=== PATIENT | male | born 1950 | race African-American/Black ===

== ENCOUNTER 2017-01-23 11:42 | Inpatient (IN) ==
[2017-01-23] MEDS: SODIUM CHLORIDE 0.9% 1,000 ML IV SCH ×2 (11:43→20:38)
[2017-01-23] MEDS ORDERED: MIDAZOLAM 2 MG/2 ML VIAL IV ONE (11:44)
[2017-01-23] MEDS ORDERED: fentaNYL 100 MCG/2 ML VIAL IV ONE (11:44)
[2017-01-23] MEDS ORDERED: METOPROLOL TARTRATE 5 MG/5 ML VIAL IV ONE ×2 (11:47→11:57)
[2017-01-23] MEDS ORDERED: ENOXAPARIN 60 MG/0.6 ML SYRINGE IV ONE (12:01)
[2017-01-23] MEDS ORDERED: TIROFIBAN 5,000 MCG/100 ML PREMIX IV ONE (12:04)
[2017-01-23] MEDS ORDERED: TIROFIBAN 5,000 MCG/100 ML PREMIX IV SCH (12:11)
[2017-01-23] MEDS ORDERED: LIDOCAINE 1% 20 ML VIAL INFILTRAT ONE (13:12)
[2017-01-23] MEDS ORDERED: TICAGRELOR 90 MG TABLET PO ONE (13:12)
[2017-01-23] MEDS ORDERED: ZALEPLON 5 MG CAPSULE PO PRN (13:15)
[2017-01-23] MEDS ORDERED: ACETAMINOPHEN 325 MG TABLET PO PRN (13:15)
[2017-01-23] MEDS ORDERED: ALUMINUM/MAGNES/SIMETH MAX STR 30 ML UDCUP PO PRN (13:15)
[2017-01-23] MEDS ORDERED: HYDROmorphone 2 MG/1 ML VIAL IV PRN (13:15)
[2017-01-23] MEDS ORDERED: AMIODARONE INJ 150 MG in DEXTROSE 5% 100 ML IV ONE (13:15)
[2017-01-23] MEDS ORDERED: ONDANSETRON 4 MG/2 ML VIAL IV PRN (13:15)
--- NOTE | 2017-01-23 13:15 | Operative Note ---
Date of procedure: 01/23/17 Procedure Preformed: Left heart catheterization with selective right coronary angiograms with stenting of the PDA. Surgeon / Physician: Francisco Oconnor Infrastructure Manager: Hardeep Pagan Post-op diagnosis: other Findings: The patient admitted with chest pain tachycardia severely elevated/accelerated hypertension. Patient declared a STEMI as an outpatient. Patient had distal circumflex artery stenosis and PDA stenosis and was significant with appear to be chronic. Successful stent placement the PDA. See the full report. Specimens: none sent Estimated blood loss: minimal Condition: stable Anesthesia: local, conscious sedation Disposition: floor
[2017-01-23] MEDS ORDERED: AMIODARONE INJ 450 MG in DEXTROSE 5% 241 ML IV SCH ×2 (14:30→20:30)
--- NOTE | 2017-01-23 14:55 | Cardiology History & Physical ---
Assessment and Plan (1) Abnormal ECG Status: Acute Assessment and plan: ECG is abnormal. Certainly it may be ischemic. He is tachycardic. Current Visit: Yes (2) Coronary artery disease Status: Acute Assessment and plan: Patient was sent found to have PDA disease as well as distal circumflex artery stenosis. This disease may be the cause of chest pain with his tachycardia. Successful intervention of the PDA. Current Visit: Yes (3) Accelerated hypertension Status: Acute Assessment and plan: Patient may have a least one of his medications and I think atenolol. The patient now blood pressure severely elevated upon admission as was his heart rates. Current Visit: Yes (4) Diabetes mellitus Status: Acute Current Visit: Yes Qualifiers: Diabetes mellitus type: type 1 Diabetes mellitus complication status: with circulatory complication Diabetes mellitus complication detail: with other circulatory complications Qualified Code(s): E10.59 - Type 1 diabetes mellitus with other circulatory complications (5) Dyslipidemia Status: Chronic Assessment and plan: Will check on his lipids. Current Visit: Yes (6) Obesity Status: Acute Assessment and plan: Needs weight loss. I do not have the exact weight on him at this time. Current Visit: Yes History of Present Illness Chief complaint: Chest pain History of present illness: Mr. Jimmy Salter is a 66 year old male who is brought in via ambulance with a STEMI alert given. Patient brought directly to the catheterization laboratory because of the chest pain abnormal ECG. 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 The patient approximately 0930 began having chest pain. He may feel little short of breath. The pain was moderate in degree. Nonradiating. He has not had this previously. History significant for diabetes, hypertension, dyslipidemia for which he states he takes medications. He recently ran out of at least one of his blood pressure medications he thinks is atenolol. He did not get refill. He denies any significant edema or PND orthopnea. Said no syncope near syncope. Said no prior cardiac diagnoses or therapy or testing. ECG revealed what appeared to be a regular tachycardia possibly sinus but cannot rule out atrial flutter. The patient in the catheterization laboratory heart rate did slow him was in atrial fibrillation. He was given metoprolol IV in the catheterization laboratory. Home Medications Medication Instructions Recorded Confirmed Type Ascorbic Acid Tab [Vitamin C Tab] 500 mg PO DAILY 02/22/15 02/22/15 History Aspirin [Ecotrin] 81 mg PO DAILY 02/22/15 02/22/15 History Atenolol [Tenormin] 25 mg PO DAILY 02/22/15 02/22/15 History Captopril [Capoten] 50 mg PO TID 02/22/15 02/22/15 History Indapamide [Lozol] 1.25 mg PO DAILY 02/22/15 02/22/15 History Insulin NPH Hum/Reg Insulin Hm 14 unit SUBCUT AC SUPPER 02/22/15 02/22/15 History [NovoLIN 70/30] Insulin NPH Hum/Reg Insulin Hm 30 unit SUBCUT AC BREAKFAST 02/22/15 02/22/15 History [NovoLIN 70/30] Loratadine [Claritin] 10 mg PO DAILY 02/22/15 02/22/15 History NIFEdipine XL TAB [Procardia Xl] 60 mg PO DAILY 02/22/15 02/22/15 History Pantoprazole Tab [Protonix Tab] 40 mg PO DAILY 02/22/15 02/22/15 History Saxagliptin [Onglyza] 2.5 mg PO DAILY 02/22/15 02/22/15 History Simvastatin [Zocor] 80 mg PO DAILY 02/22/15 02/22/15 History Spironolactone [Aldactone] 25 mg PO DAILY 02/22/15 02/22/15 History Allergies Allergy/AdvReac Type Severity Reaction Status Date / Time No Known Allergies Allergy Verified 02/22/15 07:53 Review of systems: Constitutional: Denies anorexia, chills, fatigue, fever, frequent falls, night sweats, weight gain, weight loss Eyes: Denies visual changes or loss of vision Ears: Denies decreased hearing, vertigo Nose, mouth and throat: Denies dysphagia, epistaxis, headaches, neck pain, tongue swelling, Neck: Denies thyromegaly or masses. No stiffness. Cardiovascular: as per HPI Respiratory: Denies cough, dyspnea, hemoptysis, dyspnea on exertion, wheezing, snoring Gastrointestinal: Denies abdominal pain, constipation, dyspepsia, dysphagia, hematemesis, hematochezia, melena, nausea, vomiting Genitourinary: Denies dysuria, hematuria, nocturia Musculoskeletal: Denies arthralgias, joint swelling, muscle weakness, myalgias Neurological: denies abnormal gait, abnormal speech, confusion, convulsions, frequent falls, headaches, memory loss, syncope Psychiatric: Denies anxiety, confusion, depression Endocrine: Denies cold intolerance, fatigue, heat intolerance Hematologic/Lymphatic: Denies easy bleeding, easy bruising Dermatologic: Denies Rash, itching, shingles Medical,Surgical,& Family Hx - Medical History Cardio: History of: Hypertension, Cardiovascular Problems (heart murur) Neurology: No history of: Seizures Endocrine: History of: Diabetes Mellitus (IDDM) Rheumatology: History of;: Rheumatoid Arthritis Respiratory: History of: Pneumonia Renal: History of: Renal Failure (kidneys fuctioning 50%) Genitourinary: History of: Prostate Problems (prostate cancer) Gastrointestinal: History of: GERD, Gastrointestinal Bleed, Hemorrhoids Other: History of: Cancer (prostate cancer) - Surgical History HEENT Surgeries: Surgical HX of: Tonsilectomy & Adenoidectomy Abdominal Surgeries: Surgical HX of: Colonoscopy Reproductive Surgeries: Surgical HX of;: Prostate Surgery - Family History Family History: Reports;: Family Diabetes - Social History Smoking Status: Never smoker Cardiology Physical Exam - Constitutional Vitals: Intake and Output 01/22/17 01/23/17 01/23/17 23:59 07:59 15:59 Other: Weight 108.862 kg Patient Weight 01/23/17 23:59 Weight 108.862 kg Exam: General appearance: Obese, no acute distress Head exam: normal inspection, atraumatic Eye exam: Pupils are equal and reactive. EOMI. There is no trauma. Ear exam: Anatomically normal. Normal auditory acuity to conversation. Oral exam: No significant oral lesions. Neck exam: normal inspection no JVD. No carotid bruit. Trachea is in midline. Respiratory exam: clear to auscultation bilaterally anteriorly with good air movement. No rales, rhonchi or wheezes. Cardiovascular exam: regular rate and rhythm, no murmur or gallop or rub. No precordial lift. No bruits over the major arteries. Chest wall/torso: Anatomically normal. No tenderness, deformity Peripheral Pulses: 2+ throughout. GI/Abdominal exam: normal bowel sounds, soft and nontender, no abdominal bruits or pulsatile masses. Musculoskeletal/Extremities exam: normal inspection without edema or cyanosis. No deformities or trauma. Neurological exam: alert, oriented X3. There is no gross neurologic deficits. Psychiatric exam: normal affect, normal mood. Cognitive function is grossly intact. Skin exam: normal color, warm. No rashes or other skin lesions. Result/EKG - Impressions Impressions: ECG with tachycardia and diffuse lateral EKG abnormalities in 1 and aVF with probably normal J point upsloping STs. V1 is suspicious of J-point elevation and ST segment elevation. Certain this may be indicative ischemia. Quality Measures - VTE Contraindication to Pharmacological VTE Prophylaxis: High Risk of Bleeding
[2017-01-23 15:06] LABS: Basophils % 0.8 % (0.0-0.8); Eosinophils # 0.1 10*3/uL (0.0-0.87); Eosinophils % 3.7 % (0.00-10.9); Hematocrit 35.9 VOL% (42.0-52.0); Hemoglobin 11.9 GM/DL (14.0-18.0); Immature Granulocytes % 0.3 %; Immature Granulocytes Absolute 0.01 #; Lymphocytes # 0.7 10*3/uL (1.4-4.0); Lymphocytes % 19.4 % (21.2-54.2); Mean Corpuscular HGB Conc 33.1 GM/DL (32-36); Mean Corpuscular Hemoglobin 27 PG (27-34); Mean Corpuscular Volume 80.7 FL (87-102); Mean Platelet Volume 11.3 FL (9.6-12.0); Monocytes # 0.3 10*3/uL (0.11-0.8); Monocytes % 8.2 % (1.7-12.7); Neutrophils # 2.4 10*3/uL (1.4-7.4); Neutrophils % 67.6 % (38.7-73.9); Platelet Count 241 T/CUMM (130-400); Red Blood Count 4.45 MC/CUMM (3.8-5.5); Red Cell Distribution Width 15.2 % (9.3-17.3); White Blood Count 3.6 T/CUMM (4-12)
[2017-01-23 15:08] LABS: Apearance,Urine CLEAR (Clear); Bilirubin,Urine Negative (Negative); Blood, Urine Negative (Negative); Glucose,Urine (UA) >=500 mg/dL (Negative); Ketones,Urine Negative (Negative); Nitrite,Urine Negative (Negative); Protein,Urine 30 MG/DL; RBC,Urine 1 /HPF (0-4); Urine Color Straw (Yellow); Urine Specific Gravity 1.027 (1.001-1.035); Urine Urobilinogen < 2.0 EU/DL (0.2-1.0); WBC,Urine 1 /HPF (0-6)
[2017-01-23] MEDS: METOPROLOL TARTRATE 50 MG TABLET PO SCH ×2 (15:08→20:39)
[2017-01-23] MEDS: ASPIRIN EC 81 MG TABLET PO SCH (15:08)
--- NOTE | 2017-01-23 15:21 | EKG Report ---
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
--- NOTE | 2017-01-23 15:23 | Event Note ---
Patient doing well post catheterization. He is back in normal sinus rhythm. He is little bradycardic at this time and we will thus decrease his medications. Will go ahead and hold his amiodarone and diltiazem. He is having no chest pains and he is eating johnathan crackers.
[2017-01-23 15:48] LABS: Alanine Aminotransferase 16 U/L (16-61); Alkaline Phosphatase 80 U/L (45-117); Aspartate Amino Transferase 13 U/L (0-37); Bilirubin,Total < 0.39 MG/DL (0.2-1.0); Calcium 8.9 MG/DL (8.5-10.1)
[2017-01-23 15:49] LABS: Blood Urea Nitrogen 24 MG/DL (7-18); Glucose 221 MG/DL (74-106); Magnesium 2.2 MG/DL (1.8-2.4); Osmolality,Calculated 280.1 MOS/KG (273-304); Sodium 135 MMOL/L (136-145); Troponin I Only 0.302 NG/ML (0.00-0.045)
[2017-01-23] MEDS ORDERED: DILTIAZEM 60 MG TABLET PO SCH (17:00)
--- NOTE | 2017-01-23 18:13 | XRay Report ---
XR chest 1V portable Indication: Chest pain. Tachycardia. Comparison: None. Technique: Portable AP chest was performed. Findings: Underpenetrated study with Limited inspiration demonstrates prominent central vasculature as well as increased linear reticular interstitial markings in the lung bases with additional scattered airspace opacities in the lung bases. Mild cardiomegaly is present. Bones and soft tissues demonstrate no significant abnormalities. Impression: 1. The appearance of the chest is likely influenced by technique, however pulmonary venous hypertensive changes and/or minimal edema within the lung bases could additionally be considered. 01/23/2017 6:10 PM PROCEDURE INTERPRETED AT [facility] DEPARTMENT OF RADIOLOGY Final Report Signed by: Dr. Rich Pathak
--- NOTE | 2017-01-23 19:58 | Cardiac Catheterization ---
Date of Procedure:: 01/23/17 Pre-op Diagnosis: ST segment elevation myocardial infarction, tachycardia severely elevated blood pressure. Post-op diagnosis: other Procedure: LEFT HEART CATHERIZATION History: 66-year-old man had chest pain earlier today. He was thought to have an ST elevation microinfarction ECG by EMS. Patient brought catheterization auditory with diagnosis of STEMI. Patient was severely tachycardic at a heart rate greater than 100 2230. He was also noted that he was severely hypertensive with blood pressure of 210+ systolic and diastolic pressure of 110+ . Pre-Op diagnosis: Chest pain abnormal ECG and diagnosis of STEMI. ECG was certainly abnormal. He was tachycardic and severely hypertensive. Postoperative diagnosis: Coronary disease noted but appear to be more small vessel chronic. Successful intervention of the PDA. Heart rates management was noted to be in atrial fibrillation and to slow his heart rates down. Procedures: 1. Left heart catheterization. 2. Left ventricular angiogram. 3. Selective left and right coronary angiograms. 4. Percutaneous coronary intervention with stent in right PDA 5. Right common femoral artery angiogram with Angio-Seal hemostasis. Equipment: 6 [place]ander arterial sheath, 6 [place]ander diagnostic pigtail catheter, JL4 and JR4 diagnostic catheters. A 6 [place] Angio-Seal hemostatic device. For percutaneous coronary intervention of right PDA: Initially a JR4 guide was attempted but did not give adequate guide support and we exchanged for a hays [employer] guide. We had difficulty with this and used a [employer] support guide catheter inside this guide. Pro-water flex guidewire was the one that worked even though we try some others. We used a 2.0 x 15 mm Rx balloon for predilation with a total of 4 inflations ranged from 8-12 hiro in 11-25 seconds duration. We exchanged for a 2.25 x 60 mm Synergy ANGELA was deployed at 12 hiro for 20 seconds. Medications: Preoperative Benadryl and Valium given by mouth. Lidocaine 1% local anesthesia 10 mls administered by myself. Intraprocedure patient received Versed 2 milligrams IVP, fentanyl 100 micrograms IVP, Lopressor total of 10 milligrams IVP. For PCI: Lovenox 33 mgms; Aggrastat bolus 54.5 mls; Integrilin infusion 19.6 ml/hr, Brilinta 180 mgms. Complications: None immediate. Contrast: Omnipaque 390 milliliters. Description of procedure: Patient is brought emergent to the catheterization laboratory where their right groin was prepped and draped in usual fashion. IV sedation was then obtained after which local anesthesia was administered at the right groin over the right common femoral artery. Using modified Seldinger technique the right common femoral artery was cannulated with 6 [place] Ze[place]ander arterial sheath placed. The JL4 diagnostic coronary catheter was then advanced through the sheath in a retrograde approach and used to cannulate the left coronary artery of which angiograms were obtained in multiple projections. This catheter was then removed. The JR 4 diagnostic coronary catheter was then advanced retrograde through the aorta and used to cannulate the right coronary artery of which angiograms were obtained in multiple projections. Angiograms were then reviewed. Right coronary catheter was then removed. We proceeded with intervention of the PDA. Initially the JR4 guide catheters used but did not give us adequate support. We has changed for the hays crook guide catheter was gave us better support but still inadequate to cannulate the PDA in advance of balloon. A Guidezilla II catheter was used inside the PTCA guide through which we were able to advance the guidewire and balloon. Inflations were carried out as described above. It should be noted early we were able to get a balloon across early which is a 2.0 x 15 mm apex balloon with an 8 hiro inflation for 12 seconds. This is before we had exchanged for guide catheter in better support. After we had the better support 3 inflations were carried out as noted above at 12 hiro ranging from 11- 25 seconds. Once the predilation be carried out we exchanged for a 2.25 x 60 minutes Synergy ANGELA and this was deployed at 12 hiro for 20 seconds. We had excellent results without any additional acute complications. This time interventional equipment was removed. The guide cath was pulled into the sheath and right comfort angiogram was obtained noting that the sheath was inserted in the common femoral artery. This time the guide was completely removed. The pigtail catheter was then advanced through the sheath in a retrograde approach through the aorta to the aortic valve. The catheter was advanced through the aortic valve where left ventricular pressures were measured. The catheter was then pulled back into the aortic root and pressures measured. The catheter was then advanced across the aortic valve into the left ventricle where left ventricular angiogram was obtained in the right anterior oblique view. This catheter was then removed. Right cuff artery was then closed and hemostasis obtained using the Angio- Seal device. Hemodynamic data: LV 152/11, EDP 11; AO root 164/86, mean 115. Left ventricular angiogram: Left ventricle is normal size and overall probably normal systolic function at least ejection fraction of 55% and what appears to probably be left ventricular hypertrophy. There was no significant mitral valve regurgitation. The aortic valve appeared to be a tricuspid structure. Left main coronary artery angiogram: Left main coronary is large and long bifurcating LAD and circumflex arteries. It is without stenosis. Left anterior descending artery angiogram: The LAD proximally is a medium large size vessel. The first diagonal branch is small medium caliber but long vessel. Other diagonals are small-caliber. The LAD has probably some calcification luminal irregularities but less than 20% stenosis. MAURISIO-3 flow was present. LAD does extend to the posterior apical region. Circumflex artery angiogram: Circumflex artery and its very proximal portion at the takeoff from the left main is medium to large in size. The first obtuse marginal branch has a very proximal takeoff is a medium large size vessel, large area of anterior lateral myocardium. Beyond this the circumflex continues giving rise to some small obtuse marginal branches and very distally very small posterior ventricular branches. The very distal portion of the circumflex artery that is small has maybe 70-80% stenosis. This is a very tortuous area and vessels are small. Flow though appears to be at least MAURISIO II or MAURISIO-3. Right coronary artery angiogram: The RCA is a medium caliber vessel. It is dominant. PDA is somewhat of a small caliber vessel with proximal stenosis of 90% with MAURISIO II flow. There is diffuse luminal irregularities throughout the RCA proper with some calcification. The posterior lateral branches are small medium caliber vessels with a small AV node artery distally. PCI of right PDA: This was carried out as described above with the 90+% stenosis with MAURISIO-3 flow dilated 0% residual stenosis and MAURISIO-3 flow. Right common femoral artery angiogram: Right comfort is widely patent successfully initial hemostasis. Impression: 1. Left ventricle is normal size and systolic function ejection fraction probably at least 55% without segmental wall motion abnormalities. 2. LVEDP is normal at 11 mmHg. 3. There is no significant gradient across the aortic valve. 4. No significant mitral valve regurgitation is demonstrated 5. RCA with diffuse luminal irregularities and dominant. PDA had 90+% stenosis with MAURISIO II flow. 6. Successful stent placement to the PDA dilated from 90-0% residual stenosis and from MAURISIO II to MAURISIO III flow. 7. Left main coronary is widely patent without stenosis or disease. 8. Circumflex artery is nondominant luminal irregularities with a 78% distal stenosis and a very small vessel that is tortuous. 9. LAD widely patent luminal irregularities and some calcification. 10. Successful Angio-Seal of the right common femoral artery. Discussion: This patient's presenting ECG certainly appears to be potentially ischemic but only if he lays may be indicate ST segment elevation infarction. Much of his symptomatology and EKG findings I think is secondary to his tachycardia and severe hypertensive episode. We will follow the patient up post intervention catheterization. He should be aggressively treated for his medical issues. Certainly the fact that he ran out of his his antihypertensive medications is probably contributed to this event. Implants: See above Anesthesia: local, moderate conscious sedation Surgeon / Physician: Francisco Oconnor Network Systems Consultant: other (See immediate procedure note) Estimated blood loss: minimal Specimens: none sent Condition: stable Disposition: ICU/CCU - Medications / Follow-up
[2017-01-23] MEDS: TICAGRELOR 90 MG TABLET PO SCH (20:38)
[2017-01-23] MEDS: LOSARTAN 50 MG TABLET PO SCH (20:39)
[2017-01-23] MEDS ORDERED: ATORVASTATIN 40 MG TABLET PO SCH (21:00)
[2017-01-23 22:12] LABS: CKMB % 6.2 %
[2017-01-23 22:16] LABS: Troponin I Only 1.7 NG/ML (0.00-0.045)
[2017-01-23] MEDS: METOPROLOL TARTRATE 5 MG/5 ML VIAL IV PRN (23:24)
[2017-01-24] MEDS: hydrALAZINE 20 MG/1 ML VIAL IV PRN ×3 (01:44→16:57)
[2017-01-24] MEDS: NITROGLYCERIN SL 0.4 MG TABLET SL PRN ×3 (02:01→02:26)
[2017-01-24] MEDS ORDERED: MORPHINE 2 MG/1 ML SYRINGE IV PRN (02:16)
[2017-01-24] MEDS: SODIUM CHLORIDE 0.9% 1,000 ML IV SCH ×3 (04:41→20:12)
[2017-01-24] MEDS: cloNIDine 0.1 MG TABLET PO PRN (04:42)
[2017-01-24 05:33] LABS: Basophils % 0.5 % (0.0-0.8); Eosinophils # 0.2 10*3/uL (0.0-0.87); Eosinophils % 2.6 % (0.00-10.9); Hematocrit 36.2 VOL% (42.0-52.0); Hemoglobin 12.2 GM/DL (14.0-18.0); Immature Granulocytes % 0.3 %; Immature Granulocytes Absolute 0.02 #; Lymphocytes # 0.6 10*3/uL (1.4-4.0); Lymphocytes % 9.2 % (21.2-54.2); Mean Corpuscular HGB Conc 33.7 GM/DL (32-36); Mean Corpuscular Hemoglobin 27 PG (27-34); Mean Corpuscular Volume 79.2 FL (87-102); Mean Platelet Volume 11.4 FL (9.6-12.0); Monocytes # 0.5 10*3/uL (0.11-0.8); Monocytes % 8.1 % (1.7-12.7); Neutrophils # 4.9 10*3/uL (1.4-7.4); Neutrophils % 79.3 % (38.7-73.9); Platelet Count 234 T/CUMM (130-400); Red Blood Count 4.57 MC/CUMM (3.8-5.5); Red Cell Distribution Width 15.2 % (9.3-17.3); White Blood Count 6.2 T/CUMM (4-12)
[2017-01-24 06:08] LABS: Calcium 9.6 MG/DL (8.5-10.1); Osmolality,Calculated 284.7 MOS/KG (273-304); Potassium 3.9 MMOL/L (3.5-5.1)
[2017-01-24 06:09] LABS: Risk Ratio 4.21; VLDL CHOLESTEROL 24.2 MG/DL
[2017-01-24 06:27] LABS: CKMB % 4.6 %
[2017-01-24 06:28] LABS: Troponin I Only 1.3 NG/ML (0.00-0.045)
--- NOTE | 2017-01-24 07:46 | EKG Report ---
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
--- NOTE | 2017-01-24 08:47 | Cardiology Progress Note ---
<Ritu Botello E - Last Filed: 01/24/17 09:42> Assessment and Plan - Time spent with patient Time spent with patient: Less than 30 minutes (1) Abnormal ECG Status: Acute Assessment and plan: See plan of care listed below. Current Visit: Yes (2) Coronary artery disease Status: Acute Assessment and plan: See plan of care listed below. Current Visit: Yes (3) Accelerated hypertension Status: Acute Assessment and plan: See plan of care listed below. Current Visit: Yes (4) Diabetes mellitus Status: Chronic Assessment and plan: See plan of care listed below. Current Visit: Yes Qualifiers: Diabetes mellitus type: type 1 Diabetes mellitus complication status: with circulatory complication Diabetes mellitus complication detail: with other circulatory complications Qualified Code(s): E10.59 - Type 1 diabetes mellitus with other circulatory complications (5) Dyslipidemia Status: Chronic Assessment and plan: See plan of care listed below. Current Visit: Yes (6) Obesity Status: Chronic Assessment and plan: See plan of care listed below. Current Visit: Yes Qualifiers: Body mass index: BMI 33.0-33.9 Cardiology - PN: Subj Interval history: Tax Attorney: Dr. Ospina SUMMARY: Mr. Marquez is a 66 year old male who is brought to the hospital via ambulance with a STEMI alert. He was brought directly to the catheterization lab because of chest pain and abnormal EKG. He has a history of diabetes, hypertension, dyslipidemia. He had recently ran out of 1 of his blood pressure medications and did not get this refilled. His blood pressure was extremely elevated upon admission. EKG revealed what appeared to be regular tachycardia possibly sinus, but cannot rule out atrial flutter. 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 JANUARY 24, 2017 UPDATE: Mr. Marquez has been observed overnight in the CCU. He remains slightly hypertensive. We are continuing to adjust his medications. Right groin is open to air, no bleeding, hematoma, or bruit at site. Femoral pulse 3+. Distal pulses present and palpable bilaterally. His home medications were confirmed yesterday evening after we had already started him on appropriate medical therapy. We will change his calcium channel cesar back to Procardia this evening and see how he tolerates. Creatinine is 1.8 today. He is on Cozaar 50mg po BID. Will continue to monitor BMP. We'll transfer him to the floor today and continue to monitor. ASSESSMENT/PLAN: 1. ABNORMAL EKG - ECG abnormal on admission. Certainly it may be ischemic. Will further discuss with Dr. Oconnor and await additional recommendations. 2. 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 This disease may be the cause of chest pain with his tachycardia. Successful intervention of the PDA. 3. ACCELERATED HYPERTENSION - Remains slightly elevated. Will continue to monitor and adjust medications accordingly. 4. DIABETES MELLITUS - Continue accuchecks ACHS and sliding scale insulin. 5. DYSLIPIDEMIA - Continue lipid lowering agent. Lipid panel revealed triglycerides 121, cholesterol 164, LDL 107, HDL 39. 6. OBESITY - Chronic. Encouraged lifestyle modifications with diet and exercise. Cardiac rehab has been consulted. Exam (Progress Note) - Constitutional Vitals: Period Temp Pulse Resp BP Sys/Faulkner Pulse Ox Last 24 Hr 97.9 F-98.7 F 53-74 16-27 128-184/66-102 94-100 Exam: General: Present: Appears Well, No Apparent Distress. Pleasant and cooperative. HEENT: Present: PERRL, Normocephaly, atraumatic. Mucus Membranes Moist. No jaundice noted. Conjunctiva moist and clear. Neck: Present: Supple Neck, Midline Trachea, No Masses, No Bruit, No tenderness Cardiac: Present: Regular Rate and Rhythm, No Murmur Lungs: Present: clear to auscultation bilaterally, no wheezes, rhonchi, rales. Neuro: Present: Awake, alert, and oriented x3. Moves all extremities well without hemiparesis or paralysis. Grossly Intact. Absent: Resting Tremor, Essential Tremor Abdomen: Present: Soft, Active Bowel Sounds, No Masses, Non-Tender, nondistended. No abdominal bruit or thrill noted. Skin: Present: Clear. Absent: Rash, No skin breakdown. Back: Normal inspection, no vertebral tenderness. Musculoskeletal: Present: No Fluid Collection, No Pain, Normal Range of Motion Extremities: Present: Normal Gait, No Clubbing, No Cyanosis, Upper Extr. Pulses 2+, Lower Extr. Pulses 2+, No edema. Capillary refill less than 3 seconds. Right groin: No bleeding, hematoma, or bruit at site. Femoral pulse 3+. Distal pulses 2+ bilaterally. Result/EKG - Labs CBC & BMP: 01/24/17 04:45 01/24/17 04:45 Lab Results: I have reviewed the past 24 hour labs Labs: Laboratory Results - last 24 hr 01/23/17 01/23/17 01/23/17 14:00 14:47 14:47 WBC 3.6 L RBC 4.45 Hgb 11.9 L Hct 35.9 L MCV 80.7 L MCH 27 MCHC 33.1 RDW 15.2 Plt Count 241 MPV 11.3 Neut % (Auto) 67.6 Lymph % (Auto) 19.4 L Cache % (Auto) 8.2 Eos % (Auto) 3.7 Baso % (Auto) 0.8 Neut # (Auto) 2.4 Lymph # (Auto) 0.7 L Cache # (Auto) 0.3 Eos # (Auto) 0.1 Baso # (Auto) 0.0 Immature Gran % 0.3 Nucleated RBC % 0.0 Immature Gran # 0.01 Nucleated RBCs # 0.00 Immature Plt Fraction 0.0 Sodium 135 L Potassium 4.0 Chloride 102 Carbon Dioxide 28 Anion Gap 9.0 BUN 24 H Creatinine 1.60 H GFR Calculation 68 BUN/Creatinine Ratio 15.00 Glucose 221 H POC Glucose Calculated Osmolality 280.1 Calcium 8.9 Magnesium 2.2 Total Bilirubin < 0.39 AST 13 ALT 16 Alkaline Phosphatase 80 Total Creatine Kinase CK-MB (CK-2) CK and CKMB Interp Troponin I Total Protein 6.0 L Albumin 3.0 L Globulin 3.0 Albumin/Globulin Ratio 1.0 L Triglycerides Cholesterol LDL Cholesterol VLDL Cholesterol HDL Cholesterol Heart Disease Risk Ratio Urine Color Straw Urine Appearance Clear Urine pH 5.0 Ur Specific Leroy 1.027 Urine Protein 30 Urine Glucose (UA) >=500 Urine Ketones Negative Urine Blood Negative Urine Nitrate Negative Urine Bilirubin Negative Urine Urobilinogen < 2.0 H Urine Leukocytes Negative Urine RBC 1 Urine WBC 1 Ur Culture Indicated? Not indicated 01/23/17 01/23/17 01/23/17 14:47 15:13 20:45 WBC RBC Hgb Hct MCV MCH MCHC RDW Plt Count MPV Neut % (Auto) Lymph % (Auto) Cache % (Auto) Eos % (Auto) Baso % (Auto) Neut # (Auto) Lymph # (Auto) Cache # (Auto) Eos # (Auto) Baso # (Auto) Immature Gran % Nucleated RBC % Immature Gran # Nucleated RBCs # Immature Plt Fraction Sodium Potassium Chloride Carbon Dioxide Anion Gap BUN Creatinine GFR Calculation BUN/Creatinine Ratio Glucose POC Glucose 244 H 201 H Calculated Osmolality Calcium Magnesium Total Bilirubin AST ALT Alkaline Phosphatase Total Creatine Kinase 119 CK-MB (CK-2) 4.9 H CK and CKMB Interp Troponin I 0.302 H Total Protein Albumin Globulin Albumin/Globulin Ratio Triglycerides Cholesterol LDL Cholesterol VLDL Cholesterol HDL Cholesterol Heart Disease Risk Ratio Urine Color Urine Appearance Urine pH Ur Specific Leroy Urine Protein Urine Glucose (UA) Urine Ketones Urine Blood Urine Nitrate Urine Bilirubin Urine Urobilinogen Urine Leukocytes Urine RBC Urine WBC Ur Culture Indicated? 01/23/17 01/24/17 01/24/17 21:30 04:45 04:45 WBC 6.2 D RBC 4.57 Hgb 12.2 L Hct 36.2 L MCV 79.2 L MCH 27 MCHC 33.7 RDW 15.2 Plt Count 234 MPV 11.4 Neut % (Auto) 79.3 H Lymph % (Auto) 9.2 L Cache % (Auto) 8.1 Eos % (Auto) 2.6 Baso % (Auto) 0.5 Neut # (Auto) 4.9 Lymph # (Auto) 0.6 L Cache # (Auto) 0.5 Eos # (Auto) 0.2 Baso # (Auto) 0.0 Immature Gran % 0.3 Nucleated RBC % 0.0 Immature Gran # 0.02 Nucleated RBCs # 0.00 Immature Plt Fraction 0.0 Sodium 138 Potassium 3.9 Chloride 105 Carbon Dioxide 25 Anion Gap 11.9 BUN 25 H Creatinine 1.70 H GFR Calculation 63 BUN/Creatinine Ratio 14.00 Glucose 199 H POC Glucose Calculated Osmolality 284.7 Calcium 9.6 Magnesium Total Bilirubin AST ALT Alkaline Phosphatase Total Creatine Kinase 134 CK-MB (CK-2) 8.3 H CK and CKMB Interp 6.2 Troponin I 1.700 H D Total Protein Albumin Globulin Albumin/Globulin Ratio Triglycerides 121 Cholesterol 164 LDL Cholesterol 107.0 VLDL Cholesterol 24.2 HDL Cholesterol 39 L Heart Disease Risk Ratio 4.21 Urine Color Urine Appearance Urine pH Ur Specific Leroy Urine Protein Urine Glucose (UA) Urine Ketones Urine Blood Urine Nitrate Urine Bilirubin Urine Urobilinogen Urine Leukocytes Urine RBC Urine WBC Ur Culture Indicated? 01/24/17 01/24/17 04:45 07:47 WBC RBC Hgb Hct MCV MCH MCHC RDW Plt Count MPV Neut % (Auto) Lymph % (Auto) Cache % (Auto) Eos % (Auto) Baso % (Auto) Neut # (Auto) Lymph # (Auto) Cache # (Auto) Eos # (Auto) Baso # (Auto) Immature Gran % Nucleated RBC % Immature Gran # Nucleated RBCs # Immature Plt Fraction Sodium Potassium Chloride Carbon Dioxide Anion Gap BUN Creatinine GFR Calculation BUN/Creatinine Ratio Glucose POC Glucose 202 H Calculated Osmolality Calcium Magnesium Total Bilirubin AST ALT Alkaline Phosphatase Total Creatine Kinase 147 CK-MB (CK-2) 6.7 H CK and CKMB Interp 4.6 Troponin I 1.300 H D Total Protein Albumin Globulin Albumin/Globulin Ratio Triglycerides Cholesterol LDL Cholesterol VLDL Cholesterol HDL Cholesterol Heart Disease Risk Ratio Urine Color Urine Appearance Urine pH Ur Specific Leroy Urine Protein Urine Glucose (UA) Urine Ketones Urine Blood Urine Nitrate Urine Bilirubin Urine Urobilinogen Urine Leukocytes Urine RBC Urine WBC Ur Culture Indicated? - EKG EKG results: interpreted by me, sinus rhythm Quality Measures - VTE Contraindication to Pharmacological VTE Prophylaxis: High Risk of Bleeding Specialty Discharge - Follow Up or Referrals Follow up with: Dwayne Ospina MD [Physician] - 2 Weeks (Follow up with Dr. Ospina in 2 weeks for groin check with BMP and EKG. ) <Francisco Oconnor - Last Filed: 01/24/17 16:13> Assessment and Plan (1) Abnormal ECG Status: Acute Current Visit: Yes (2) Coronary artery disease Status: Acute Current Visit: Yes (3) Accelerated hypertension Status: Acute Current Visit: Yes (4) Diabetes mellitus Status: Chronic Current Visit: Yes Qualifiers: Diabetes mellitus type: type 1 Diabetes mellitus complication status: with circulatory complication Diabetes mellitus complication detail: with other circulatory complications Qualified Code(s): E10.59 - Type 1 diabetes mellitus with other circulatory complications (5) Dyslipidemia Status: Chronic Current Visit: Yes (6) Obesity Status: Chronic Current Visit: Yes Qualifiers: Body mass index: BMI 33.0-33.9 Cardiology - PN: Subj Interval history: Patient personally reviewed and examined and chart reviewed. Discussed his case with Ritu Botello NP. Patient had no further chest pain since admission. Had no shortness of breath. His blood pressures have still been higher than we would like. He is not sure what his baseline control was as an outpatient. His peak troponin was 1.7 with normal CPKs. His lipids are not at goal. We switched him from simvastatin to atorvastatin yesterday. Generally the patient is doing well though. He is not having any complaints. Agree with transferring to the floor monitoring. His blood pressures are stable tomorrow he could be discharged. I believe his primary care physician is Dr. Yen Au she can follow with his blood pressure but we can assist with this. Exam (Progress Note) - Constitutional Vitals: Period Temp Pulse Resp BP Sys/Faulkner Pulse Ox Last 24 Hr 98 F-98.7 F 56-81 12-27 151-185/66-97 94-100 Result/EKG - Labs CBC & BMP: 01/24/17 04:45 01/24/17 04:45 Labs: Laboratory Results - last 24 hr 01/23/17 01/23/17 01/24/17 20:45 21:30 04:45 WBC 6.2 D RBC 4.57 Hgb 12.2 L Hct 36.2 L MCV 79.2 L MCH 27 MCHC 33.7 RDW 15.2 Plt Count 234 MPV 11.4 Neut % (Auto) 79.3 H Lymph % (Auto) 9.2 L Cache % (Auto) 8.1 Eos % (Auto) 2.6 Baso % (Auto) 0.5 Neut # (Auto) 4.9 Lymph # (Auto) 0.6 L Cache # (Auto) 0.5 Eos # (Auto) 0.2 Baso # (Auto) 0.0 Immature Gran % 0.3 Nucleated RBC % 0.0 Immature Gran # 0.02 Nucleated RBCs # 0.00 Immature Plt Fraction 0.0 Sodium Potassium Chloride Carbon Dioxide Anion Gap BUN Creatinine GFR Calculation BUN/Creatinine Ratio Glucose POC Glucose 201 H Calculated Osmolality Calcium Total Creatine Kinase 134 CK-MB (CK-2) 8.3 H CK and CKMB Interp 6.2 Troponin I 1.700 H D Triglycerides Cholesterol LDL Cholesterol VLDL Cholesterol HDL Cholesterol Heart Disease Risk Ratio 01/24/17 01/24/17 01/24/17 04:45 04:45 07:47 WBC RBC Hgb Hct MCV MCH MCHC RDW Plt Count MPV Neut % (Auto) Lymph % (Auto) Cache % (Auto) Eos % (Auto) Baso % (Auto) Neut # (Auto) Lymph # (Auto) Cache # (Auto) Eos # (Auto) Baso # (Auto) Immature Gran % Nucleated RBC % Immature Gran # Nucleated RBCs # Immature Plt Fraction Sodium 138 Potassium 3.9 Chloride 105 Carbon Dioxide 25 Anion Gap 11.9 BUN 25 H Creatinine 1.70 H GFR Calculation 63 BUN/Creatinine Ratio 14.00 Glucose 199 H POC Glucose 202 H Calculated Osmolality 284.7 Calcium 9.6 Total Creatine Kinase 147 CK-MB (CK-2) 6.7 H CK and CKMB Interp 4.6 Troponin I 1.300 H D Triglycerides 121 Cholesterol 164 LDL Cholesterol 107.0 VLDL Cholesterol 24.2 HDL Cholesterol 39 L Heart Disease Risk Ratio 4.21 01/24/17 11:18 WBC RBC Hgb Hct MCV MCH MCHC RDW Plt Count MPV Neut % (Auto) Lymph % (Auto) Cache % (Auto) Eos % (Auto) Baso % (Auto) Neut # (Auto) Lymph # (Auto) Cache # (Auto) Eos # (Auto) Baso # (Auto) Immature Gran % Nucleated RBC % Immature Gran # Nucleated RBCs # Immature Plt Fraction Sodium Potassium Chloride Carbon Dioxide Anion Gap BUN Creatinine GFR Calculation BUN/Creatinine Ratio Glucose POC Glucose 254 H Calculated Osmolality Calcium Total Creatine Kinase CK-MB (CK-2) CK and CKMB Interp Troponin I Triglycerides Cholesterol LDL Cholesterol VLDL Cholesterol HDL Cholesterol Heart Disease Risk Ratio
[2017-01-24] MEDS ORDERED: PANTOPRAZOLE 40 MG TABLET PO SCH (09:00)
[2017-01-24] MEDS ORDERED: amLODIPine 5 MG TABLET PO SCH (09:00)
[2017-01-24] MEDS ORDERED: PANTOPRAZOLE 40 MG TABLET PO ONE (09:46)
[2017-01-24] MEDS: METOPROLOL TARTRATE 50 MG TABLET PO SCH ×2 (09:49→20:10)
[2017-01-24] MEDS: LOSARTAN 50 MG TABLET PO SCH ×2 (09:49→20:10)
[2017-01-24] MEDS: ASPIRIN EC 81 MG TABLET PO SCH (09:50)
[2017-01-24] MEDS: TICAGRELOR 90 MG TABLET PO SCH ×2 (09:50→20:10)
[2017-01-24] MEDS: FAMOTIDINE 20 MG TABLET PO SCH (09:54)
[2017-01-24] MEDS: DOCUSATE SODIUM 100 MG CAPSULE PO SCH ×2 (09:54→20:10)
[2017-01-24] MEDS: METOPROLOL TARTRATE 5 MG/5 ML VIAL IV PRN (18:31)
[2017-01-24] MEDS ORDERED: GLUCAGON 1 MG VIAL IM PRN (19:01)
[2017-01-24] MEDS ORDERED: DEXTROSE 50% 25 GM/50 ML SYRINGE IV PRN (19:01)
[2017-01-24] MEDS: INSULIN LISPRO 100 UNIT/ML SUBCUT SCH ×2 (19:55→20:11)
[2017-01-24] MEDS: ASCORBIC ACID 500 MG TABLET PO SCH (20:10)
[2017-01-24] MEDS: LORATADINE 10 MG TABLET PO SCH (20:10)
--- NOTE | 2017-01-24 20:18 | ECHO Report ---
Jimmy Bala Exam Date: 01/24/2017 07:48 Referring Physician: Technologist: Clarissa Agrawal RDCS Age: 66 Ht (in): 71 Wt (lb): 240 Gender: M Exam Location: [facility] Echo Indications: ST elevation (STEMI) myocardial infarction of unspecified site, Chest pain, unspecified, Essential (primary) hypertension, Tachycardia, unspecified, s/p CATH with stent BP: 173 / 87 HR: 70 Rhythm: Sinus Technical Quality: IMPRESSIONS 1. Left ventricle is normal size systolic function with moderate concentric left ventricular hypertrophy. Ejection fraction 60%. 2. Mildly dilated left atrium. 3. Right ventricle is probably normal size with free wall hypertrophy and normal systolic function. 4. Mitral valve slightly thickened and mild regurgitation. 5. Sclerotic aortic valve but functionally normal. 6. Trace to mild tricuspid regurgitation. 7. Mild pulmonic valve regurgitation. 8. Moderate to severely elevated right-sided pressures. MEASUREMENTS (Male / Female) Normal Values 2D ECHO LV Diastolic Diameter PLAX 4.8 cm 4.2 - 5.9 / 3.9 - 5.3 cm LV Systolic Diameter PLAX 3.0 cm LV Fractional Shortening PLAX 36.2 % IVS Diastolic Thickness 1.7 cm 0.6 - 1.0 / 0.6 - 0.9 cm LVPW Diastolic Thickness 1.7 cm 0.6 - 1.0 / 0.6 - 0.9 cm RV Internal Dim ED PLAX 3.9 cm Aortic Root Diameter 3.9 cm LA Systolic Diameter LX 4.7 cm 3.0 - 4.0 / 2.7 - 3.8 cm DOPPLER TR Peak Velocity 362.0 cm/s TR Peak Gradient 52.4 mmHg FINDINGS Left Ventricle Normal left ventricular cavity size. Moderate left ventricular hypertrophy. Left ventricular ejection fraction is estimated at 60 %. Right Ventricle Right ventricle grossly normal size and systolic function. Free wall hypertrophy. Right Atrium Right atrium is probably upper limits of normal size. Left Atrium Mildly increased left atrial size. Mitral Valve Mildly thickened mitral valve. Mild mitral valve regurgitation. Aortic Valve Aortic valve sclerosis without stenosis. Trace aortic valve regurgitation. Tricuspid Valve Morphologically normal tricuspid valve. Trace to mild tricuspid valve regurgitation. Tricuspid regurgitation velocities suggest a PAP of 62 mmHg. Pulmonic Valve Morphologically normal pulmonic valve. Mild pulmonary valve regurgitation. Pericardium No effusion noted. Aorta Aortic root is normal diameter. Francisco Oconnor MD (Electronically Signed) Final Date: 24 January 2017 20:17
[2017-01-25] MEDS: SODIUM CHLORIDE 0.9% 1,000 ML IV SCH ×2 (00:38→04:19)
[2017-01-25] MEDS: hydrALAZINE 20 MG/1 ML VIAL IV PRN (00:39)
[2017-01-25] MEDS: METOPROLOL TARTRATE 5 MG/5 ML VIAL IV PRN (04:19)
--- NOTE | 2017-01-25 07:17 | Event Note ---
Patient denies any chest pain shortness of breath. This morning his heart rate and blood pressure still higher especially his blood pressures and we will. I would increase some of his medication make some changes for this. His exam is really unremarkable. Will follow up with full note later.
[2017-01-25] MEDS: INSULIN LISPRO 100 UNIT/ML SUBCUT SCH ×4 (07:27→21:40)
--- NOTE | 2017-01-25 08:02 | Cardiology Progress Note ---
<Ritu Botello E - Last Filed: 01/25/17 07:56> Assessment and Plan - Time spent with patient Time spent with patient: Less than 30 minutes (1) NSTEMI (non-ST elevated myocardial infarction) Status: Acute Assessment and plan: See plan of care listed below. Current Visit: Yes (2) Coronary artery disease Status: Acute Assessment and plan: See plan of care listed below. Current Visit: Yes (3) Accelerated hypertension Status: Acute Assessment and plan: See plan of care listed below. Current Visit: Yes (4) Diabetes mellitus Status: Chronic Assessment and plan: See plan of care listed below. Current Visit: Yes Qualifiers: Diabetes mellitus type: type 1 Diabetes mellitus complication status: with circulatory complication Diabetes mellitus complication detail: with other circulatory complications Qualified Code(s): E10.59 - Type 1 diabetes mellitus with other circulatory complications (5) Dyslipidemia Status: Chronic Assessment and plan: See plan of care listed below. Current Visit: Yes (6) Obesity Status: Chronic Assessment and plan: See plan of care listed below. Current Visit: Yes Qualifiers: Body mass index: BMI 33.0-33.9 Cardiology - PN: Subj Interval history: Recovery Room Rn: Dr. Ospina SUMMARY: Mr. Marquez is a 66 year old male who is brought to the hospital via ambulance with a STEMI alert. He was brought directly to the catheterization lab because of chest pain and abnormal EKG. He has a history of diabetes, hypertension, dyslipidemia. He had recently ran out of 1 of his blood pressure medications and did not get this refilled. His blood pressure was extremely elevated upon admission. EKG revealed what appeared to be regular tachycardia possibly sinus, but cannot rule out atrial flutter. 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 JANUARY 25, 2017 UPDATE: Mr. Marquez remains slightly hypertensive. We are continuing to adjust his medications. Right groin is open to air, no bleeding, hematoma, or bruit at site. Femoral pulse 3+. Distal pulses present and palpable bilaterally. BMP is pending. He is on Cozaar 50mg po BID. Will continue to monitor BMP, if creatinine is stable, we may be able . We were going to transfer him to the floor yesterday but there were no beds available. If his blood pressure remains stable today, may be able to discharge home later this evening. Will further discuss with Dr. Oconnor and await additional recommendations. ASSESSMENT/PLAN: 1. NSTEMI- EKG was abnormal on admission. 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 He will be continued on DAPT, beta cesar, statin, and ARB. Will continue to monitor renal function. e 2. 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 This disease may be the cause of chest pain with his tachycardia. Successful intervention of the PDA. 3. ACCELERATED HYPERTENSION - Remains slightly elevated. Will continue to monitor and adjust medications accordingly. 4. DIABETES MELLITUS - Continue accuchecks ACHS and sliding scale insulin. 5. DYSLIPIDEMIA - Continue lipid lowering agent. Lipid panel revealed triglycerides 121, cholesterol 164, LDL 107, HDL 39. 6. OBESITY - Chronic. Encouraged lifestyle modifications with diet and exercise. Cardiac rehab has been consulted. Exam (Progress Note) - Constitutional Vitals: Period Temp Pulse Resp BP Sys/Faulkner Pulse Ox Last 24 Hr 97.8 F-98.3 F 65-81 13-24 164-193/71-107 95-100 Exam: General: Present: Appears Well, No Apparent Distress. Pleasant and cooperative. HEENT: Present: PERRL, Normocephaly, atraumatic. Mucus Membranes Moist. No jaundice noted. Conjunctiva moist and clear. Neck: Present: Supple Neck, Midline Trachea, No Masses, No Bruit, No tenderness Cardiac: Present: Regular Rate and Rhythm, No Murmur Lungs: Present: clear to auscultation bilaterally, no wheezes, rhonchi, rales. Neuro: Present: Awake, alert, and oriented x3. Moves all extremities well without hemiparesis or paralysis. Grossly Intact. Absent: Resting Tremor, Essential Tremor Abdomen: Present: Soft, Active Bowel Sounds, No Masses, Non-Tender, nondistended. No abdominal bruit or thrill noted. Skin: Present: Clear. Absent: Rash, No skin breakdown. Back: Normal inspection, no vertebral tenderness. Musculoskeletal: Present: No Fluid Collection, No Pain, Normal Range of Motion Extremities: Present: Normal Gait, No Clubbing, No Cyanosis, Upper Extr. Pulses 2+, Lower Extr. Pulses 2+, No edema. Capillary refill less than 3 seconds. Right groin: No bleeding, hematoma, or bruit at site. Femoral pulse 3+. Distal pulses 2+ bilaterally. Result/EKG - Labs CBC & BMP: 01/24/17 04:45 01/24/17 04:45 Lab Results: I have reviewed the past 24 hour labs Labs: Laboratory Results - last 24 hr 01/24/17 01/24/17 01/24/17 11:18 17:07 19:52 POC Glucose 254 H 203 H 240 H 01/25/17 07:10 POC Glucose 225 H - EKG EKG results: interpreted by me, sinus rhythm Quality Measures - VTE Contraindication to Pharmacological VTE Prophylaxis: High Risk of Bleeding Specialty Discharge - Follow Up or Referrals Follow up with: Dwayne Ospina MD [Physician] - 2 Weeks (Follow up with Dr. Ospina in 2 weeks for groin check with BMP and EKG. ) <ElvinFrancisco East - Last Filed: 01/25/17 12:55> Assessment and Plan (1) Abnormal ECG Status: Acute Current Visit: Yes (2) Coronary artery disease Status: Acute Current Visit: Yes (3) Accelerated hypertension Status: Acute Current Visit: Yes (4) Diabetes mellitus Status: Chronic Current Visit: Yes Qualifiers: Diabetes mellitus type: type 1 Diabetes mellitus complication status: with circulatory complication Diabetes mellitus complication detail: with other circulatory complications Qualified Code(s): E10.59 - Type 1 diabetes mellitus with other circulatory complications (5) Dyslipidemia Status: Chronic Current Visit: Yes (6) Obesity Status: Chronic Current Visit: Yes Qualifiers: Body mass index: BMI 33.0-33.9 Cardiology - PN: Subj Interval history: Patient personally interviewed and examined this morning chart reviewed. I discussed this case with Ritu Botello NP and agree with assessment and note. The patient's blood pressure is still elevated more than we want. Heart rate is fairly stable. He has had no further chest pain other symptomatology. Will make some adjustments in his medications and try to improve his blood pressure control. Have discussed this with the patient he voices understanding. Hopefully will be to discharge the patient soon but his blood pressures need to be better. Exam (Progress Note) - Constitutional Vitals: Period Temp Pulse Resp BP Sys/Faulkner Pulse Ox Last 24 Hr 97.4 F-99.6 F 65-84 12-28 144-193/71-107 95-100 Result/EKG - Labs CBC & BMP: 01/24/17 04:45 01/24/17 04:45 Labs: Laboratory Results - last 24 hr 01/24/17 01/24/17 01/25/17 17:07 19:52 07:10 POC Glucose 203 H 240 H 225 H 01/25/17 11:06 POC Glucose 221 H
[2017-01-25] MEDS: LOSARTAN 50 MG TABLET PO SCH ×2 (08:53→21:39)
[2017-01-25] MEDS: ASPIRIN EC 81 MG TABLET PO SCH (08:53)
[2017-01-25] MEDS: DOCUSATE SODIUM 100 MG CAPSULE PO SCH ×2 (08:53→21:40)
[2017-01-25] MEDS: TICAGRELOR 90 MG TABLET PO SCH ×2 (08:53→21:40)
[2017-01-25] MEDS: METOPROLOL TARTRATE 100 MG TABLET PO SCH ×2 (08:53→21:40)
[2017-01-25] MEDS: ASCORBIC ACID 500 MG TABLET PO SCH (08:53)
[2017-01-25] MEDS: LORATADINE 10 MG TABLET PO SCH (08:54)
[2017-01-25] MEDS: FAMOTIDINE 20 MG TABLET PO SCH (08:54)
[2017-01-25] MEDS ORDERED: amLODIPine 10 MG TABLET PO SCH (09:00)
[2017-01-25] MEDS: cloNIDine 0.1 MG TABLET PO PRN ×3 (21:39→21:59)
[2017-01-26 06:29] LABS: Calcium 8.8 MG/DL (8.5-10.1); Osmolality,Calculated 286.7 MOS/KG (273-304); Potassium 3.7 MMOL/L (3.5-5.1)
[2017-01-26] MEDS: FAMOTIDINE 20 MG TABLET PO SCH (09:37)
[2017-01-26] MEDS: ASCORBIC ACID 500 MG TABLET PO SCH (09:37)
[2017-01-26] MEDS: ASPIRIN EC 81 MG TABLET PO SCH (09:37)
[2017-01-26] MEDS: DOCUSATE SODIUM 100 MG CAPSULE PO SCH ×2 (09:37→21:09)
[2017-01-26] MEDS: LOSARTAN 50 MG TABLET PO SCH ×2 (09:38→21:09)
[2017-01-26] MEDS: LORATADINE 10 MG TABLET PO SCH (09:38)
[2017-01-26] MEDS: TICAGRELOR 90 MG TABLET PO SCH ×2 (09:39→21:09)
[2017-01-26] MEDS: METOPROLOL TARTRATE 100 MG TABLET PO SCH ×2 (09:39→21:09)
[2017-01-26] MEDS: INSULIN LISPRO 100 UNIT/ML SUBCUT SCH ×4 (09:40→21:09)
--- NOTE | 2017-01-26 10:55 | Cardiology Progress Note ---
Assessment and Plan (1) Abnormal ECG Status: Acute Assessment and plan: ECG is abnormal. Certainly it may be ischemic versus issue with hypertension probably LVH. Current Visit: Yes (2) Coronary artery disease Status: Acute Assessment and plan: Patient was sent found to have PDA disease as well as distal circumflex artery stenosis. This disease may be the cause of chest pain with his tachycardia. Successful intervention of the PDA. Is clinically stable. Current Visit: Yes (3) Accelerated hypertension Status: Acute Assessment and plan: His heart rates are better but his blood pressures remain elevated. He states that clonidine has affected his heart rates previously. We will have to monitor this. We will need to adjust his medications though for his poor blood pressure and hopefully not exacerbate his renal dysfunction. Current Visit: Yes (4) Diabetes mellitus Status: Chronic Assessment and plan: Continue him on sliding scale insulin while in the hospital. Current Visit: Yes Qualifiers: Diabetes mellitus type: type 1 Diabetes mellitus complication status: with circulatory complication Diabetes mellitus complication detail: with other circulatory complications Qualified Code(s): E10.59 - Type 1 diabetes mellitus with other circulatory complications (5) Dyslipidemia Status: Chronic Assessment and plan: Lipids are elevated and we have switched him from simvastatin to rosuvastatin. Current Visit: Yes (6) Obesity Status: Chronic Assessment and plan: Needs weight loss. This would benefit him from his multiple medical issues. Are noted he is not motivated though. Current Visit: Yes Qualifiers: Body mass index: BMI 33.0-33.9 Cardiology - PN: Subj Interval history: Patient clinically is doing well without chest pain shortness of breath or other symptomatology. He is up and about the room without limitations or complaints. He has had normal sinus rhythm without dysrhythmias. Some issues is that his creatinine is now 1.9, his blood pressures are not still adequately managed. We will need to adjust his medications for his renal function is well as his hypertension. We may require getting nephrology involved. Exam (Progress Note) - Constitutional Vitals: Period Temp Pulse Resp BP Sys/Faulkner Pulse Ox Last 24 Hr 97 F-101.6 F 62-88 18-28 143-190/74-91 91-97 Exam: General appearance: Obese, no acute distress HEENT exam: normal inspection, atraumatic, Dawna, EOM intact Neck exam: normal inspection no JVD. No carotid bruit. Trachea is in midline Respiratory/lungs exam: clear to auscultation bilaterally good air movement. Cardiovascular exam: regular rate and rhythm, no murmur or gallop or rub. No precordial lift. Chest wall exam: nontender GI/Abdominal exam: normal bowel sounds, soft, nontender, no abdominal bruits or pulsatile masses. Extremeties/musculoskeletal: normal inspection without edema or cyanosis. Neurological exam: alert, oriented X3, no focal deficits Psychiatric exam: normal affect, normal mood. Cognitive function is grossly normal. Skin exam: normal color, warm Result/EKG - Labs CBC & BMP: 01/24/17 04:45 01/26/17 05:30 Lab Results: I have reviewed the past 24 hour labs (Creatinine is more elevated today as is his BUN.) Labs: Laboratory Results - last 24 hr 01/25/17 01/25/17 01/25/17 11:06 15:24 21:32 Sodium Potassium Chloride Carbon Dioxide Anion Gap BUN Creatinine GFR Calculation BUN/Creatinine Ratio Glucose POC Glucose 221 H 274 H 275 H Calculated Osmolality Calcium 01/26/17 01/26/17 05:30 07:50 Sodium 138 Potassium 3.7 Chloride 108 H Carbon Dioxide 22 Anion Gap 11.7 BUN 26 H Creatinine 1.90 H GFR Calculation 55 BUN/Creatinine Ratio 13.00 Glucose 222 H POC Glucose 233 H Calculated Osmolality 286.7 Calcium 8.8 - Impressions Impressions: Telemetry with normal sinus rhythm Quality Measures - VTE Contraindication to Pharmacological VTE Prophylaxis: High Risk of Bleeding Specialty Discharge - Follow Up or Referrals Follow up with: Dwayne Ospina MD [Physician] - 2 Weeks (Follow up with Dr. Ospina in 2 weeks for groin check with BMP and EKG. )
[2017-01-26] MEDS: ROSUVASTATIN 20 MG TABLET PO SCH (12:19)
[2017-01-27 05:49] LABS: Osmolality,Calculated 287.8 MOS/KG (273-304); Potassium 3.9 MMOL/L (3.5-5.1)
[2017-01-27] MEDS: cloNIDine 0.1 MG TABLET PO PRN ×2 (06:22→06:29)
[2017-01-27] MEDS: SODIUM CHLORIDE 0.9% 1,000 ML IV SCH ×2 (08:07→18:23)
[2017-01-27] MEDS: ROSUVASTATIN 20 MG TABLET PO SCH (09:35)
[2017-01-27] MEDS: ASCORBIC ACID 500 MG TABLET PO SCH (09:36)
[2017-01-27] MEDS: METOPROLOL TARTRATE 100 MG TABLET PO SCH ×2 (09:36→21:30)
[2017-01-27] MEDS: TICAGRELOR 90 MG TABLET PO SCH ×2 (09:36→21:30)
[2017-01-27] MEDS: DOCUSATE SODIUM 100 MG CAPSULE PO SCH ×2 (09:36→21:30)
[2017-01-27] MEDS: LORATADINE 10 MG TABLET PO SCH (09:37)
[2017-01-27] MEDS: FAMOTIDINE 20 MG TABLET PO SCH (09:37)
[2017-01-27] MEDS: ASPIRIN EC 81 MG TABLET PO SCH (09:37)
[2017-01-27] MEDS: INSULIN LISPRO 100 UNIT/ML SUBCUT SCH ×4 (09:38→21:30)
--- NOTE | 2017-01-27 10:27 | Cardiology Progress Note ---
Assessment and Plan (1) Abnormal ECG Status: Chronic Assessment and plan: ECG is abnormal. Certainly it may be ischemic versus issue with hypertension probably LVH. Current Visit: Yes (2) Coronary artery disease Status: Acute Assessment and plan: Patient was sent found to have PDA disease as well as distal circumflex artery stenosis. This disease may be the cause of chest pain with his tachycardia. Successful intervention of the PDA. Is clinically stable. Continue to monitor this at this time. Current Visit: Yes (3) Accelerated hypertension Status: Acute Assessment and plan: His blood pressure is better but not where we would like to see them. With his renal dysfunction we have to be careful about dropping his blood pressure too quickly. I suspect this been high at home for quite some time. He has a history of what sounds to be noncompliance. Current Visit: Yes (4) Diabetes mellitus Status: Chronic Assessment and plan: Continue him on sliding scale insulin while in the hospital. Current Visit: Yes Qualifiers: Diabetes mellitus type: type 1 Diabetes mellitus complication status: with circulatory complication Diabetes mellitus complication detail: with other circulatory complications Qualified Code(s): E10.59 - Type 1 diabetes mellitus with other circulatory complications (5) Dyslipidemia Status: Chronic Assessment and plan: Lipids are elevated and we have switched him from simvastatin to rosuvastatin. We will monitor this as an outpatient. Current Visit: Yes (6) Obesity Status: Chronic Assessment and plan: Needs weight loss. This would benefit him from his multiple medical issues. Are noted he is not motivated though. Dietary is discussed this with him. Current Visit: Yes Qualifiers: Body mass index: BMI 33.0-33.9 (7) Acute on chronic renal insufficiency Status: Acute Assessment and plan: He had an element of renal sufficiency on admission that was found after his catheterization. His creatinine unfortunately continues to increase. We will continue hydration ask nephrology to see the patient. Current Visit: Yes (8) NSTEMI (non-ST elevated myocardial infarction) Status: Acute Assessment and plan: This was his presenting issue this is probably exacerbated by his severe accelerated hypertension and tachycardia. This is stable. Current Visit: Yes Cardiology - PN: Subj Interval history: Patient doing well from cardiac standpoint without chest pain shortness of breath. He said no dysrhythmias. States he has a good appetite slept well. His biggest issue is that of continued increased creatinine which may be multifactorial including medications, hypertensive episode, as well as contrast. Because it continues to elevate and his blood pressures are elevated him have to stop some his medication that may be adversely affecting his kidneys. We are going to continue his IV fluid and asked nephrology to see the patient. Exam (Progress Note) - Constitutional Vitals: Period Temp Pulse Resp BP Sys/Faulkner Pulse Ox Last 24 Hr 97.3 F-98.7 F 57-89 18-20 137-190/69-89 90-97 Exam: General appearance: Obese, no acute distress HEENT exam: normal inspection, atraumatic, Dawna, EOM intact Neck exam: normal inspection no JVD. No carotid bruit. Trachea is in midline Respiratory/lungs exam: clear to auscultation bilaterally good air movement. Cardiovascular exam: regular rate and rhythm, no murmur or gallop or rub. No precordial lift. Chest wall exam: nontender GI/Abdominal exam: normal bowel sounds, soft, nontender, no abdominal bruits or pulsatile masses. Extremeties/musculoskeletal: normal inspection without edema or cyanosis. Neurological exam: alert, oriented X3, no focal deficits Psychiatric exam: normal affect, normal mood. Cognitive function is grossly normal. Skin exam: normal color, warm Result/EKG - Labs CBC & BMP: 01/24/17 04:45 01/27/17 04:40 Labs: Laboratory Results - last 24 hr 01/26/17 01/26/17 01/26/17 10:55 15:22 19:58 Sodium Potassium Chloride Carbon Dioxide Anion Gap BUN Creatinine GFR Calculation BUN/Creatinine Ratio Glucose POC Glucose 301 H 313 H 283 H Calculated Osmolality Calcium 01/27/17 01/27/17 04:40 07:24 Sodium 137 Potassium 3.9 Chloride 107 Carbon Dioxide 22 Anion Gap 11.9 BUN 34 H Creatinine 2.10 H GFR Calculation 49 BUN/Creatinine Ratio 16.00 Glucose 231 H POC Glucose 253 H Calculated Osmolality 287.8 Calcium 9.0 - Impressions Impressions: Telemetry with normal sinus rhythm. Quality Measures - VTE Contraindication to Pharmacological VTE Prophylaxis: High Risk of Bleeding Specialty Discharge - Follow Up or Referrals Follow up with: Dwayne Ospina MD [Physician] - 2 Weeks (Follow up with Dr. Ospina in 2 weeks for groin check with BMP and EKG. )
--- NOTE | 2017-01-27 15:49 | Nephrology Consult Note ---
History of Present Illness Chief complaint: Elevated serum creatinine History of present illness: Mr. Jimmy Salter is a 66 year old male with history of hypertension, diabetes and chronic kidney disease followed by Dr. Corona twice a year was admitted for chest pain. He found to have evidence of ST elevated IN. He is status now post stent placement in his PDA. Patient serum creatinine has been trending up to 2.1. Nephrology is been consulted for renal issues. According to the patient, he sees Dr. bustillos twice yearly and his creatinine usually runs about 2. There is no history of tobacco use. There is no history of NSAID use. Of note , patient did receive contrast with his recent cardiac cath. No fevers or chills. No shortness of breath. Home Medications Medication Instructions Recorded Confirmed Type Ascorbic Acid Tab [Vitamin C Tab] 500 mg PO DAILY 02/22/15 01/23/17 History Aspirin [Ecotrin] 81 mg PO DAILY 02/22/15 01/23/17 History Atenolol [Tenormin] 25 mg PO DAILY 02/22/15 01/23/17 History Captopril [Capoten] 50 mg PO TID 02/22/15 01/23/17 History Indapamide [Lozol] 1.25 mg PO DAILY 02/22/15 01/23/17 History Insulin NPH Hum/Reg Insulin Hm 17 unit SUBCUT AC SUPPER 02/22/15 01/23/17 History [NovoLIN 70/30] Insulin NPH Hum/Reg Insulin Hm 50 unit SUBCUT AC BREAKFAST 02/22/15 01/23/17 History [NovoLIN 70/30] Loratadine [Claritin] 10 mg PO DAILY 02/22/15 01/23/17 History NIFEdipine XL TAB [Procardia Xl] 60 mg PO DAILY 02/22/15 01/23/17 History Pantoprazole Tab [Protonix Tab] 40 mg PO DAILY 02/22/15 01/23/17 History Simvastatin [Zocor] 80 mg PO DAILY 02/22/15 01/23/17 History Spironolactone [Aldactone] 25 mg PO DAILY 02/22/15 01/23/17 History Allergies Allergy/AdvReac Type Severity Reaction Status Date / Time No Known Allergies Allergy Verified 02/22/15 07:53 Medical,Surgical,& Family Hx - Medical History Cardio: History of: Hypertension, Cardiovascular Problems (heart murur) Neurology: No history of: Seizures Endocrine: History of: Diabetes Mellitus (IDDM) Rheumatology: History of;: Rheumatoid Arthritis Respiratory: History of: Pneumonia Renal: History of: Renal Failure Genitourinary: History of: Prostate Problems (prostate cancer) Gastrointestinal: History of: GERD, Gastrointestinal Bleed, Hemorrhoids Other: History of: Cancer (prostate cancer) - Surgical History HEENT Surgeries: Surgical HX of: Tonsilectomy & Adenoidectomy Abdominal Surgeries: Surgical HX of: Colonoscopy Reproductive Surgeries: Surgical HX of;: Prostate Surgery - Family History Family History: Reports;: Family Diabetes - Social History Smoking Status: Never smoker Review of Systems Constitutional: no anorexia, no chills Nose, mouth and throat: no hoarseness Cardiovascular: no diaphoresis, no dyspnea, no dyspnea on exertion Exam - Vital Signs Vital signs: Period Temp Pulse Resp BP Sys/Faulkner Pulse Ox Last 24 Hr 97.3 F-98.8 F 57-89 18-20 137-190/69-89 90-97 - General Appearance General appearance: well-developed, well-nourished EENT: ATNC Neck: supple Respiratory: clear Cardiology: regular rate, regular rhythm Gastrointestinal: normoactive bowel sounds, no tenderness Integumentary: no rash, warm and dry Neurologic: alert and oriented x3, CN 3-12 intact Musculoskeletal: no clubbing Psychiatric: mood/affect appropriate, cooperative Results - Labs CBC & BMP: 01/24/17 04:45 01/27/17 04:40 Assessment and Plan (1) Accelerated hypertension Status: Acute Current Visit: Yes (2) Diabetes mellitus Status: Chronic Current Visit: Yes Qualifiers: Diabetes mellitus type: type 1 Diabetes mellitus complication status: with circulatory complication Diabetes mellitus complication detail: with other circulatory complications Qualified Code(s): E10.59 - Type 1 diabetes mellitus with other circulatory complications (3) Obesity Status: Chronic Current Visit: Yes Qualifiers: Body mass index: BMI 33.0-33.9 (4) NSTEMI (non-ST elevated myocardial infarction) Status: Acute Current Visit: Yes (5) Acute on chronic renal insufficiency Status: Chronic Assessment and plan: Appears to be chronic kidney disease. Will repeat BMP in a.m. Renal ultrasound in a.m. Notify Dr. Corona of his patient in a.m. Current Visit: Yes Specialty Discharge - Follow Up or Referrals Follow up with: Dwayne Ospina MD [Physician] - 2 Weeks (Follow up with Dr. Ospina in 2 weeks for groin check with BMP and EKG. )
[2017-01-27] MEDS ORDERED: INSULIN NPH/REGULAR 70/30 100 UNIT/ML SUBCUT ONE (17:19)
[2017-01-27] MEDS: INSULIN NPH/REGULAR 70/30 100 UNIT/ML SUBCUT SCH (17:45)
[2017-01-27] MEDS: MAGNESIUM HYDROXIDE SUSP 30 ML UDCUP PO PRN (17:51)
[2017-01-28] MEDS: SODIUM CHLORIDE 0.9% 1,000 ML IV SCH ×2 (04:19→04:20)
[2017-01-28 05:20] LABS: Calcium 8.9 MG/DL (8.5-10.1); Osmolality,Calculated 283.7 MOS/KG (273-304); Potassium 3.9 MMOL/L (3.5-5.1)
[2017-01-28] MEDS: FAMOTIDINE 20 MG TABLET PO SCH (09:07)
[2017-01-28] MEDS: METOPROLOL TARTRATE 100 MG TABLET PO SCH ×2 (09:09→21:42)
[2017-01-28] MEDS: ASCORBIC ACID 500 MG TABLET PO SCH (09:09)
[2017-01-28] MEDS: ROSUVASTATIN 20 MG TABLET PO SCH (09:10)
[2017-01-28] MEDS: ASPIRIN EC 81 MG TABLET PO SCH (09:10)
[2017-01-28] MEDS: TICAGRELOR 90 MG TABLET PO SCH ×2 (09:11→21:41)
[2017-01-28] MEDS: LORATADINE 10 MG TABLET PO SCH (09:11)
[2017-01-28] MEDS: DOCUSATE SODIUM 100 MG CAPSULE PO SCH ×2 (09:11→21:41)
[2017-01-28] MEDS: INSULIN NPH/REGULAR 70/30 100 UNIT/ML SUBCUT SCH ×2 (09:12→18:17)
--- NOTE | 2017-01-28 09:23 | Ultrasound Report ---
US renal Bilateral Indication: Elevated creatinine. Comparison: 01/08/2011. RENAL ULTRASOUND: Grayscale and color Doppler imaging the kidneys performed. Right kidney measures 129 x 54 x 57 mm. Left kidney measures 120 x 72 x 58 mm. No hydronephrosis, mass, cyst or calcification identified on either side. Color Doppler flow at both renal pérez documented. Impression: Negative ultrasound the kidneys. PROCEDURE INTERPRETED AT [facility] DEPARTMENT OF RADIOLOGY Final Report Signed by: Francisco Grimm M.D.
[2017-01-28] MEDS ORDERED: ALBUTEROL/IPRATROPIUM 3 ML NEB RESP TX PRN (09:31)
[2017-01-28] MEDS ORDERED: FUROSEMIDE 40 MG/4 ML VIAL IV ONE (09:31)
--- NOTE | 2017-01-28 09:32 | Cardiology Progress Note ---
Assessment and Plan - Time spent with patient Time spent with patient: Less than 30 minutes (1) NSTEMI (non-ST elevated myocardial infarction) Status: Acute Assessment and plan: See plan of care listed below. Current Visit: Yes (2) Coronary artery disease Status: Acute Assessment and plan: See plan of care listed below. Current Visit: Yes (3) Accelerated hypertension Status: Acute Assessment and plan: See plan of care listed below. Current Visit: Yes (4) Diabetes mellitus Status: Chronic Assessment and plan: See plan of care listed below. Current Visit: Yes Qualifiers: Diabetes mellitus type: type 1 Diabetes mellitus complication status: with circulatory complication Diabetes mellitus complication detail: with other circulatory complications Qualified Code(s): E10.59 - Type 1 diabetes mellitus with other circulatory complications (5) Dyslipidemia Status: Chronic Assessment and plan: See plan of care listed below. Current Visit: Yes (6) Obesity Status: Chronic Assessment and plan: See plan of care listed below. Current Visit: Yes Qualifiers: Body mass index: BMI 33.0-33.9 (7) Acute on chronic renal insufficiency Status: Chronic Assessment and plan: See plan of care listed below. Current Visit: Yes (8) Dyspnea Status: Acute Assessment and plan: See plan of care listed below. Current Visit: Yes Qualifiers: Dyspnea type: shortness of breath Qualified Code(s): R06.02 - Shortness of breath; R06.00 - Dyspnea, unspecified; R06.01 - Orthopnea Cardiology - PN: Subj Interval history: Bid Manager: Dr. Ospina SUMMARY: Mr. Marquez is a 66 year old male who is brought to the hospital via ambulance with a STEMI alert. He was brought directly to the catheterization lab because of chest pain and abnormal EKG. He has a history of diabetes, hypertension, dyslipidemia. He had recently ran out of 1 of his blood pressure medications and did not get this refilled. His blood pressure was extremely elevated upon admission. EKG revealed what appeared to be regular tachycardia possibly sinus, but cannot rule out atrial flutter. 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 JANUARY 28, 2017 UPDATE: This morning, Mr. Marquez has been noticeably dyspneic. He is on 3 L O2 via NBP. Chest x-ray revealed bilateral pleural effusions most likely related to CHF. There is also noted to be interval progression of bilateral infiltrates, possibly pneumonia. BNP is pending. Although he has been receiving IV fluids to help flush his kidneys, we stopped these and will give him a one-time dose of IV Lasix. He does have some mild pitting edema in his bilateral lower extremities and his abdomen is very tight and distended. He does have some audible wheezing posteriorly upon exam. His artery been given his morning dose of Brilinta but in case a component of his shortness of breath is a side effect of this medicine. Will allow him to receive this evening's dose of Brilinta and change him to Plavix starting tomorrow with a loading dose in the morning. ASSESSMENT/PLAN: 1. NSTEMI- This was his presenting issue, probably exacerbated by his severe accelerated hypertension and tachycardia. Currently stable. EKG was abnormal on admission. 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 He will be continued on DAPT, beta cesar, statin, and ARB. Will continue to monitor renal function. 2. 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 This disease may be the cause of chest pain with his tachycardia. Successful intervention of the PDA. 3. ACCELERATED HYPERTENSION - Blood pressures remain elevated. With his renal dysfunction we have to be careful about dropping his blood pressure too quickly. Suspect this been high at home for quite some time. He has a history of what sounds to be noncompliance. Will continue to monitor and adjust medications accordingly. 4. DIABETES MELLITUS - Continue accuchecks ACHS and sliding scale insulin. 5. DYSLIPIDEMIA - Continue lipid lowering agent. Lipid panel revealed triglycerides 121, cholesterol 164, LDL 107, HDL 39. He was switched from Simvastatin to Rosuvastatin. 6. OBESITY - Chronic. Encouraged lifestyle modifications with diet and exercise. Cardiac rehab has been consulted. Needs weight loss. This would benefit him from his multiple medical issues. Are noted he is not motivated though. Dietary is discussed this with him. 7. ACUTE ON CHRONIC RENAL INSUFFICIENCY - He had an element of renal sufficiency on admission that was found after his catheterization. His creatinine unfortunately continues to increase. Nephrology was consulted and it seems his baseline creatinine is around 2. He is seen by Dr. Corona twice yearly for monitoring. He has been on IV fluids to help flush dye from his kidneys. 8. DYSPNEA - This morning, I was called to see Mr. Marquez as he had been dyspneic this AM. We obtained a stat chest x-ray, stopped his IV fluids, started. Breathing treatments, and give him a one-time dose of IV Lasix. Also obtain a BNP. Will further discuss with Dr. Ospina and await additional recommendations. Exam (Progress Note) - Constitutional Vitals: Period Temp Pulse Resp BP Sys/Faulkner Pulse Ox Last 24 Hr 96.4 F-98.8 F 57-91 16-20 144-186/55-94 91-97 Exam: General: Present: Appears Well, No Apparent Distress. Pleasant and cooperative. Mild tachypnea. HEENT: Present: PERRL, Normocephaly, atraumatic. Mucus Membranes Moist. No jaundice noted. Conjunctiva moist and clear. Neck: Present: Supple Neck, Midline Trachea, No Masses, No Bruit, No tenderness Cardiac: Present: Regular Rate and Rhythm, No Murmur Lungs: Present: Scattered wheezes posteriorly, no rhonchi, mildly tachypneic. Neuro: Present: Awake, alert, and oriented x3. Moves all extremities well without hemiparesis or paralysis. Grossly Intact. Absent: Resting Tremor, Essential Tremor Abdomen: Present: Firm, Active Bowel Sounds, No Masses, Non-Tender, distended. No abdominal bruit or thrill noted. Skin: Present: Clear. Absent: Rash, No skin breakdown. Back: Normal inspection, no vertebral tenderness. Musculoskeletal: Present: No Fluid Collection, No Pain, Normal Range of Motion Extremities: Present: Normal Gait, No Clubbing, No Cyanosis, Upper Extr. Pulses 2+, Lower Extr. Pulses 2+, 1+ pitting edema to BLE. Capillary refill less than 3 seconds. Right groin: No bleeding, hematoma, or bruit at site. Femoral pulse 3+. Distal pulses 2+ bilaterally. Result/EKG - Labs CBC & BMP: 01/24/17 04:45 01/28/17 03:33 Lab Results: I have reviewed the past 24 hour labs Labs: Laboratory Results - last 24 hr 01/27/17 01/27/17 01/27/17 11:30 15:57 20:58 Sodium Potassium Chloride Carbon Dioxide Anion Gap BUN Creatinine GFR Calculation BUN/Creatinine Ratio Glucose POC Glucose 334 H 324 H 294 H Calculated Osmolality Calcium 01/28/17 01/28/17 03:33 07:29 Sodium 138 Potassium 3.9 Chloride 107 Carbon Dioxide 23 Anion Gap 11.9 BUN 35 H Creatinine 2.00 H GFR Calculation 52 BUN/Creatinine Ratio 17.00 Glucose 108 H POC Glucose 176 H Calculated Osmolality 283.7 Calcium 8.9 - EKG EKG results: interpreted by me, sinus rhythm Quality Measures - VTE Contraindication to Pharmacological VTE Prophylaxis: High Risk of Bleeding Specialty Discharge - Follow Up or Referrals Follow up with: Dwayne Ospina MD [Physician] - 02/15/17 9:30 am (Follow up with Dr. Ospina in 2 weeks for groin check with BMP and EKG. )
--- NOTE | 2017-01-28 09:54 | XRay Report ---
Portable chest. Indication: Shortness of breath. Comparison: January 23, 2017. The heart is enlarged. There is calcific plaque present within the aortic knob. There is interval progression of bilateral infiltrates, which are predominantly alveolar. Bilateral pleural effusions are present. Impression: Significant interval worsening. The findings are most likely related to congestive heart failure, however pneumonia could also be present. PROCEDURE INTERPRETED AT [facility] DEPARTMENT OF RADIOLOGY Final Report Signed by: Dr. Yelitza Lobato
[2017-01-28] MEDS: INSULIN LISPRO 100 UNIT/ML SUBCUT SCH ×4 (10:05→21:41)
[2017-01-28 11:37] LABS: Basophils % 0.5 % (0.0-0.8); Eosinophils # 0.1 10*3/uL (0.0-0.87); Eosinophils % 0.9 % (0.00-10.9); Hematocrit 30.5 VOL% (42.0-52.0); Hemoglobin 10.4 GM/DL (14.0-18.0); Immature Granulocytes % 0.5 %; Immature Granulocytes Absolute 0.03 #; Lymphocytes # 0.2 10*3/uL (1.4-4.0); Lymphocytes % 3.3 % (21.2-54.2); Mean Corpuscular HGB Conc 34.1 GM/DL (32-36); Mean Corpuscular Hemoglobin 27 PG (27-34); Mean Corpuscular Volume 80.3 FL (87-102); Monocytes # 0.3 10*3/uL (0.11-0.8); Neutrophils # 5.9 10*3/uL (1.4-7.4); Neutrophils % 89.8 % (38.7-73.9); Platelet Count 228 T/CUMM (130-400); Red Cell Distribution Width 15.7 % (9.3-17.3); White Blood Count 6.6 T/CUMM (4-12)
--- NOTE | 2017-01-28 12:39 | Nephrology Progress Note ---
Nephrology - PN: Subj Interval history: Mr. Marquez is known to me. I have followed him for chronic renal failure. Baseline creatinine was 1.7 in October 2016. His creatinine zack after cardiac cath and stent placement. He denies chest pain today. He had some shortness of breath earlier this morning. He states it has improved Exam (PN)-Nephrology - Vital Signs Vital signs: Period Temp Pulse Resp BP Sys/Faulkner Pulse Ox Last 24 Hr 96.4 F-98.8 F 66-107 16-24 144-186/55-94 90-97 Exam: ENT: Normal Cardiovascular: Regular rate and rhythm. No murmur rub or gallop Lungs: Clear Extremities: 1+ edema - Lab 01/28/17 11:29 01/28/17 03:33 Most recent lab results Calcium 8.9 MG/DL (8.5-10.1) 01/28/17 03:33 Magnesium 2.2 MG/DL (1.8-2.4) 01/23/17 14:47 Assessment and Plan (1) Acute on chronic renal insufficiency Status: Chronic Assessment and plan: 66-year-old man with: * Acute SD. Status post cardiac cath and stent placement * CRF 3. Baseline creatinine 1.7. Creatinine zack to 2.1 yesterday. Improved to 2.0 today * CHF, mild. He received 40 mg Lasix this morning. Symptoms have improved * Pulmonary fibrosis. He has chronic WHITAKER * Diabetes mellitus * Hypertension Current Visit: Yes (2) Pulmonary fibrosis Status: Acute Current Visit: Yes (3) Coronary artery disease Status: Acute Current Visit: Yes (4) NSTEMI (non-ST elevated myocardial infarction) Status: Acute Current Visit: Yes (5) Diabetes mellitus Status: Chronic Current Visit: Yes Qualifiers: Diabetes mellitus type: type 1 Diabetes mellitus complication status: with circulatory complication Diabetes mellitus complication detail: with other circulatory complications Qualified Code(s): E10.59 - Type 1 diabetes mellitus with other circulatory complications Specialty Discharge - Follow Up or Referrals Follow up with: Dwayne Ospina MD [Physician] - 02/15/17 9:30 am (Follow up with Dr. Ospina in 2 weeks for groin check with BMP and EKG. )
[2017-01-28 12:51] LABS: Microcytosis Slight
--- NOTE | 2017-01-28 16:20 | Physician Query Form ---
CLICK EDIT DOCUMENT TO SELECT QUERY ANSWER --> OK --> SIGN Glenna Fierro RN Clinical Enterprise Resource Planning Consultant W) [phone] (f) [phone] [email or web address]: Make your selection(s) from the choices in EACH section by typing an "x" and enter comments in the comment section. Please use your independent medical judgment in providing your response. This request does not imply that any particular answer is desired or expected. CLINICAL INDICATORS: (Providers should not edit this section) Based on documentation of "CHF" "The patient has developed heart failure. Presumably it is from hydration post contrast." BNP of 628. "Will start furosemide 40 mg IV twice daily." Please provide further specificity regarding CHF. ACUITY: ( x) Acute ( ) Chronic ( ) Acute on Chronic ( ) Clinically unable to determine TYPE: ( ) Systolic (HFrEF - heart failure with reduced systolic function/EF) ( x) Diastolic (HFpEF - heart failure with preserved systolic function/EF) ( ) Combined Systolic/Diastolic ( ) Other, please specify: ( x) Clinically unable to determine --also some renal failure ( ) Past Medical History of Systolic CHF ( ) Past Medical History of Diastolic CHF ( x) Clinically unable to determine COMMENTS: PLEASE ALSO DOCUMENT RESPONSE IN PROGRESS NOTES AND/OR DISCHARGE SUMMARY Use of terms such as suspected, likely, or probable (associated with a specific diagnosis that is being evaluated, monitored, or treated as if it exists) are acceptable and can be restated in the discharge summary if not ruled out. MTDD
[2017-01-28] MEDS: FUROSEMIDE 40 MG/4 ML VIAL IV SCH (16:33)
[2017-01-29 05:58] LABS: Basophils % 0.5 % (0.0-0.8); Eosinophils # 0.3 10*3/uL (0.0-0.87); Eosinophils % 6.8 % (0.00-10.9); Hematocrit 29.8 VOL% (42.0-52.0); Hemoglobin 10.1 GM/DL (14.0-18.0); Immature Granulocytes % 0.2 %; Immature Granulocytes Absolute 0.01 #; Lymphocytes # 0.5 10*3/uL (1.4-4.0); Lymphocytes % 11.2 % (21.2-54.2); Mean Corpuscular HGB Conc 33.9 GM/DL (32-36); Mean Corpuscular Hemoglobin 27 PG (27-34); Mean Corpuscular Volume 78.8 FL (87-102); Mean Platelet Volume 11.1 FL (9.6-12.0); Monocytes # 0.4 10*3/uL (0.11-0.8); Neutrophils % 72.3 % (38.7-73.9); Platelet Count 261 T/CUMM (130-400); Red Blood Count 3.78 MC/CUMM (3.8-5.5); Red Cell Distribution Width 15.5 % (9.3-17.3); White Blood Count 4.1 T/CUMM (4-12)
[2017-01-29 06:31] LABS: Calcium 9.3 MG/DL (8.5-10.1); Magnesium 2.3 MG/DL (1.8-2.4); Osmolality,Calculated 294.4 MOS/KG (273-304); Potassium 3.4 MMOL/L (3.5-5.1)
[2017-01-29] MEDS ORDERED: CLOPIDOGREL 300 MG TABLET PO ONE (09:00)
[2017-01-29] MEDS: INSULIN LISPRO 100 UNIT/ML SUBCUT SCH ×4 (09:16→21:04)
[2017-01-29] MEDS: ASPIRIN EC 81 MG TABLET PO SCH (09:24)
[2017-01-29] MEDS: FAMOTIDINE 20 MG TABLET PO SCH (09:24)
[2017-01-29] MEDS: ROSUVASTATIN 20 MG TABLET PO SCH (09:24)
[2017-01-29] MEDS: ASCORBIC ACID 500 MG TABLET PO SCH (09:24)
[2017-01-29] MEDS: DOCUSATE SODIUM 100 MG CAPSULE PO SCH ×2 (09:24→21:04)
[2017-01-29] MEDS: INSULIN NPH/REGULAR 70/30 100 UNIT/ML SUBCUT SCH ×2 (09:25→17:33)
[2017-01-29] MEDS: LORATADINE 10 MG TABLET PO SCH (09:25)
[2017-01-29] MEDS: METOPROLOL TARTRATE 100 MG TABLET PO SCH ×2 (09:25→21:05)
[2017-01-29] MEDS: FUROSEMIDE 40 MG/4 ML VIAL IV SCH (09:26)
--- NOTE | 2017-01-29 10:45 | Cardiology Progress Note ---
Assessment and Plan - Time spent with patient Time spent with patient: Less than 30 minutes (1) NSTEMI (non-ST elevated myocardial infarction) Status: Acute Assessment and plan: See plan of care listed below. Current Visit: Yes (2) Coronary artery disease Status: Acute Assessment and plan: See plan of care listed below. Current Visit: Yes (3) Accelerated hypertension Status: Acute Assessment and plan: See plan of care listed below. Current Visit: Yes (4) Diabetes mellitus Status: Chronic Assessment and plan: See plan of care listed below. Current Visit: Yes Qualifiers: Diabetes mellitus type: type 1 Diabetes mellitus complication status: with circulatory complication Diabetes mellitus complication detail: with other circulatory complications Qualified Code(s): E10.59 - Type 1 diabetes mellitus with other circulatory complications (5) Dyslipidemia Status: Chronic Assessment and plan: See plan of care listed below. Current Visit: Yes (6) Obesity Status: Chronic Assessment and plan: See plan of care listed below. Current Visit: Yes Qualifiers: Body mass index: BMI 33.0-33.9 (7) Acute on chronic renal insufficiency Status: Chronic Assessment and plan: See plan of care listed below. Current Visit: Yes (8) Dyspnea Status: Acute Assessment and plan: See plan of care listed below. Current Visit: Yes Qualifiers: Dyspnea type: shortness of breath Qualified Code(s): R06.02 - Shortness of breath; R06.00 - Dyspnea, unspecified; R06.01 - Orthopnea Cardiology - PN: Subj Interval history: Live Source Operator: Dr. Ospina SUMMARY: Mr. Marquez is a 66 year old male who is brought to the hospital via ambulance with a STEMI alert. He was brought directly to the catheterization lab because of chest pain and abnormal EKG. He has a history of diabetes, hypertension, dyslipidemia. He had recently ran out of 1 of his blood pressure medications and did not get this refilled. His blood pressure was extremely elevated upon admission. EKG revealed what appeared to be regular tachycardia possibly sinus, but cannot rule out atrial flutter. 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 JANUARY 29, 2017 UPDATE: Mr. Marquez is feeling much better today. He was started on diuresis yesterday as well as breathing treatments PRN. He is not requiring any O2 this morning. Lungs sound considerably better, he continues to have some mild BLE edema. He was also changed from Brilinta to Plavix in case a component of his dyspnea was related to a side effect of Brilinta. Will transition IV lasix to PO and continue to monitor. Creatinine up to 2.3 today. Nephrology is following. We appreciate their assistance. ASSESSMENT/PLAN: 1. NSTEMI- This was his presenting issue, probably exacerbated by his severe accelerated hypertension and tachycardia. Currently stable. EKG was abnormal on admission. 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 He will be continued on DAPT, beta cesar, statin, and ARB. Will continue to monitor renal function. 2. 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 This disease may be the cause of chest pain with his tachycardia. Successful intervention of the PDA. 3. ACCELERATED HYPERTENSION - Blood pressures remain elevated. With his renal dysfunction we have to be careful about dropping his blood pressure too quickly. Suspect this been high at home for quite some time. He has a history of what sounds to be noncompliance. Will continue to monitor and adjust medications accordingly. 4. DIABETES MELLITUS - Continue accuchecks ACHS and sliding scale insulin. 5. DYSLIPIDEMIA - Continue lipid lowering agent. Lipid panel revealed triglycerides 121, cholesterol 164, LDL 107, HDL 39. He was switched from Simvastatin to Rosuvastatin. 6. OBESITY - Chronic. Encouraged lifestyle modifications with diet and exercise. Cardiac rehab has been consulted. Needs weight loss. This would benefit him from his multiple medical issues. Are noted he is not motivated though. Dietary is discussed this with him. 7. ACUTE ON CHRONIC RENAL INSUFFICIENCY - He had an element of renal sufficiency on admission that was found after his catheterization. His creatinine unfortunately continues to increase. Nephrology was consulted and it seems his baseline creatinine is around 2. He is seen by Dr. Corona twice yearly for monitoring. 8. DYSPNEA - BNP 628 yesterday, down to 444 today. CXR yesterday suggested a component of CHF. He has preserved EF. He is much improved today. We will continue offloading with diuretics and continue to monitor. Will repeat chest xray in AM. Will further discuss with Dr. Ospina and await additional recommendations. Exam (Progress Note) - Constitutional Vitals: Period Temp Pulse Resp BP Sys/Faulkner Pulse Ox Last 24 Hr 97.6 F-98.9 F 59-82 18-20 135-181/76-84 90-96 Exam: General: Present: Appears Well, No Apparent Distress. Pleasant and cooperative. Mild tachypnea. HEENT: Present: PERRL, Normocephaly, atraumatic. Mucus Membranes Moist. No jaundice noted. Conjunctiva moist and clear. Neck: Present: Supple Neck, Midline Trachea, No Masses, No Bruit, No tenderness Cardiac: Present: Regular Rate and Rhythm, No Murmur Lungs: Present: Diminished in bilateral bases posteriorly, otherwise clear to auscultation, no rhonchi, wheezes. Neuro: Present: Awake, alert, and oriented x3. Moves all extremities well without hemiparesis or paralysis. Grossly Intact. Absent: Resting Tremor, Essential Tremor Abdomen: Present: Firm, Active Bowel Sounds, No Masses, Non-Tender, distended. No abdominal bruit or thrill noted. Skin: Present: Clear. Absent: Rash, No skin breakdown. Back: Normal inspection, no vertebral tenderness. Musculoskeletal: Present: No Fluid Collection, No Pain, Normal Range of Motion Extremities: Present: Normal Gait, No Clubbing, No Cyanosis, Upper Extr. Pulses 2+, Lower Extr. Pulses 2+, 1+ pitting edema to BLE. Capillary refill less than 3 seconds. Right groin: No bleeding, hematoma, or bruit at site. Femoral pulse 3+. Distal pulses 2+ bilaterally. Result/EKG - Labs CBC & BMP: 01/29/17 05:27 01/29/17 05:27 Lab Results: I have reviewed the past 24 hour labs Labs: Laboratory Results - last 24 hr 01/28/17 01/28/17 01/28/17 10:40 11:29 11:39 WBC 6.6 RBC 3.80 Hgb 10.4 L Hct 30.5 L MCV 80.3 L MCH 27 MCHC 34.1 RDW 15.7 Plt Count 228 MPV 11.0 Neut % (Auto) 89.8 H Lymph % (Auto) 3.3 L Stevens % (Auto) 5.0 Eos % (Auto) 0.9 Baso % (Auto) 0.5 Neut # (Auto) 5.9 Lymph # (Auto) 0.2 L Stevens # (Auto) 0.3 Eos # (Auto) 0.1 Baso # (Auto) 0.0 Immature Gran % 0.5 Nucleated RBC % 0.0 Immature Gran # 0.03 Nucleated RBCs # 0.00 Immature Plt Fraction 0.0 Microcytosis Slight Sodium Potassium Chloride Carbon Dioxide Anion Gap BUN Creatinine GFR Calculation BUN/Creatinine Ratio Glucose POC Glucose 251 H Calculated Osmolality Calcium Magnesium B-Natriuretic Peptide 628 H 01/28/17 01/28/17 01/29/17 17:35 19:38 05:27 WBC 4.1 D RBC 3.78 L Hgb 10.1 L Hct 29.8 L MCV 78.8 L MCH 27 MCHC 33.9 RDW 15.5 Plt Count 261 MPV 11.1 Neut % (Auto) 72.3 Lymph % (Auto) 11.2 L Stevens % (Auto) 9.0 Eos % (Auto) 6.8 Baso % (Auto) 0.5 Neut # (Auto) 3.0 Lymph # (Auto) 0.5 L Stevens # (Auto) 0.4 Eos # (Auto) 0.3 Baso # (Auto) 0.0 Immature Gran % 0.2 Nucleated RBC % 0.0 Immature Gran # 0.01 Nucleated RBCs # 0.00 Immature Plt Fraction 0.0 Microcytosis Sodium Potassium Chloride Carbon Dioxide Anion Gap BUN Creatinine GFR Calculation BUN/Creatinine Ratio Glucose POC Glucose 336 H 299 H Calculated Osmolality Calcium Magnesium B-Natriuretic Peptide 01/29/17 01/29/17 01/29/17 05:27 05:27 07:50 WBC RBC Hgb Hct MCV MCH MCHC RDW Plt Count MPV Neut % (Auto) Lymph % (Auto) Stevens % (Auto) Eos % (Auto) Baso % (Auto) Neut # (Auto) Lymph # (Auto) Stevens # (Auto) Eos # (Auto) Baso # (Auto) Immature Gran % Nucleated RBC % Immature Gran # Nucleated RBCs # Immature Plt Fraction Microcytosis Sodium 140 Potassium 3.4 L Chloride 107 Carbon Dioxide 25 Anion Gap 11.4 BUN 39 H Creatinine 2.30 H GFR Calculation 44 BUN/Creatinine Ratio 16.00 Glucose 216 H POC Glucose 207 H Calculated Osmolality 294.4 Calcium 9.3 Magnesium 2.3 B-Natriuretic Peptide 444 H - EKG EKG results: interpreted by me, sinus rhythm Quality Measures - VTE Contraindication to Pharmacological VTE Prophylaxis: High Risk of Bleeding Specialty Discharge - Follow Up or Referrals Follow up with: Dwayne Ospina MD [Physician] - 02/15/17 9:30 am (Follow up with Dr. Ospina in 2 weeks for groin check with BMP and EKG. )
[2017-01-29] MEDS: MINOXIDIL 2.5 MG TABLET PO SCH ×2 (13:09→21:04)
[2017-01-29] MEDS ORDERED: POTASSIUM CHLORIDE 20 MEQ PACK PO ONE (14:26)
[2017-01-29] MEDS: FUROSEMIDE 40 MG TABLET PO SCH (17:32)
--- NOTE | 2017-01-29 18:18 | Nephrology Progress Note ---
Nephrology - PN: Subj Interval history: He denies shortness of breath or chest pain. Exam (PN)-Nephrology - Vital Signs Vital signs: Period Temp Pulse Resp BP Sys/Faulkner Pulse Ox Last 24 Hr 97 F-98.9 F 54-82 18-20 126-181/63-84 94-96 Exam: ENT: Normal Cardiovascular: Regular rate and rhythm. No murmur rub or gallop Lungs: Clear Extremities: 1+ edema - Lab 01/29/17 05:27 01/29/17 05:27 Most recent lab results Calcium 9.3 MG/DL (8.5-10.1) 01/29/17 05:27 Magnesium 2.3 MG/DL (1.8-2.4) 01/29/17 05:27 Assessment and Plan (1) Acute on chronic renal insufficiency Status: Chronic Assessment and plan: 66-year-old man with: * Acute LA. Status post cardiac cath and stent placement * CRF 3. Baseline creatinine 1.7. Creatinine higher today. * CHF, mild. Improved with diuresis. Lasix has been changed to p.o. * Pulmonary fibrosis. He has chronic WHITAKER * Diabetes mellitus * Hypertension Current Visit: Yes (2) Pulmonary fibrosis Status: Acute Current Visit: Yes (3) Coronary artery disease Status: Acute Current Visit: Yes (4) NSTEMI (non-ST elevated myocardial infarction) Status: Acute Current Visit: Yes (5) Diabetes mellitus Status: Chronic Current Visit: Yes Qualifiers: Diabetes mellitus type: type 1 Diabetes mellitus complication status: with circulatory complication Diabetes mellitus complication detail: with other circulatory complications Qualified Code(s): E10.59 - Type 1 diabetes mellitus with other circulatory complications Specialty Discharge - Follow Up or Referrals Follow up with: Dwayne Ospina MD [Physician] - 02/15/17 9:30 am (Follow up with Dr. Ospina in 2 weeks for groin check with BMP and EKG. )
[2017-01-30 05:28] LABS: Basophils % 0.9 % (0.0-0.8); Eosinophils # 0.3 10*3/uL (0.0-0.87); Eosinophils % 9.2 % (0.00-10.9); Hemoglobin 9.8 GM/DL (14.0-18.0); Immature Granulocytes % 1.2 %; Immature Granulocytes Absolute 0.04 #; Lymphocytes # 0.5 10*3/uL (1.4-4.0); Lymphocytes % 15.7 % (21.2-54.2); Mean Corpuscular HGB Conc 33.8 GM/DL (32-36); Mean Corpuscular Hemoglobin 27 PG (27-34); Mean Corpuscular Volume 79.5 FL (87-102); Mean Platelet Volume 10.9 FL (9.6-12.0); Monocytes # 0.3 10*3/uL (0.11-0.8); Monocytes % 10.1 % (1.7-12.7); Neutrophils # 2.1 10*3/uL (1.4-7.4); Neutrophils % 62.9 % (38.7-73.9); Platelet Count 268 T/CUMM (130-400); Red Blood Count 3.65 MC/CUMM (3.8-5.5); Red Cell Distribution Width 15.3 % (9.3-17.3); White Blood Count 3.4 T/CUMM (4-12)
[2017-01-30 06:07] LABS: Calcium 9.4 MG/DL (8.5-10.1); Magnesium 2.2 MG/DL (1.8-2.4); Osmolality,Calculated 289.3 MOS/KG (273-304); Potassium 3.5 MMOL/L (3.5-5.1)
--- NOTE | 2017-01-30 08:43 | XRay Report ---
XR chest 2V Indication: SOB Comparison: Chest x-ray dated January 28, 2017 Technique: Frontal and lateral views of the chest. Findings: Continued mild cardiomegaly. Mildly improved bilateral mid and lower lung consolidation with some residual remaining. Small bilateral pleural fluid. Visualized osseous and surrounding soft tissue structures appear grossly unchanged. IMPRESSION: As above. PROCEDURE INTERPRETED AT [facility] DEPARTMENT OF RADIOLOGY Final Report Signed by: Dr Yonatan Rodriguez
[2017-01-30] MEDS ORDERED: CLOPIDOGREL 75 MG TABLET PO SCH (09:00)
[2017-01-30] MEDS: FUROSEMIDE 40 MG TABLET PO SCH (09:09)
[2017-01-30] MEDS: ROSUVASTATIN 20 MG TABLET PO SCH (09:10)
[2017-01-30] MEDS: FAMOTIDINE 20 MG TABLET PO SCH (09:12)
[2017-01-30] MEDS: MINOXIDIL 2.5 MG TABLET PO SCH (09:12)
[2017-01-30] MEDS: ASCORBIC ACID 500 MG TABLET PO SCH (09:13)
[2017-01-30] MEDS: LORATADINE 10 MG TABLET PO SCH (09:14)
[2017-01-30] MEDS: METOPROLOL TARTRATE 100 MG TABLET PO SCH (09:14)
[2017-01-30] MEDS: DOCUSATE SODIUM 100 MG CAPSULE PO SCH (09:15)
[2017-01-30] MEDS: MAGNESIUM HYDROXIDE SUSP 30 ML UDCUP PO PRN (09:16)
[2017-01-30] MEDS: INSULIN NPH/REGULAR 70/30 100 UNIT/ML SUBCUT SCH (09:16)
[2017-01-30] MEDS: INSULIN LISPRO 100 UNIT/ML SUBCUT SCH ×2 (09:18→12:34)
[2017-01-30] MEDS: ASPIRIN EC 81 MG TABLET PO SCH (09:38)
--- NOTE | 2017-01-30 11:52 | Discharge Summary ---
Hospital Course - Hospital Course Hospital Course: Mr. Marquez is a 66 year old male who is brought to the hospital via ambulance with a STEMI alert. He was brought directly to the catheterization lab because of chest pain and abnormal EKG. He has a history of diabetes, hypertension, dyslipidemia. He had recently ran out of 1 of his blood pressure medications and did not get this refilled. His blood pressure was extremely elevated upon admission. EKG revealed what appeared to be regular tachycardia possibly sinus, and was felt to have sustained an NSTEMI. Patient was found to have PDA disease as well as distal circumflex artery stenosis and received successful intervention of the PDA. He had recurring issues with accelerated hypertension and renal insufficiency and subsequently required longer hospitalization. Nephrology was consulted and it seems his baseline creatinine is around 2. We appreciate their assistance. He had some post-catheterization dyspnea and pulmonary edema, likely due to hydration. He was diuresed and has done well. He was also transitioned from Brilinta to Plavix as a precaution in case a component of his dyspnea was related to side effects of Brilinta. Echocardiogram revealed EF 60%, Mild MR, mild MA, moderate to severe pulmonary hypertension. ROBERT/ARB has been avoided due to chronic renal insufficiency. His right groin cath site looks good. It is without bleeding, hematoma, or bruit. Femoral pulse is 3+. Distal pulses are present and palpable bilaterally. At this time, he has met maximum benefit from hospitalization and will be discharged home in stable condition. He will follow up with Dr. Ospina in 2-3 weeks with CBC, CMP and follow up with Dr. Jacob Corona in 3- 4 weeks. - Time spent with patient Time with patient DS: Greater than 30 minutes Diagnosis - Discharge Diagnosis (1) NSTEMI (non-ST elevated myocardial infarction) Status: Resolved (2) Coronary artery disease Status: Chronic (3) Accelerated hypertension Status: Resolved (4) Diabetes mellitus Status: Chronic (5) Dyslipidemia Status: Chronic (6) Obesity Status: Chronic (7) Acute on chronic renal insufficiency Status: Chronic (8) Dyspnea Status: Resolved (9) Hypertension Status: Chronic Specialty Discharge - Follow Up or Referrals Follow up with: Dwayne Ospina MD [Physician] - 02/15/17 9:30 am (Follow up with Dr. Ospina in 2 weeks for groin check with CBC, CMP and EKG. ) Discharge Plan - Discharge Data Disposition: Disch To Home/Self Care Condition at Discharge: Stable Discharge Diet: diabetic diet, heart healthy Activity: resume usual activities as tolerated, no lifting (No heavy lifting for the next 2-3 days. ) Hygiene: no restrictions Weight Bearing at Discharge: full weight bearing Driving: no restrictions Contact your physician if you experience:: fever over 101, Difficulty voiding, Redness or swelling, Nausea/Vomiting, Shortness of breath, Bleeding, pain uncontrolled by pain medications - Discharge Medications New Furosemide Tab [Lasix Tab] 40 mg PO BID DIURETIC #60 tablet Metoprolol Tartrate Tab [Lopressor Tab] 100 mg PO BID #60 tablet Minoxidil [Loniten] 5 mg PO BID #60 tablet Nitroglycerin Sl Tab [Nitrostat] 0.4 mg SL Q5M PRN #1 bottle PRN Reason: Chest Pain Rosuvastatin [Crestor] 40 mg PO DAILY #30 tablet cloNIDine TAB [Catapres Tab] 0.2 mg PO TID #90 tablet hydrALAZINE TAB [Apresoline Tab] 100 mg PO TID #90 tablet Clopidogrel [Plavix] 75 mg PO DAILY #30 tablet NIFEdipine XL TAB [Procardia Xl] 90 mg PO DAILY #30 tablet Continue Insulin NPH Hum/Reg Insulin Hm [NovoLIN 70/30] 17 unit SUBCUT AC SUPPER Insulin NPH Hum/Reg Insulin Hm [NovoLIN 70/30] 50 unit SUBCUT AC BREAKFAST Aspirin [Ecotrin] 81 mg PO DAILY Ascorbic Acid Tab [Vitamin C Tab] 500 mg PO DAILY Pantoprazole Tab [Protonix Tab] 40 mg PO DAILY Insulin Degludec [Tresiba Flextouch U-200] 50 units SUBCUT ONCE Insulin Aspart [NovoLOG FlexPen] 15 unit SUBCUT Loratadine [Claritin] 10 mg PO DAILY #15 tablet Discontinued Simvastatin [Zocor] 80 mg PO DAILY Indapamide [Lozol] 1.25 mg PO DAILY Atenolol [Tenormin] 25 mg PO DAILY Spironolactone [Aldactone] 25 mg PO DAILY NIFEdipine XL TAB [Procardia Xl] 60 mg PO DAILY Captopril [Capoten] 50 mg PO TID No Action Insulin Degludec [Tresiba Flextouch U-200] 200 unit SQ - Follow Up or Referral Follow Up: Dwayne Ospina MD [Physician] - 02/15/17 9:30 am (Follow up with Dr. Ospina in 2 weeks for groin check with BMP and EKG. ) - Forms/Instructions Instructions: Myocardial Infarction (GEN), Coronary Artery Disease (GEN), Left Heart Catheterization (DC), Heart Healthy Diet (GEN) Exam - Constitutional Vitals: Period Temp Pulse Resp BP Sys/Faulkner Pulse Ox Last 24 Hr 97 F-98.9 F 54-88 18-20 117-152/63-73 92-97 Exam: General: Present: Appears Well, No Apparent Distress. Pleasant and cooperative. Mild tachypnea. HEENT: Present: PERRL, Normocephaly, atraumatic. Mucus Membranes Moist. No jaundice noted. Conjunctiva moist and clear. Neck: Present: Supple Neck, Midline Trachea, No Masses, No Bruit, No tenderness Cardiac: Present: Regular Rate and Rhythm, No Murmur Lungs: Present: Diminished in bilateral bases posteriorly, otherwise clear to auscultation, no rhonchi, wheezes. Neuro: Present: Awake, alert, and oriented x3. Moves all extremities well without hemiparesis or paralysis. Grossly Intact. Absent: Resting Tremor, Essential Tremor Abdomen: Present: Firm, Active Bowel Sounds, No Masses, Non-Tender, distended. No abdominal bruit or thrill noted. Skin: Present: Clear. Absent: Rash, No skin breakdown. Back: Normal inspection, no vertebral tenderness. Musculoskeletal: Present: No Fluid Collection, No Pain, Normal Range of Motion Extremities: Present: Normal Gait, No Clubbing, No Cyanosis, Upper Extr. Pulses 2+, Lower Extr. Pulses 2+, 1+ pitting edema to BLE. Capillary refill less than 3 seconds. Right groin: No bleeding, hematoma, or bruit at site. Femoral pulse 3+. Distal pulses 2+ bilaterally. Discharge Results Procedures and tests throughout hospitalization: Pending Orders 01/31/17 04:00 Basic Metabolic Panel w/Mg IN AM Comp Blood Count Auto Diff IN AM Left heart catheterization 01/23/17: Left ventricular angiogram: Left ventricle is normal size and overall probably normal systolic function at least ejection fraction of 55% and what appears to probably be left ventricular hypertrophy. There was no significant mitral valve regurgitation. The aortic valve appeared to be a tricuspid structure. Left main coronary artery angiogram: Left main coronary is large and long bifurcating LAD and circumflex arteries. It is without stenosis. Left anterior descending artery angiogram: The LAD proximally is a medium large size vessel. The first diagonal branch is small medium caliber but long vessel. Other diagonals are small-caliber. The LAD has probably some calcification luminal irregularities but less than 20% stenosis. MAURISIO-3 flow was present. LAD does extend to the posterior apical region. Circumflex artery angiogram: Circumflex artery and its very proximal portion at the takeoff from the left main is medium to large in size. The first obtuse marginal branch has a very proximal takeoff is a medium large size vessel, large area of anterior lateral myocardium. Beyond this the circumflex continues giving rise to some small obtuse marginal branches and very distally very small posterior ventricular branches. The very distal portion of the circumflex artery that is small has maybe 70-80% stenosis. This is a very tortuous area and vessels are small. Flow though appears to be at least MAURISIO II or MAURISIO-3. Right coronary artery angiogram: The RCA is a medium caliber vessel. It is dominant. PDA is somewhat of a small caliber vessel with proximal stenosis of 90% with MAURISIO II flow. There is diffuse luminal irregularities throughout the RCA proper with some calcification. The posterior lateral branches are small medium caliber vessels with a small AV node artery distally. PCI of right PDA: This was carried out as described above with the 90+% stenosis with MAURISIO-3 flow dilated 0% residual stenosis and MAURISIO-3 flow. Right common femoral artery angiogram: Right comfort is widely patent successfully initial hemostasis. Impression: 1. Left ventricle is normal size and systolic function ejection fraction probably at least 55% without segmental wall motion abnormalities. 2. LVEDP is normal at 11 mmHg. 3. There is no significant gradient across the aortic valve. 4. No significant mitral valve regurgitation is demonstrated 5. RCA with diffuse luminal irregularities and dominant. PDA had 90+% stenosis with MAURISIO II flow. 6. Successful stent placement to the PDA dilated from 90-0% residual stenosis and from MAURISIO II to MAURISIO III flow. 7. Left main coronary is widely patent without stenosis or disease. 8. Circumflex artery is nondominant luminal irregularities with a 78% distal stenosis and a very small vessel that is tortuous. 9. LAD widely patent luminal irregularities and some calcification. 10. Successful Angio-Seal of the right common femoral artery. Discussion: This patient's presenting ECG certainly appears to be potentially ischemic but only if he lays may be indicate ST segment elevation infarction. Much of his symptomatology and EKG findings I think is secondary to his tachycardia and severe hypertensive episode. We will follow the patient up post intervention catheterization. He should be aggressively treated for his medical issues. Certainly the fact that he ran out of his his antihypertensive medications is probably contributed to this event. Labs on day of discharge: Labs from last 24 hours 01/30/17 01/30/17 01/30/17 11:36 07:34 04:52 WBC RBC Hgb Hct MCV MCH MCHC RDW Plt Count MPV Neut % (Auto) Lymph % (Auto) Ada % (Auto) Eos % (Auto) Baso % (Auto) Neut # (Auto) Lymph # (Auto) Ada # (Auto) Eos # (Auto) Baso # (Auto) Immature Gran % Nucleated RBC % Immature Gran # Nucleated RBCs # Immature Plt Fraction Sodium 141 Potassium 3.5 Chloride 107 Carbon Dioxide 24 Anion Gap 13.5 BUN 39 H Creatinine 2.20 H GFR Calculation 46 BUN/Creatinine Ratio 17.00 Glucose 100 POC Glucose 221 H 121 H Calculated Osmolality 289.3 Calcium 9.4 Magnesium 2.2 B-Natriuretic Peptide 01/30/17 01/30/17 01/29/17 04:52 04:52 19:43 WBC 3.4 L RBC 3.65 L Hgb 9.8 L Hct 29.0 L MCV 79.5 L MCH 27 MCHC 33.8 RDW 15.3 Plt Count 268 MPV 10.9 Neut % (Auto) 62.9 Lymph % (Auto) 15.7 L Ada % (Auto) 10.1 Eos % (Auto) 9.2 Baso % (Auto) 0.9 H Neut # (Auto) 2.1 Lymph # (Auto) 0.5 L Ada # (Auto) 0.3 Eos # (Auto) 0.3 Baso # (Auto) 0.0 Immature Gran % 1.2 Nucleated RBC % 0.0 Immature Gran # 0.04 Nucleated RBCs # 0.00 Immature Plt Fraction 0.0 Sodium Potassium Chloride Carbon Dioxide Anion Gap BUN Creatinine GFR Calculation BUN/Creatinine Ratio Glucose POC Glucose 332 H Calculated Osmolality Calcium Magnesium B-Natriuretic Peptide 200 H 01/29/17 01/29/17 16:52 11:48 WBC RBC Hgb Hct MCV MCH MCHC RDW Plt Count MPV Neut % (Auto) Lymph % (Auto) Ada % (Auto) Eos % (Auto) Baso % (Auto) Neut # (Auto) Lymph # (Auto) Ada # (Auto) Eos # (Auto) Baso # (Auto) Immature Gran % Nucleated RBC % Immature Gran # Nucleated RBCs # Immature Plt Fraction Sodium Potassium Chloride Carbon Dioxide Anion Gap BUN Creatinine GFR Calculation BUN/Creatinine Ratio Glucose POC Glucose 289 H 303 H Calculated Osmolality Calcium Magnesium B-Natriuretic Peptide DS: Provider Date of admission: 01/23/17 13:15 Primary care physician: . No PCP Attending physician on admission: Violeta Martinez Consults: 01/23/17 13:15 Consult to Cardiac Rehabilitation [CONS] Routine Reason for Cardiac Rehabilitation: Risk Factor Modification 01/27/17 07:10 Consult to Physician [CONS] Routine Comment: Acute on chronic renal sufficiency Consulting Provider: Consult to Specialist Group: Nephrology When should Consulting Provider be notified: Now Person Notified: Dr. Mcclelland Date Notified: 01/27/17 Time Notified: 08:30 Consult Notification Comment: physician paged and notified Discharging clinician: CARON Smith Expected date of discharge: 01/30/17
[2017-01-30 11:55] VITALS: BP 131/63
--- NOTE | 2017-01-30 17:23 | Nephrology Progress Note ---
Nephrology - PN: Subj Interval history: He denies chest pain or shortness of breath. Exam (PN)-Nephrology - Vital Signs Vital signs: Period Temp Pulse Resp BP Sys/Faulkner Pulse Ox Last 24 Hr 97.2 F-98.9 F 61-88 18-20 117-152/63-73 92-98 Exam: ENT: Normal Cardiovascular: Regular rate and rhythm. No murmur rub or gallop Lungs: Clear Extremities: 1+ edema - Lab 01/30/17 04:52 01/30/17 04:52 Most recent lab results Calcium 9.4 MG/DL (8.5-10.1) 01/30/17 04:52 Magnesium 2.2 MG/DL (1.8-2.4) 01/30/17 04:52 Assessment and Plan (1) Acute on chronic renal insufficiency Status: Chronic Assessment and plan: 66-year-old man with: * Acute [facility]. Status post cardiac cath and stent placement * CRF 3. Baseline creatinine 1.7. Creatinine slightly better today. He was instructed to monitor his weight at home. Outpatient follow-up scheduled * CHF, mild. Improved with diuresis. Lasix has been changed to p.o. * Pulmonary fibrosis. He has chronic WHITAKER * Diabetes mellitus * Hypertension (2) Pulmonary fibrosis Status: Acute (3) Coronary artery disease Status: Chronic (4) NSTEMI (non-ST elevated myocardial infarction) Status: Resolved (5) Diabetes mellitus Status: Chronic Qualifiers: Diabetes mellitus type: type 1 Diabetes mellitus complication status: with circulatory complication Diabetes mellitus complication detail: with other circulatory complications Qualified Code(s): E10.59 - Type 1 diabetes mellitus with other circulatory complications Specialty Discharge - Follow Up or Referrals Follow up with: Dwayne Ospina MD [Physician] - 02/15/17 9:30 am (Follow up with Dr. Ospina in 2 weeks for groin check with CBC, CMP and EKG. )
== END 2017-01-30 15:08 | disposition home or self-care (01) | DRG 246 ==
LOC: N.CL 11:42 → N.CC 13:15 → N.TELEN 01-25 17:16
PROVIDERS: ADMIT Internal Medicine Cardiovascular Disease; ATTEND Internal Medicine Cardiovascular Disease
PROC: CLCCHCL (ICD-10-PCS; 2017-01-23 13:15)

== ENCOUNTER 2017-02-26 17:18 | Inpatient (IN) ==
[2017-02-26] MEDS ORDERED: ASPIRIN 325 MG TABLET PO STA (17:39)
[2017-02-26] MEDS ORDERED: ASPIRIN 325 MG TABLET ONE (17:42)
--- NOTE | 2017-02-26 17:43 | Emergency Department Note ---
Arrival - Arrival Chief Complaint: Chest Pain Stated Complaint: PRESSURE IN CHEST ED Nursing Triage Note: c/o pressure in chest onset this am. denies n/v/d. +sob Mode of Arrival: Wheelchair Limitations: No Limitations Source: Patient Time Seen by Provider: 02/26/17 17:39 - History of Present Illness HPI Narrative: This 66-year-old black male presents with several hours of central chest tightness not associated with shortness of breath, nausea, vomiting, or diarrhea. He does complain of abdominal distention and constipation. The patient does not have a significant history for coronary artery disease and does take an aspirin daily. Currently at rest in bed he appears anxious but in no acute medical distress. Onset (ago): hour(s) (Patient presents several hours post onset) Allergies/Adverse Reactions: Allergies Allergy/AdvReac Type Severity Reaction Status Date / Time No Known Allergies Allergy Verified 02/22/15 07:53 Home Medications: Home Medications Medication Instructions Recorded Confirmed Type Ascorbic Acid Tab [Vitamin C Tab] 500 mg PO DAILY 02/22/15 02/02/17 History Aspirin [Ecotrin] 81 mg PO DAILY 02/22/15 02/02/17 History Pantoprazole Tab [Protonix Tab] 40 mg PO DAILY 02/22/15 02/02/17 History Insulin Degludec [Tresiba 50 units SUBCUT QAM 01/27/17 02/02/17 History Flextouch U-200] Clopidogrel [Plavix] 75 mg PO DAILY #30 tablet 01/30/17 02/02/17 Rx Furosemide Tab [Lasix Tab] 40 mg PO BID DIURETIC #60 tablet 01/30/17 02/02/17 Rx Loratadine [Claritin] 10 mg PO DAILY #15 tablet 01/30/17 02/02/17 Rx Metoprolol Tartrate Tab [Lopressor 100 mg PO BID #60 tablet 01/30/17 02/02/17 Rx Tab] Minoxidil [Loniten] 5 mg PO BID #60 tablet 01/30/17 02/02/17 Rx NIFEdipine XL TAB [Procardia Xl] 90 mg PO DAILY #30 tablet 01/30/17 02/02/17 Rx Nitroglycerin Sl Tab [Nitrostat] 0.4 mg SL Q5M PRN #1 bottle 01/30/17 02/02/17 Rx Rosuvastatin [Crestor] 40 mg PO DAILY #30 tablet 01/30/17 02/02/17 Rx cloNIDine TAB [Catapres Tab] 0.2 mg PO TID #90 tablet 01/30/17 02/02/17 Rx hydrALAZINE TAB [Apresoline Tab] 100 mg PO TID #90 tablet 01/30/17 02/02/17 Rx Insulin Aspart [NovoLOG] 17 units SUBCUT TIDAC 02/03/17 02/03/17 History Apixaban [Eliquis] 2.5 mg PO BID #60 tablet 02/06/17 Rx Sotalol [Betapace] 40 mg PO BID #60 tablet 02/06/17 Rx Review of System - Review of System 12 point system: reviewed and no additional remarkable complaints except as stated - Review of System Respiratory: Present: as per HPI Cardiovascular: Present: as per HPI Gastrointestinal: Present: as per HPI Medical,Surgical,& Family Hx - Medical History Cardio: History of: Hypertension, Cardiovascular Problems (heart murur) Neurology: No history of: Seizures Endocrine: History of: Diabetes Mellitus (IDDM) Rheumatology: History of;: Rheumatoid Arthritis Respiratory: History of: Pneumonia Renal: History of: Renal Failure Genitourinary: History of: Prostate Problems (prostate cancer) Gastrointestinal: History of: GERD, Gastrointestinal Bleed, Hemorrhoids Other: History of: Cancer (prostate cancer) - Surgical History HEENT Surgeries: Surgical HX of: Tonsilectomy & Adenoidectomy Abdominal Surgeries: Surgical HX of: Colonoscopy Reproductive Surgeries: Surgical HX of;: Prostate Surgery - Family History Family History: Reports;: Family Diabetes - Social History Smoking Status: Never smoker Frequency of Alcohol Use: None Type of Drug Use: None Exam Physical Examination: GENERAL: Obese black male in no acute distress. HEENT: Normocephalic. No trauma. Moist mucous membranes. EOMI. PERRLA. ENT NML NECK: Supple. No adenopathy. CARDIAC: Regular. No murmurs. Heart rate 73 CHEST: Clear to auscultation. No respiratory distress. O2 sat 95%. Some costosternal junction pain to palpation. ABDOMEN: Firm with midepigastric tenderness and hypoactive bowel sounds. EXTREMITIES: No trauma. Normal ROM. No pedal edema. SKIN: No diaphoresis. No rash. NEURO: Alert. Neuro intact. No focal deficits. Vital Signs: Vital Signs Temperature 97.8 F 09/12/17 17:25 Pulse Rate 66 02/26/17 18:30 Respiratory Rate 18 02/26/17 18:30 Blood Pressure 138/67 02/26/17 18:30 O2 Sat by Pulse Oximetry 96 02/26/17 18:30 Course - Reevaluation(s) Reevaluation #1: Discussed with patient the need for hospitalization given his kidney function. - Consultations Consultation #1: Discussed with hospitalist service who will admit for further evaluation treatment peer Results - Labs CBC & BMP: 02/26/17 17:47 02/26/17 17:47 Labs: I have reviewed the laboratory noted the depressed hematocrit, renal failure numbers, elevated BMP, and elevated troponins. - Impressions EKG: Sinus rhythm at 70 with normal AR interval and nonspecific intraventricular conduction delay. Diffuse nonspecific ST changes with T-wave inversion in the lateral leads but no acute injury pattern noted. - Diagnostic Findings Procedure: Abdominal x-ray: image reviewed by me, report reviewed by me (Severe constipation), Chest x-ray: image reviewed by me, report reviewed by me (Mild cardiomegaly with borderline failure.) Disposition Clinical Impression: Renal failure, Congestive failure, Severe constipation, Prostate cancer Case discussed with: patient Disposition: Still a Patient Condition: Guarded Time of Disposition: 19:04
[2017-02-26 18:02] LABS: Basophils % 0.2 % (0.0-0.8); Eosinophils # 0.1 10*3/uL (0.0-0.87); Eosinophils % 2.2 % (0.00-10.9); Hematocrit 24.9 VOL% (42.0-52.0); Hemoglobin 8.3 GM/DL (14.0-18.0); Immature Granulocytes % 0.4 %; Immature Granulocytes Absolute 0.02 #; Lymphocytes # 0.4 10*3/uL (1.4-4.0); Lymphocytes % 7.3 % (21.2-54.2); Mean Corpuscular HGB Conc 33.3 GM/DL (32-36); Mean Corpuscular Hemoglobin 27 PG (27-34); Mean Corpuscular Volume 80.1 FL (87-102); Mean Platelet Volume 11.3 FL (9.6-12.0); Monocytes # 0.6 10*3/uL (0.11-0.8); Monocytes % 11.2 % (1.7-12.7); Neutrophils % 78.7 % (38.7-73.9); Platelet Count 177 T/CUMM (130-400); Red Blood Count 3.11 MC/CUMM (3.8-5.5); Red Cell Distribution Width 15.1 % (9.3-17.3); White Blood Count 5.1 T/CUMM (4-12)
[2017-02-26 18:07] LABS: Apearance,Urine Slightly Hazy (Clear); Bilirubin,Urine Negative (Negative); Blood, Urine Negative (Negative); Glucose,Urine (UA) Negative (Negative); Ketones,Urine Negative (Negative); Mucus,Urine Occasional /LPF (Occasional); Nitrite,Urine Negative (Negative); Protein,Urine 30 MG/DL; RBC,Urine <1 /HPF (0-4); Urine Color Yellow (Yellow); Urine Specific Gravity 1.012 (1.001-1.035); Urine Urobilinogen < 2.0 EU/DL (0.2-1.0); WBC,Urine 2 /HPF (0-6)
[2017-02-26 18:11] LABS: Barbiturates Screen,Urine Negative (Negative); Benzodiazepines Screen,Urine Negative (Negative); Cannabinoid Screen,Urine Negative (Negative); Opiate Screen,Urine Negative (Negative); Phencyclidine Screen,Urine Negative (Negative)
[2017-02-26 18:25] LABS: Alanine Aminotransferase 145 U/L (16-61); Albumin 3.6 G/DL (3.4-5.0); Alkaline Phosphatase 208 U/L (45-117); Aspartate Amino Transferase 48 U/L (0-37); Blood Urea Nitrogen 115 MG/DL (7-18); Calcium 8.4 MG/DL (8.5-10.1); Glucose 174 MG/DL (74-106); Osmolality,Calculated 313.8 MOS/KG (273-304); Potassium 3.7 MMOL/L (3.5-5.1); Sodium 137 MMOL/L (136-145)
[2017-02-26 18:27] LABS: Troponin I Only 0.113 NG/ML (0.00-0.045)
--- NOTE | 2017-02-26 18:30 | XRay Report ---
History: Pain Date: 02/26/2017 Study: Flat and erect abdomen Comparison exam: No previous similar There is no evidence of pneumoperitoneum. There is a moderate to large amount of stool in the distal colon and rectum. There is nonspecific fluid in the colon which could signify some underlying diarrhea. There is no definite radiopaque renal stone. Surgical clips overlie the pelvis bilaterally. There is no acute osseous abnormality. Impression: Moderate to large amount of stool in the distal colon and rectum which could signify constipation PROCEDURE INTERPRETED AT [facility] DEPARTMENT OF RADIOLOGY Final Report Signed by: Dr. Lolis Kennedy
--- NOTE | 2017-02-26 18:35 | XRay Report ---
History: Chest pain Date: 02/26/2017 Study: Chest x-ray PA and lateral Comparison exam: February 02, 2017 There is mild cardiomegaly. There is no mediastinal mass. There is moderate aortic arch calcification. There is trace bilateral pleural effusion. The pulmonary vasculature is borderline to minimally prominent. There is slight coarsening of interstitial markings in the lung bases, though this is similar to the previous study. No definite acute infiltrate is identified. Osseous structures are unchanged. Impression: Mild cardiomegaly and borderline CHF appearance. No acute changes otherwise PROCEDURE INTERPRETED AT [facility] DEPARTMENT OF RADIOLOGY Final Report Signed by: Dr. Lolis Kennedy
[2017-02-26 20:08] LABS: INR 1.2; PT Patient Result 12.3 SECS; Partial Thromboplastin Time 27.1 SECS (0-40)
--- NOTE | 2017-02-26 20:37 | Hospitalist History & Physical ---
<Ale Castillo - Last Filed: 02/26/17 20:22> Assessment and Plan - Time spent with patient Time spent with patient: Less than 30 minutes (1) Pulmonary edema Status: Acute Assessment and plan: Patient is slightly hypoxic. Oxygen saturations 92% when talking but will increase Lasix 80mg IV x1 dose Lasix 40mg IV BID Monitor I/Os Renal diet Current Visit: Yes (2) Constipation Status: Acute Assessment and plan: Protuberant abdomen KUB shows diffuse stool and large pockets of air Colace 100mg po BID Lactulose 20gram po q6 hours Current Visit: Yes (3) Elevated serum creatinine Status: Chronic Assessment and plan: Will consult Nephrology for recommendations Current Visit: Yes (4) Low hemoglobin and low hematocrit Status: Acute Assessment and plan: Will obtain 3 occult stools and monitor H/H Current Visit: Yes (5) Diabetes mellitus Status: Chronic Assessment and plan: Accuchecks ACHS SSI Will restart home medications once confirmed Current Visit: No (6) Dyslipidemia Status: Chronic Assessment and plan: Will restart home medications once confirmed Current Visit: No (7) Hypertension Status: Chronic Assessment and plan: Will restart home medications once confirmed Current Visit: No History of Present Illness Chief complaint: chest and abdominal pressure History of present illness: Called to the ER for Mr. Jimmy Salter who is a 66 year old male that began having abdominal and chest pressure at [address] Ospina' s office for a creatinine recheck. Patient states the pressure began after eating but denied any alleviating or aggravating factors. He states he has had some issues with constipation and the pressure feels like he needs to go to the bathroom. He drank one bottle of Mag Citrate at 1430 today but has not had any relief. He denies any shortness of breath, dyspepsia, flatulence, coughing, fevers, chest pain, or difficulty urinating. Patient states he was recently taken off his Lasix because it was causing him to become dehydrated. Patient has had a recent [place] within the month and had stents placed by Dr. Oconnor. He was discharged home and returned on Feb 02 in atrial flutter. He was managed with medications and sent home to return to Dr. Ospina in clinic. During his stay, his creatinine became elevated and Dr. Ospina was following that with repeat creatinines. Additional history includes HTN, DM, dyslipidemia, CHF, pulmonary fibrosis, prostate cancer with prostatectomy, and kidney failure that is being followed by Dr. Corona and Dr. Ospina. Patient is taking Eliquis and Plavix. Last echo January 2017 with EF 60%. Mr. Marquez will be admitted to CCU for closer monitoring. We will diuresis him , consult cardiology and nephrology, draw serial troponins, check occult blood due to lower H/H, and monitor creatinine. Home Medications Medication Instructions Recorded Confirmed Type Ascorbic Acid Tab [Vitamin C Tab] 500 mg PO DAILY 02/22/15 02/02/17 History Insulin Degludec [Tresiba 50 units SUBCUT QAM 01/27/17 02/02/17 History Flextouch U-200] Clopidogrel [Plavix] 75 mg PO DAILY #30 tablet 01/30/17 02/02/17 Rx Loratadine [Claritin] 10 mg PO DAILY #15 tablet 01/30/17 02/02/17 Rx Minoxidil [Loniten] 5 mg PO BID #60 tablet 01/30/17 02/02/17 Rx NIFEdipine XL TAB [Procardia Xl] 90 mg PO DAILY #30 tablet 01/30/17 02/02/17 Rx Nitroglycerin Sl Tab [Nitrostat] 0.4 mg SL Q5M PRN #1 bottle 01/30/17 02/02/17 Rx Rosuvastatin [Crestor] 40 mg PO DAILY #30 tablet 01/30/17 02/02/17 Rx hydrALAZINE TAB [Apresoline Tab] 100 mg PO TID #90 tablet 01/30/17 02/02/17 Rx Insulin Aspart [NovoLOG] 17 units SUBCUT TIDAC 02/03/17 02/03/17 History Apixaban [Eliquis] 2.5 mg PO BID #60 tablet 02/06/17 Rx Sotalol [Betapace] 40 mg PO BID #60 tablet 02/06/17 Rx Allergies Allergy/AdvReac Type Severity Reaction Status Date / Time No Known Allergies Allergy Verified 02/22/15 07:53 Medical,Surgical,& Family Hx - Medical History Cardio: History of: CHF, Hypertension, [place], Cardiovascular Problems Neurology: No history of: Seizures Endocrine: History of: Diabetes Mellitus (IDDM), Dyslipidemia Rheumatology: History of;: Rheumatoid Arthritis Respiratory: History of: Respiratory Problems (pulmonary fibrosis) No history of: Pneumonia Renal: History of: Renal Failure Genitourinary: History of: Prostate Problems (prostate cancer) Gastrointestinal: History of: GERD, Gastrointestinal Bleed, Hemorrhoids, GI Problems (Constipation) Other: History of: Cancer (prostate cancer) - Surgical History HEENT Surgeries: Surgical HX of: Tonsilectomy & Adenoidectomy Abdominal Surgeries: Surgical HX of: Colonoscopy Reproductive Surgeries: Surgical HX of;: Prostate Surgery - Family History Family History: Reports;: Family Diabetes (sister), Family Heart Disease ( grandmother; father-stent) - Social History Smoking Status: Never smoker Frequency of Alcohol Use: None Type of Drug Use: None - Constitutional Constitutional: Present: weight gain. Absent: chills, excessive sweating, fever (s), night sweats - EENT Eyes: Absent: blurry vision - Cardiovascular Cardiovascular: Present: edema, other (chest pressure). Absent: chest pain at rest, chest pain with activity, dyspnea, dyspnea on exertion, palpitations - Respiratory Respiratory: Absent: cough, dyspnea - Gastrointestinal Gastrointestinal: Present: abdominal pain, bloating, dyspepsia. Absent: diarrhea, dysphagia, nausea, vomiting - Genitourinary Genitourinary: Absent: difficulty urinating - Hematologic/Lymphatic Hematologic/Lymphatic: Absent: easy bleeding Exam - Constitutional Vitals: Period Temp Pulse Resp BP Sys/Faulkner Pulse Ox Last 24 Hr 97.8 F 66-78 16-20 130-138/67-70 95-100 General appearance: mild distress, over weight - Head Head exam: Present: normal inspection, normocephalic - Eye Eye exam: Present: EOMI Pupils: Present: normal accommodation - ENT ENT exam: Present: normal exam, normal external ear exam - Neck Neck exam: Present: normal inspection - Respiratory Respiratory exam: Present: rales (to lower bases bilaterally), wheezes ( diffuse. Respirations even and non-labored with symmetrical rise and fall of chest noted. ). Absent: accessory muscle use - Cardiovascular Cardiovascular exam: Present: irregular rhythm (a-fib on monitor) - GI/Abdominal GI/Abdominal exam: Present: distended, firm, hypoactive bowel sounds. Absent: tenderness - Extremities Exam Extremities exam: Present: normal inspection, normal capillary refill, full ROM - Back Exam Back exam: Present: normal inspection - Neurological Exam Neurological exam: Present: alert, oriented X3 (Answers questions appropriately and makes good eye contact) - Psychiatric Psychiatric exam: Present: normal affect, normal mood - Skin Skin exam: Present: normal color, warm, dry, intact Results - Labs CBC & BMP: 02/26/17 17:47 02/26/17 17:47 Lab Results: I have reviewed the past 24 hour labs - EKG EKG results: interpreted by ERMD - Diagnostic Findings Procedure: Abdominal x-ray: report reviewed by me (Constipation), Chest x-ray: report reviewed by me (Pulmonary edema) <Francisco Gloria - Last Filed: 02/26/17 21:27> Assessment and Plan (1) Chest pressure Status: Acute Current Visit: Yes History of Present Illness History of present illness: Mr. Jimmy Salter is a 66 year old male Exam - Constitutional Vitals: Period Temp Pulse Resp BP Sys/Faulkner Pulse Ox Last 24 Hr 97.8 F 66-78 16-20 130-138/67-70 95-100 Results - Labs CBC & BMP: 02/26/17 17:47 02/26/17 17:47
[2017-02-26] MEDS ORDERED: ONDANSETRON 4 MG/2 ML VIAL IV PRN (21:27)
[2017-02-26] MEDS ORDERED: SIMETHICONE CHEW 125 MG TABLET PO PRN (21:27)
[2017-02-26] MEDS ORDERED: DEXTROSE 50% 25 GM/50 ML SYRINGE IV PRN (21:27)
[2017-02-26] MEDS ORDERED: MORPHINE 2 MG/1 ML SYRINGE IV PRN (21:27)
[2017-02-26] MEDS ORDERED: ENOXAPARIN 30 MG/0.3 ML SYRINGE SUBCUT SCH (21:27)
[2017-02-26] MEDS ORDERED: FUROSEMIDE 40 MG/4 ML VIAL IV ONE (21:27)
[2017-02-26] MEDS ORDERED: GLUCAGON 1 MG VIAL IM PRN (21:27)
[2017-02-27] MEDS: INSULIN LISPRO 100 UNIT/ML SUBCUT SCH ×4 (00:47→18:38)
[2017-02-27] MEDS: LACTULOSE 20 GM/30 ML UDCUP PO SCH ×4 (00:56→17:16)
[2017-02-27 01:01] LABS: Basophils % 0.4 % (0.0-0.8); Eosinophils # 0.1 10*3/uL (0.0-0.87); Eosinophils % 2.1 % (0.00-10.9); Hematocrit 23.9 VOL% (42.0-52.0); Hemoglobin 7.8 GM/DL (14.0-18.0); Immature Granulocytes % 0.4 %; Immature Granulocytes Absolute 0.02 #; Lymphocytes # 0.4 10*3/uL (1.4-4.0); Lymphocytes % 7.9 % (21.2-54.2); Mean Corpuscular HGB Conc 32.6 GM/DL (32-36); Mean Corpuscular Hemoglobin 27 PG (27-34); Mean Corpuscular Volume 81.6 FL (87-102); Mean Platelet Volume 11.4 FL (9.6-12.0); Monocytes # 0.6 10*3/uL (0.11-0.8); Monocytes % 12.1 % (1.7-12.7); Neutrophils # 3.7 10*3/uL (1.4-7.4); Neutrophils % 77.1 % (38.7-73.9); Platelet Count 176 T/CUMM (130-400); Red Blood Count 2.93 MC/CUMM (3.8-5.5); Red Cell Distribution Width 15.2 % (9.3-17.3); White Blood Count 4.8 T/CUMM (4-12)
[2017-02-27 01:10] LABS: INR 1.2; PT Patient Result 12.7 SECS
[2017-02-27 01:29] LABS: Albumin 3.5 G/DL (3.4-5.0); Bilirubin,Total 0.9 MG/DL (0.2-1.0); Calcium 8.2 MG/DL (8.5-10.1); Magnesium 5.4 MG/DL (1.8-2.4); Osmolality,Calculated 315.5 MOS/KG (273-304); Potassium 3.8 MMOL/L (3.5-5.1); Total Protein 6.4 G/DL (6.4-8.3)
[2017-02-27 01:32] LABS: Troponin I Only 0.113 NG/ML (0.00-0.045)
--- NOTE | 2017-02-27 06:02 | EKG Report ---
Stationary ECG Study [facility] ER Test Date: 02/26/2017 5:26:12 PM Pat Name: MALU MCCONNELL Department: Room: 130 Gender: M [employer]: : 1950 Requested by: Eduardo Moss Order Number: [id number] Reading MD: MILADYS COYNE Intervals [place] Rate: 70 P: 81 MN: 178 QRS: 70 QRSD: 154 T: 170 QT: 482 QTc: 503 Interpretive Statements SINUS RHYTHM NONSPECIFIC INTRAVENTRICULAR CONDUCTION BLOCK Electronically Signed On 02-27-17 20:56:32 CDT by MILADYS COYNE [email or web address]
[2017-02-27 07:57] LABS: Troponin I Only 0.109 NG/ML (0.00-0.045)
[2017-02-27] MEDS ORDERED: SODIUM CHLORIDE 0.9% 250 ML IV PRN (09:20)
[2017-02-27] MEDS: PANTOPRAZOLE 40 MG TABLET PO SCH (09:43)
[2017-02-27] MEDS: FUROSEMIDE 40 MG/4 ML VIAL IV SCH ×2 (09:43→17:16)
[2017-02-27 09:48] LABS: Basophils % 0.2 % (0.0-0.8); Eosinophils # 0.1 10*3/uL (0.0-0.87); Eosinophils % 2.9 % (0.00-10.9); Hematocrit 24.5 VOL% (42.0-52.0); Immature Granulocytes % 0.2 %; Immature Granulocytes Absolute 0.01 #; Lymphocytes # 0.4 10*3/uL (1.4-4.0); Lymphocytes % 8.5 % (21.2-54.2); Mean Corpuscular HGB Conc 32.7 GM/DL (32-36); Mean Corpuscular Hemoglobin 27 PG (27-34); Mean Corpuscular Volume 81.7 FL (87-102); Mean Platelet Volume 11.1 FL (9.6-12.0); Monocytes # 0.5 10*3/uL (0.11-0.8); Monocytes % 12.1 % (1.7-12.7); Neutrophils # 3.4 10*3/uL (1.4-7.4); Neutrophils % 76.1 % (38.7-73.9); Platelet Count 167 T/CUMM (130-400); Red Cell Distribution Width 15.2 % (9.3-17.3); White Blood Count 4.5 T/CUMM (4-12)
[2017-02-27 10:33] LABS: Folate 16.2 NG/ML (5.4-24.0); Vitamin B12 840 PG/ML (211-911)
[2017-02-27 10:55] LABS: Sedimentation Rate-Westergren 68 MM/HR (0-20)
--- NOTE | 2017-02-27 11:19 | Cardiology Consult Note ---
Assessment and Plan - Time spent with patient Time spent with patient: Greater than 30 minutes (1) Acute on chronic renal insufficiency Status: Acute Assessment and plan: SEE PLAN OF CARE LISTED BELOW Current Visit: Yes (2) Pulmonary hypertension Status: Chronic Assessment and plan: SEE PLAN OF CARE LISTED BELOW Current Visit: Yes (3) Acute on chronic diastolic CHF (congestive heart failure), NYHA class 3 Status: Acute Assessment and plan: SEE PLAN OF CARE LISTED BELOW Current Visit: Yes (4) Diabetes mellitus Status: Chronic Assessment and plan: SEE PLAN OF CARE LISTED BELOW Current Visit: No Qualifiers: (5) Dyslipidemia Status: Chronic Assessment and plan: SEE PLAN OF CARE LISTED BELOW Current Visit: No (6) Obesity Status: Chronic Assessment and plan: SEE PLAN OF CARE LISTED BELOW Current Visit: No Qualifiers: Body mass index: BMI 33.0-33.9 (7) Hypertension Status: Chronic Assessment and plan: SEE PLAN OF CARE LISTED BELOW Current Visit: No (8) Elevated troponin Status: Chronic Assessment and plan: SEE PLAN OF CARE LISTED BELOW Current Visit: No (9) GLORIA (obstructive sleep apnea) Status: Chronic Assessment and plan: SEE PLAN OF CARE LISTED BELOW Current Visit: No (10) Constipation Status: Acute Assessment and plan: SEE PLAN OF CARE LISTED BELOW Current Visit: Yes (11) CAD (coronary artery disease) Status: Chronic Assessment and plan: SEE PLAN OF CARE LISTED BELOW Current Visit: Yes (12) Anemia Status: Acute Assessment and plan: SEE PLAN OF CARE LISTED BELOW Current Visit: Yes History of Present Illness - Data of Consult Patient: known to practice within the last 3 years Consult date: 02/27/17 Requesting Physician: Francisco Gloria - Consult Narrative Reason for consult: Elevated troponin History of present illness: TECHNICAL AIDE: DR. OSPINA Patient is being seen in the CCU Mr. Marquez, 66BM, routinely followed by Dr. Ospina. Risk factors include : Known CAD (S/P STEMI with PCI-right PDA January 23, 2017), hypertension, dyslipidemia, diabetes, sedentary lifestyle, obesity. History of atrial fibrillation (taking Eliquis 2.5 twice daily for stroke prevention). Of note, patient was hospitalized February 02, 2017 for atrial fibrillation with rapid ventricular response. After reviewing the record, I do not see where he was placed on Eliquis nor discharged on Eliquis however, according to clinic notes from February 15, [address] Ospina patient was taking 2.5 mg Eliquis twice daily, Plavix 75 mg orally daily and no Aspirin. Echocardiogram : EF 60%, mild mitral regurgitation, PAP 62 mmHg. Presented to the emergency department February 26, 2017 with complaints of abdominal and chest pressure which began in the afternoon after eating a large meal. He has been housed in our CCU overnight. Denies chest pain, heaviness or tightness. In retrospect, patient states he is not having any type of chest pain or pressure rather is extremely bloated with abdominal fullness, distention and pressure. He has been taking his medications as prescribed and has not missed a dose of his Plavix or Eliquis. Troponin is mildly elevated at 0.096 however this is trending down from the prior hospitalizations. EKG is stable. This is not an acute ME. KUB revealed constipation. Patient is found to be anemic with a hemoglobin and hematocrit of 8.0 and 24.5. January 24, 2017 hemoglobin hematocrit 12.2 and 36.2 respectively. He has not been taking Aspirin. Kidney function has worsened significantly creatinine noted to be 5.0. Of note his magnesium is 5.4 and I will repeat this to verify its accuracy in the morning. We must continue Plavix she has had a recent drug-eluting stent placed. I am going to hold his Eliquis given his severe anemia. Sotalol has been discontinued given the severe renal insufficiency, Minoxidil discontinued as well. Dr. Corona has been consulted, as has gastroenterology. 2 units of packed red blood cells have been ordered for transfusion. Will diurese him between units if possible. I will further discuss with Dr. Yepez and await additional recommendations. IMPRESSION/PLAN: 1. ABOMDINAL PAIN - gastroenterology has been consulted. KUB reveals constipation however he is extremely bloated. Has transaminitis. Holding any hepatotoxic medications such as lipid-lowering agent. 2. ELEVATED TROPONIN - this is not acute ME. Troponin is actually lower than it has been on prior admissions. 3. KNOWN CAD WITH RECENT PCI - January 23, 2017 STEMI requiring PCI to the right PDA. Continue Plavix per 4. HYPERTENSION - adding metoprolol for better blood pressure control. Would adjust medications accordingly during hospital stay. 5. DYSLIPIDEMIA - will hold his lipid-lowering agent given his transaminitis 6. ANEMIA - transfuse 2 units today. Follow closely. Stop Eliquis. Must continue Plavix. 7. ACUTE ON CHRONIC RENAL INSUFFICIENCY, STAGE III - he is on no nephrotoxic medications. Renal ultrasound is been ordered to rule out obstruction. Avoiding nephrotoxic meds such as ROBERT inhibitors. 8. ATRIAL FIBRILLATION -rate controlled. Has been taking low-dose Eliquis for stroke prevention however given his severe anemia, we will put this on hold for now. Discontinue use of sotalol given the patient's severe renal insufficiency 9. CONSTIPATION - laxatives as needed. 10. PULMONARY HYPERTENSION -this may be right-sided heart failure. PAP 62 mmHg on last echo approximately 6 weeks ago. May benefit from repeat echo to evaluate his pressures, systolic function. 11. ACUTE ON CHRONIC CHF - secondary to diastolic dysfunction, NYHA class III. Continue with beta blockade, diuretics. Cannot introduce an ROBERT inhibitor. 12. OBSTRUCTIVE SLEEP APNEA - will ask his to bring sleep device to use each evening CC: Yaneth Calloway MD - Home Medications and Allergies Home Medications: Home Medications Medication Instructions Recorded Confirmed Type Ascorbic Acid Tab [Vitamin C Tab] 500 mg PO DAILY 02/22/15 02/27/17 History Insulin Degludec [Tresiba 50 units SUBCUT QAM 01/27/17 02/27/17 History Flextouch U-200] Clopidogrel [Plavix] 75 mg PO DAILY #30 tablet 01/30/17 02/27/17 Rx Loratadine [Claritin] 10 mg PO DAILY #15 tablet 01/30/17 02/27/17 Rx NIFEdipine XL TAB [Procardia Xl] 90 mg PO DAILY #30 tablet 01/30/17 02/27/17 Rx Nitroglycerin Sl Tab [Nitrostat] 0.4 mg SL Q5M PRN #1 bottle 01/30/17 02/27/17 Rx hydrALAZINE TAB [Apresoline Tab] 100 mg PO TID #90 tablet 01/30/17 02/27/17 Rx Insulin Aspart [NovoLOG] 17 units SUBCUT TIDAC 02/03/17 02/27/17 History Apixaban [Eliquis] 2.5 mg PO BID #60 tablet 02/06/17 02/27/17 Rx Fluticasone Propionate 1 spray BOTH NARES DAILY PRN 02/27/17 02/27/17 History [Fluticasone 50 mcg Nasal [place]] Rosuvastatin [Crestor] 40 mg PO DAILY 02/27/17 02/27/17 History guaiFENesin [Guaifenesin] 400 mg PO BID 02/27/17 02/27/17 History raNITIdine HCl [Ranitidine HCl] 150 mg PO BID 02/27/17 02/27/17 History Allergies/Adverse Reactions: Allergies Allergy/AdvReac Type Severity Reaction Status Date / Time No Known Allergies Allergy Verified 02/22/15 07:53 Review of systems: REVIEW OF SYSTEMS: - Constitutional Constitutional: Present: Fatigue. Absent: syncope, anorexia, night sweats - EENT Eyes: Absent: blurry vision, loss of vision, diplopia Ears: Absent: decreased hearing, ear pain, ear discharge - Cardiovascular Cardiovascular: Denies: chest pain with exertion. Denies orthopnea though he appears tachypneic at rest. Reports mild dyspnea on exertion. Reports edema bilateral lower extremities, chronic. Denies palpitations. Absent: chest pain with deep breath, claudication - Respiratory Respiratory: Present: WHITAKER, denies cough. Patient is tachypneic at rest though he states he feels as if he is breathing adequately without shortness of breath. Denies being orthopneic. Absent: wheezing, hemoptysis, change in phlegm color - Gastrointestinal Gastrointestinal: Present: constipation, abdominal pain and bloating. Denies hematemesis, hematochezia, melena - Genitourinary Genitourinary: Absent: difficulty urinating, dysuria, urinary hesitancy, flank pain - Musculoskeletal Musculoskeletal: Present: back pain Absent: joint swelling, muscle cramps, muscle weakness - Neurological Neurological: Present: Poor gait without frequent falls. Absent: dizziness, hemiparesis - Psychiatric Psychiatric: Absent: anxiety, depression, difficulty concentrating - Endocrine Endocrine: Present: fatigue. Absent: cold intolerance, heat intolerance, polyuria, polyphagia, polydipsia - Hematologic/Lymphatic Hematologic/Lymphatic: Present: easy bruising. Absent: easy bleeding -Integumentary Integumentary: Absent: lesions, rashes, skin breakdown Medical,Surgical,& Family Hx - Medical History Cardio: History of: Cardiac Dysrhythmia, CHF, CAD, Hypertension, ME, Cardiovascular Problems Neurology: No history of: Seizures Endocrine: History of: Diabetes Mellitus (IDDM), Dyslipidemia Rheumatology: History of;: Rheumatoid Arthritis Respiratory: History of: Respiratory Problems (pulmonary fibrosis) No history of: Pneumonia Renal: History of: Renal Failure Genitourinary: History of: Prostate Problems (prostate cancer) Gastrointestinal: History of: GERD, Gastrointestinal Bleed, Hemorrhoids, GI Problems (Constipation) Other: History of: Cancer (prostate cancer) - Surgical History HEENT Surgeries: Surgical HX of: Tonsilectomy & Adenoidectomy Abdominal Surgeries: Surgical HX of: Colonoscopy Reproductive Surgeries: Surgical HX of;: Prostate Surgery - Family History Family History: Reports;: Family Diabetes (sister), Family Heart Disease ( grandmother; father-stent) - Social History Smoking Status: Never smoker Have you smoked in the last 12 months: No Frequency of Alcohol Use: None Type of Drug Use: None Marital Status: Lives With:: Spouse Functional capacity: independent ambulation Physical Examination Vital Signs Temp Pulse Resp BP Pulse Ox 97.8 F 73 20 130/70 95 02/26/17 17:25 02/26/17 17:25 02/26/17 17:25 02/26/17 17:25 02/26/17 17:25 Exam: General: [Large male slightly tachypneic, appears uncomfortable. ] [Pleasant and cooperative. ] [ HEENT: [Bilateral arcus, normocephalic, atraumatic. Mucous membranes moist. No jaundice noted. Conjunctiva moist and clear, sclerae anicteric] Neck: Unable to assess for JVD due to habitus. No thyromegaly or lymphadenopathy noted. No carotid bruit appreciated Cardiac: [Regular rate and rhythm.] [No obvious murmur rub or gallop.] Lungs: [Decreased sounds noted posteriorly without wheezes, rales or rhonchi ] Oxygen in use via nasal cannula Abdomen: Large, distended with hyperactive bowel sounds. No masses noted. Musculoskeletal: Flexion and joints of knees. Decreased range of motion is noted. Extremities: No clubbing, cyanosis noted. [1+ bilateral lower extremity edema. ] Upper extremity pulses 2+. Lower extremity pulses 1+. Capillary refill less than 3 seconds. Skin: No unusual lesions or rashes. No skin breakdown appreciated. Neuro: Awake, alert and oriented 3. Moves all extremities well without hemiparesis or paralysis. No essential tremor is appreciated. Result/EKG - Labs CBC & BMP: 02/27/17 09:33 02/27/17 00:27 Lab Results: I have reviewed the past 24 hour labs Labs: Laboratory Results - last 24 hr 02/26/17 02/26/17 02/26/17 17:47 17:47 17:47 WBC RBC Hgb Hct MCV MCH MCHC RDW Plt Count MPV Neut % (Auto) Lymph % (Auto) [place] % (Auto) Eos % (Auto) Baso % (Auto) Neut # (Auto) Lymph # (Auto) [place] # (Auto) Eos # (Auto) Baso # (Auto) Immature Gran % Nucleated RBC % Immature Gran # Nucleated RBCs # Immature Plt Fraction ESR Westergren Absolute Retic Percent Retic Retic Hgb Equivalent INR 1.2 PT Patient/Control Mix 12.3 Circ Anticoag PTT 27.1 Sodium 137 Potassium 3.7 Chloride 102 Carbon Dioxide 24 Anion Gap 14.7 BUN 115 H Creatinine 5.10 H GFR Calculation 17 BUN/Creatinine Ratio 22.00 H Glucose 174 H POC Glucose Calculated Osmolality 313.8 H Calcium 8.4 L Magnesium Ferritin Total Bilirubin 0.40 AST 48 H ALT 145 H Alkaline Phosphatase 208 H Total Creatine Kinase 252 CK-MB (CK-2) 2.4 Troponin I 0.113 H B-Natriuretic Peptide Total Protein 7.0 Albumin 3.6 Globulin 3.4 Albumin/Globulin Ratio 1.0 L Lipase 473.0 H Vitamin B12 Folate Urine Color Yellow Urine Appearance Slightly hazy Urine pH 5.0 Ur Specific [place] 1.012 Urine Protein 30 Urine Glucose (UA) Negative Urine Ketones Negative Urine Blood Negative Urine Nitrate Negative Urine Bilirubin Negative Urine Urobilinogen < 2.0 H Urine Leukocytes Negative Urine RBC <1 Urine WBC 2 Urine Mucus Occasional Ur Culture Indicated? Not indicated Urine Opiates Screen Ur Barbiturates Screen Ur Phencyclidine Scrn U Amphetamine/Methamph U Benzodiazepines Scrn U Cocaine Metab Screen U Cannabinoids Screen Blood Type Antibody Screen JEAN (IgG-AHG) JEAN, Polyspecific Crossmatch 02/26/17 02/26/17 02/26/17 17:47 17:47 17:47 WBC 5.1 RBC 3.11 L Hgb 8.3 L Hct 24.9 L MCV 80.1 L MCH 27 MCHC 33.3 RDW 15.1 Plt Count 177 MPV 11.3 Neut % (Auto) 78.7 H Lymph % (Auto) 7.3 L [place] % (Auto) 11.2 Eos % (Auto) 2.2 Baso % (Auto) 0.2 Neut # (Auto) 4.0 Lymph # (Auto) 0.4 L [place] # (Auto) 0.6 Eos # (Auto) 0.1 Baso # (Auto) 0.0 Immature Gran % 0.4 Nucleated RBC % 0.0 Immature Gran # 0.02 Nucleated RBCs # 0.00 Immature Plt Fraction 0.0 ESR [place] Absolute Retic Percent Retic Retic Hgb Equivalent INR PT Patient/Control Mix Circ Anticoag PTT Sodium Potassium Chloride Carbon Dioxide Anion Gap BUN Creatinine GFR Calculation BUN/Creatinine Ratio Glucose POC Glucose Calculated Osmolality Calcium Magnesium Ferritin Total Bilirubin AST ALT Alkaline Phosphatase Total Creatine Kinase CK-MB (CK-2) Troponin I B-Natriuretic Peptide 755 H Total Protein Albumin Globulin Albumin/Globulin Ratio Lipase Vitamin B12 Folate Urine Color Urine Appearance Urine pH Ur Specific [place] Urine Protein Urine Glucose (UA) Urine Ketones Urine Blood Urine Nitrate Urine Bilirubin Urine Urobilinogen Urine Leukocytes Urine RBC Urine WBC Urine Mucus Ur Culture Indicated? Urine Opiates Screen Negative Ur Barbiturates Screen Negative Ur Phencyclidine Scrn Negative U Amphetamine/Methamph Negative U Benzodiazepines Scrn Negative U Cocaine Metab Screen Negative U Cannabinoids Screen Negative Blood Type Antibody Screen JEAN (IgG-AHG) JEAN, Polyspecific Crossmatch 02/26/17 02/27/17 02/27/17 17:47 00:27 00:27 WBC 4.8 RBC 2.93 L Hgb 7.8 L Hct 23.9 L MCV 81.6 L MCH 27 MCHC 32.6 RDW 15.2 Plt Count 176 MPV 11.4 Neut % (Auto) 77.1 H Lymph % (Auto) 7.9 L [place] % (Auto) 12.1 Eos % (Auto) 2.1 Baso % (Auto) 0.4 Neut # (Auto) 3.7 Lymph # (Auto) 0.4 L [place] # (Auto) 0.6 Eos # (Auto) 0.1 Baso # (Auto) 0.0 Immature Gran % 0.4 Nucleated RBC % 0.0 Immature Gran # 0.02 Nucleated RBCs # 0.00 Immature Plt Fraction 0.0 ESR [place] Absolute Retic Percent Retic Retic Hgb Equivalent INR PT Patient/Control Mix Circ Anticoag PTT Sodium Potassium Chloride Carbon Dioxide Anion Gap BUN Creatinine GFR Calculation BUN/Creatinine Ratio Glucose POC Glucose Calculated Osmolality Calcium Magnesium Ferritin Total Bilirubin AST ALT Alkaline Phosphatase Total Creatine Kinase 243 CK-MB (CK-2) 2.5 Troponin I 0.096 H 0.113 H B-Natriuretic Peptide Total Protein Albumin Globulin Albumin/Globulin Ratio Lipase Vitamin B12 Folate Urine Color Urine Appearance Urine pH Ur Specific [place] Urine Protein Urine Glucose (UA) Urine Ketones Urine Blood Urine Nitrate Urine Bilirubin Urine Urobilinogen Urine Leukocytes Urine RBC Urine WBC Urine Mucus Ur Culture Indicated? Urine Opiates Screen Ur Barbiturates Screen Ur Phencyclidine Scrn U Amphetamine/Methamph U Benzodiazepines Scrn U Cocaine Metab Screen U Cannabinoids Screen Blood Type Antibody Screen JEAN (IgG-AHG) JEAN, Polyspecific Crossmatch 02/27/17 02/27/17 02/27/17 00:27 00:27 00:40 WBC RBC Hgb Hct MCV MCH MCHC RDW Plt Count MPV Neut % (Auto) Lymph % (Auto) [place] % (Auto) Eos % (Auto) Baso % (Auto) Neut # (Auto) Lymph # (Auto) [place] # (Auto) Eos # (Auto) Baso # (Auto) Immature Gran % Nucleated RBC % Immature Gran # Nucleated RBCs # Immature Plt Fraction ESR [place] Absolute Retic Percent Retic Retic Hgb Equivalent INR 1.2 PT Patient/Control Mix 12.7 Circ Anticoag PTT Sodium 139 Potassium 3.8 Chloride 103 Carbon Dioxide 29 Anion Gap 10.8 BUN 123 H Creatinine 5.00 H GFR Calculation 18 BUN/Creatinine Ratio 24.00 H Glucose 90 POC Glucose 88 Calculated Osmolality 315.5 H Calcium 8.2 L Magnesium 5.4 H Ferritin Total Bilirubin 0.90 AST 48 H ALT 140 H Alkaline Phosphatase 207 H Total Creatine Kinase CK-MB (CK-2) Troponin I B-Natriuretic Peptide Total Protein 6.4 Albumin 3.5 Globulin 2.9 Albumin/Globulin Ratio 1.2 Lipase Vitamin B12 Folate Urine Color Urine Appearance Urine pH Ur Specific [place] Urine Protein Urine Glucose (UA) Urine Ketones Urine Blood Urine Nitrate Urine Bilirubin Urine Urobilinogen Urine Leukocytes Urine RBC Urine WBC Urine Mucus Ur Culture Indicated? Urine Opiates Screen Ur Barbiturates Screen Ur Phencyclidine Scrn U Amphetamine/Methamph U Benzodiazepines Scrn U Cocaine Metab Screen U Cannabinoids Screen Blood Type Antibody Screen JEAN (IgG-AHG) JEAN, Polyspecific Crossmatch 02/27/17 02/27/17 02/27/17 06:25 07:03 07:04 WBC RBC Hgb Hct MCV MCH MCHC RDW Plt Count MPV Neut % (Auto) Lymph % (Auto) [place] % (Auto) Eos % (Auto) Baso % (Auto) Neut # (Auto) Lymph # (Auto) [place] # (Auto) Eos # (Auto) Baso # (Auto) Immature Gran % Nucleated RBC % Immature Gran # Nucleated RBCs # Immature Plt Fraction ESR [place] Absolute Retic Percent Retic Retic Hgb Equivalent INR PT Patient/Control Mix Circ Anticoag PTT Sodium Potassium Chloride Carbon Dioxide Anion Gap BUN Creatinine GFR Calculation BUN/Creatinine Ratio Glucose POC Glucose 51 L 60 L Calculated Osmolality Calcium Magnesium Ferritin Total Bilirubin AST ALT Alkaline Phosphatase Total Creatine Kinase 221 CK-MB (CK-2) 2.2 Troponin I 0.109 H B-Natriuretic Peptide Total Protein Albumin Globulin Albumin/Globulin Ratio Lipase Vitamin B12 Folate Urine Color Urine Appearance Urine pH Ur Specific [place] Urine Protein Urine Glucose (UA) Urine Ketones Urine Blood Urine Nitrate Urine Bilirubin Urine Urobilinogen Urine Leukocytes Urine RBC Urine WBC Urine Mucus Ur Culture Indicated? Urine Opiates Screen Ur Barbiturates Screen Ur Phencyclidine Scrn U Amphetamine/Methamph U Benzodiazepines Scrn U Cocaine Metab Screen U Cannabinoids Screen Blood Type Antibody Screen JEAN (IgG-AHG) JEAN, Polyspecific Crossmatch 02/27/17 02/27/17 02/27/17 09:10 09:33 09:33 WBC 4.5 RBC 3.00 L Hgb 8.0 L Hct 24.5 L MCV 81.7 L MCH 27 MCHC 32.7 RDW 15.2 Plt Count 167 MPV 11.1 Neut % (Auto) 76.1 H Lymph % (Auto) 8.5 L [place] % (Auto) 12.1 Eos % (Auto) 2.9 Baso % (Auto) 0.2 Neut # (Auto) 3.4 Lymph # (Auto) 0.4 L [place] # (Auto) 0.5 Eos # (Auto) 0.1 Baso # (Auto) 0.0 Immature Gran % 0.2 Nucleated RBC % 0.0 Immature Gran # 0.01 Nucleated RBCs # 0.00 Immature Plt Fraction 0.0 ESR W[place] 68 H Absolute Retic 0.0 Percent Retic 0.9 Retic Hgb Equivalent 30.8 INR PT Patient/Control Mix Circ Anticoag PTT Sodium Potassium Chloride Carbon Dioxide Anion Gap BUN Creatinine GFR Calculation BUN/Creatinine Ratio Glucose POC Glucose 108 H Calculated Osmolality Calcium Magnesium Ferritin 457.0 H Total Bilirubin AST ALT Alkaline Phosphatase Total Creatine Kinase CK-MB (CK-2) Troponin I B-Natriuretic Peptide Total Protein Albumin Globulin Albumin/Globulin Ratio Lipase Vitamin B12 Folate Urine Color Urine Appearance Urine pH Ur Specific [place] Urine Protein Urine Glucose (UA) Urine Ketones Urine Blood Urine Nitrate Urine Bilirubin Urine Urobilinogen Urine Leukocytes Urine RBC Urine WBC Urine Mucus Ur Culture Indicated? Urine Opiates Screen Ur Barbiturates Screen Ur Phencyclidine Scrn U Amphetamine/Methamph U Benzodiazepines Scrn U Cocaine Metab Screen U Cannabinoids Screen Blood Type Antibody Screen JEAN (IgG-AHG) JEAN, Polyspecific Crossmatch 02/27/17 02/27/17 02/27/17 09:33 09:33 09:33 WBC RBC Hgb Hct MCV MCH MCHC RDW Plt Count MPV Neut % (Auto) Lymph % (Auto) [place] % (Auto) Eos % (Auto) Baso % (Auto) Neut # (Auto) Lymph # (Auto) [place] # (Auto) Eos # (Auto) Baso # (Auto) Immature Gran % Nucleated RBC % Immature Gran # Nucleated RBCs # Immature Plt Fraction ESR [place] Absolute Retic Percent Retic Retic Hgb Equivalent INR PT Patient/Control Mix Circ Anticoag PTT Sodium Potassium Chloride Carbon Dioxide Anion Gap BUN Creatinine GFR Calculation BUN/Creatinine Ratio Glucose POC Glucose Calculated Osmolality Calcium Magnesium Ferritin Total Bilirubin AST ALT Alkaline Phosphatase Total Creatine Kinase CK-MB (CK-2) Troponin I B-Natriuretic Peptide Total Protein Albumin Globulin Albumin/Globulin Ratio Lipase Vitamin B12 840 Folate 16.2 Urine Color Urine Appearance Urine pH Ur Specific [place] Urine Protein Urine Glucose (UA) Urine Ketones Urine Blood Urine Nitrate Urine Bilirubin Urine Urobilinogen Urine Leukocytes Urine RBC Urine WBC Urine Mucus Ur Culture Indicated? Urine Opiates Screen Ur Barbiturates Screen Ur Phencyclidine Scrn U Amphetamine/Methamph U Benzodiazepines Scrn U Cocaine Metab Screen U Cannabinoids Screen Blood Type O POSITIVE Antibody Screen Negative JEAN (IgG-AHG) Negative JEAN, Polyspecific Negative Crossmatch See Detail 02/27/17 Unknown WBC RBC Hgb Hct MCV MCH MCHC RDW Plt Count MPV Neut % (Auto) Lymph % (Auto) [place] % (Auto) Eos % (Auto) Baso % (Auto) Neut # (Auto) Lymph # (Auto) [place] # (Auto) Eos # (Auto) Baso # (Auto) Immature Gran % Nucleated RBC % Immature Gran # Nucleated RBCs # Immature Plt Fraction ESR [place] Absolute Retic Percent Retic Retic Hgb Equivalent INR PT Patient/Control Mix Circ Anticoag PTT Sodium Potassium Chloride Carbon Dioxide Anion Gap BUN Creatinine GFR Calculation BUN/Creatinine Ratio Glucose POC Glucose Calculated Osmolality Calcium Magnesium Ferritin Total Bilirubin AST ALT Alkaline Phosphatase Total Creatine Kinase CK-MB (CK-2) Troponin I B-Natriuretic Peptide Total Protein Albumin Globulin Albumin/Globulin Ratio Lipase Vitamin B12 Folate Urine Color Urine Appearance Urine pH Ur Specific [place] Urine Protein Urine Glucose (UA) Urine Ketones Urine Blood Urine Nitrate Urine Bilirubin Urine Urobilinogen Urine Leukocytes Urine RBC Urine WBC Urine Mucus Ur Culture Indicated? Urine Opiates Screen Ur Barbiturates Screen Ur Phencyclidine Scrn U Amphetamine/Methamph U Benzodiazepines Scrn U Cocaine Metab Screen U Cannabinoids Screen Blood Type O POSITIVE Antibody Screen JEAN (IgG-AHG) JEAN, Polyspecific Crossmatch - Diagnostic Findings Procedure: Chest x-ray: report reviewed by me - EKG EKG results: interpreted by me EKG shows: sinus rhythm
--- NOTE | 2017-02-27 11:24 | Nephrology Consult Note ---
History of Present Illness Chief complaint: ARF on CRF History of present illness: Mr. Jimmy Salter is a 66 year old male with several chronic medical problems including chronic renal failure. He was hospitalized last month after an SD and readmitted with atrial flutter. Creatinine was 2.4 three weeks ago. He presented last night with upper abdominal and chest pressure. He has had constipation. He denies nausea or vomiting. He was noted to have worsening renal function at the time of this presentation. Lasix was recently discontinued by Dr. Ospina because his creatinine had risen. He denies obstructive symptoms. He has had no dysuria. He does have a history of prostate cancer. Home Medications Medication Instructions Recorded Confirmed Type Ascorbic Acid Tab [Vitamin C Tab] 500 mg PO DAILY 02/22/15 02/02/17 History Insulin Degludec [Tresiba 50 units SUBCUT QAM 01/27/17 02/02/17 History Flextouch U-200] Clopidogrel [Plavix] 75 mg PO DAILY #30 tablet 01/30/17 02/02/17 Rx Loratadine [Claritin] 10 mg PO DAILY #15 tablet 01/30/17 02/02/17 Rx Minoxidil [Loniten] 5 mg PO BID #60 tablet 01/30/17 02/02/17 Rx NIFEdipine XL TAB [Procardia Xl] 90 mg PO DAILY #30 tablet 01/30/17 02/02/17 Rx Nitroglycerin Sl Tab [Nitrostat] 0.4 mg SL Q5M PRN #1 bottle 01/30/17 02/02/17 Rx Rosuvastatin [Crestor] 40 mg PO DAILY #30 tablet 01/30/17 02/02/17 Rx hydrALAZINE TAB [Apresoline Tab] 100 mg PO TID #90 tablet 01/30/17 02/02/17 Rx Insulin Aspart [NovoLOG] 17 units SUBCUT TIDAC 02/03/17 02/03/17 History Apixaban [Eliquis] 2.5 mg PO BID #60 tablet 02/06/17 Rx Sotalol [Betapace] 40 mg PO BID #60 tablet 02/06/17 Rx Allergies Allergy/AdvReac Type Severity Reaction Status Date / Time No Known Allergies Allergy Verified 02/22/15 07:53 Medical,Surgical,& Family Hx - Medical History Cardio: History of: CHF, Hypertension, SD, Cardiovascular Problems Neurology: No history of: Seizures Endocrine: History of: Diabetes Mellitus (IDDM), Dyslipidemia Rheumatology: History of;: Rheumatoid Arthritis Respiratory: History of: Respiratory Problems (pulmonary fibrosis) No history of: Pneumonia Renal: History of: Renal Failure Genitourinary: History of: Prostate Problems (prostate cancer) Gastrointestinal: History of: GERD, Gastrointestinal Bleed, Hemorrhoids, GI Problems (Constipation) Other: History of: Cancer (prostate cancer) - Surgical History HEENT Surgeries: Surgical HX of: Tonsilectomy & Adenoidectomy Abdominal Surgeries: Surgical HX of: Colonoscopy Reproductive Surgeries: Surgical HX of;: Prostate Surgery - Family History Family History: Reports;: Family Diabetes (sister), Family Heart Disease ( grandmother; father-stent) - Social History Smoking Status: Never smoker Frequency of Alcohol Use: None Type of Drug Use: None Review of Systems 12 point system: reviewed and no additional remarkable complaints except as stated Exam - Vital Signs Vital signs: Period Temp Pulse Resp BP Sys/Faulkner Pulse Ox Last 24 Hr 96.5 F-97.8 F 54-78 16-22 121-152/59-83 93-100 Exam: Gen.: Alert and oriented x3. ENT: Pupils equal round reactive to light. EOMs intact. Mucous membranes moist. Neck: Supple. No JVD or bruit. Cardiovascular: Regular rate and rhythm. No murmur rub or gallop Lungs: Clear Abdomen: Distended. Nontender Extremities: 2+ edema Results - Labs CBC & BMP: 02/27/17 09:33 02/27/17 00:27 Assessment and Plan (1) Acute on chronic renal insufficiency Status: Chronic Assessment and plan: 66-year-old man with: * CRF stage III. Creatinine 2.4 last month * Acute on chronic renal failure. Etiology is not clear. He is on no nephrotoxic medications. He denies use of NSAIDs. Blood pressure has not been low. Ultrasound will be ordered to rule out obstruction * Volume overload. He has borderline CHF but significant peripheral edema. Weight is 3 kg higher than 1 month ago. Recommend discontinuing minoxidil.. He is receiving Lasix IV * CAD. Cardiac cath with stents 01/23/2017 * Constipation * Anemia. He is to be transfused * Diabetes mellitus Current Visit: No (2) CAD (coronary artery disease) Status: Acute Current Visit: Yes (3) Anemia Status: Acute Current Visit: Yes (4) Constipation Status: Acute Current Visit: Yes (5) Coronary artery disease Status: Chronic Current Visit: No (6) Diabetes mellitus Status: Chronic Current Visit: No Qualifiers: (7) Hypertension Status: Chronic Current Visit: No
[2017-02-27] MEDS ORDERED: CLOPIDOGREL 75 MG TABLET PO SCH (12:00)
--- NOTE | 2017-02-27 12:25 | Gastrointestinal Consult Note ---
Assessment and Plan (1) Anemia Status: Acute Assessment and plan: 02/27-Admitted with abdominal pain and chest pain with findings of HH of 01/06 without overt bleeding. No known prior history of anemia in past. Being transfused 2 units PRBC today. Stools 1+ positive for occult blood. Prior colonoscopy in 2014 with only finding of internal hemorrhoids. Abdominal xray shows moderate to large amount of stool in distal colon and rectum. Continue to monitor at this time. Plan and addendum to follow by Dr Kennedy. Current Visit: Yes History of Present Illness Chief complaint: Anemia, abd pain History of present illness: Mr. Jimmy Salter is a 66 year old male who was admitted to the hospital on yesterday with complaints of chest pain as well as abdominal pressure. Patient has a prior history of diabetes, hypertension, and recent cardiac stents. Patient was seen by Dr. Oconnor approximately a month ago and underwent a cardiac catheterization which he had stents placed. He also had a recent diagnosis of atrial flutter. He was placed on Eliquis and Plavix following this. Patient states that over the last several months he has had problems with constipation however states this is worsened over the last several days. He states that he has had some abdominal bloating and distention and great difficulty going to the bathroom. He states that he has taken laxatives such as magnesium [employer] with minimal to no relief. He was also found on admission to be anemic with a hemoglobin of 7 with no known prior history of this or blood transfusions in the past. Stools for occult blood were checked and noted to be 1+ positive. He denies any nausea, vomiting, epigastric pain with eating, fever or chills. On admission, patient was also found to have pulmonary edema as well as elevated creatinine. He has had a colonoscopy in the past [place] [address] Kennedy with only findings of internal hemorrhoids but denies any upper endoscopy. He states he does have a history of GI bleeding in the past but unable to recall the specifics regarding this at this time. He had an abdominal ultrasound this morning which showed mild gallbladder wall thickening without cholelithiasis with a common bile duct at 9.1 mm. He was noted on admission to have elevated transaminases. He is also noted to have a ferritin level of 457. Also of mention is a lipase level of 473. Home Medications Medication Instructions Recorded Confirmed Type Ascorbic Acid Tab [Vitamin C Tab] 500 mg PO DAILY 02/22/15 02/02/17 History Insulin Degludec [Tresiba 50 units SUBCUT QAM 01/27/17 02/02/17 History Flextouch U-200] Clopidogrel [Plavix] 75 mg PO DAILY #30 tablet 01/30/17 02/02/17 Rx Loratadine [Claritin] 10 mg PO DAILY #15 tablet 01/30/17 02/02/17 Rx NIFEdipine XL TAB [Procardia Xl] 90 mg PO DAILY #30 tablet 01/30/17 02/02/17 Rx Nitroglycerin Sl Tab [Nitrostat] 0.4 mg SL Q5M PRN #1 bottle 01/30/17 02/02/17 Rx Rosuvastatin [Crestor] 40 mg PO DAILY #30 tablet 01/30/17 02/02/17 Rx hydrALAZINE TAB [Apresoline Tab] 100 mg PO TID #90 tablet 01/30/17 02/02/17 Rx Insulin Aspart [NovoLOG] 17 units SUBCUT TIDAC 02/03/17 02/03/17 History Apixaban [Eliquis] 2.5 mg PO BID #60 tablet 02/06/17 Rx Allergies Allergy/AdvReac Type Severity Reaction Status Date / Time No Known Allergies Allergy Verified 02/22/15 07:53 Medical,Surgical,& Family Hx - Medical History Cardio: History of: CHF, Hypertension, SD, Cardiovascular Problems Neurology: No history of: Seizures Endocrine: History of: Diabetes Mellitus (IDDM), Dyslipidemia Rheumatology: History of;: Rheumatoid Arthritis Respiratory: History of: Respiratory Problems (pulmonary fibrosis) No history of: Pneumonia Renal: History of: Renal Failure Genitourinary: History of: Prostate Problems (prostate cancer) Gastrointestinal: History of: GERD, Gastrointestinal Bleed, Hemorrhoids, GI Problems (Constipation) Other: History of: Cancer (prostate cancer) - Surgical History HEENT Surgeries: Surgical HX of: Tonsilectomy & Adenoidectomy Abdominal Surgeries: Surgical HX of: Colonoscopy Reproductive Surgeries: Surgical HX of;: Prostate Surgery - Family History Family History: Reports;: Family Diabetes (sister), Family Heart Disease ( grandmother; father-stent) - Social History Smoking Status: Never smoker Frequency of Alcohol Use: None Type of Drug Use: None 12 point system: reviewed and no additional remarkable complaints except as stated - Constitutional Constitutional: Present: as per HPI - EENT Eyes: Present: as per HPI Ears: Present: as per HPI Nose, mouth and throat: Present: as per HPI - Cardiovascular Cardiovascular: Present: as per HPI - Respiratory Respiratory: Present: as per HPI - Gastrointestinal Gastrointestinal: Present: as per HPI, bloating - Genitourinary Genitourinary: Present: as per HPI - Musculoskeletal Musculoskeletal: Present: as per HPI - Neurological Neurological: Present: as per HPI - Psychiatric Psychiatric: Present: as per HPI - Endocrine Endocrine: Present: as per HPI - Hematologic/Lymphatic Hematologic/Lymphatic: Present: as per HPI Exam - Constitutional Vitals: Period Temp Pulse Resp BP Sys/Faulkner Pulse Ox Last 24 Hr 96.5 F-97.8 F 54-78 16-22 121-152/59-83 93-100 General appearance: normal weight, no acute distress - Head Head exam: Present: normal inspection, normocephalic - Eye Eye exam: Present: other (Lids and conjunctive are unremarkable). Absent: scleral icterus - ENT ENT exam: Present: normal exam, normal oropharynx - Neck Neck exam: Present: normal inspection - Respiratory Respiratory exam: Present: clear to auscultation bilaterally. Absent: rales, rhonchi, wheezes - Cardiovascular Cardiovascular exam: Present: regular rate and rhythm. Absent: diastolic murmur , JVD, systolic murmur - GI/Abdominal GI/Abdominal exam: Present: normal bowel sounds, soft. Absent: ascites, distended, mass, organomegaly, tenderness - Extremities Exam Extremities exam: Present: normal inspection, full ROM - Back Exam Back exam: Present: normal inspection - Neurological Exam Neurological exam: Present: alert, oriented X3 - Psychiatric Psychiatric exam: Present: normal affect, normal mood - Skin Skin exam: Present: normal color, warm, dry Results - Labs CBC & BMP: 02/27/17 09:33 02/27/17 00:27 Lab Results: I have reviewed the past 24 hour labs - Diagnostic Findings Procedure: Ultrasound: report reviewed by me
--- NOTE | 2017-02-27 12:49 | Ultrasound Report ---
Exam: US abdomen complete Date:02/27/2017 11:20 AM Comparison: Renal ultrasound January 28, 2017 Indication: Abdominal pain. Acute renal failure Real-time ultrasound images are captured and archived. There is no focal hepatic mass. There is mild diffuse fatty infiltration of the liver. There is no abnormal biliary dilatation. The gallbladder wall measures minimally thickened at 3.6 mm. There is a negative sonographic Patel sign. There is no evidence of cholelithiasis. The pancreas is obscured by bowel gas. There is no hydronephrosis or abnormal perinephric fluid. There is no focal renal mass. The renal parenchyma is slightly hyperechoic compared to the hepatic parenchyma. The common bile duct measures borderline prominent for this patient's age. The spleen is normal in size and is without focal mass lesion. There is a small right-sided pleural effusion. The abdominal aorta is obscured by bowel gas. IVC is grossly patent. Impression: There is mild gallbladder wall thickening, though there is no evidence of cholelithiasis. There is a negative sonographic Patel's. There is borderline prominence of the common bile duct for this patient's age, though there is no intrahepatic biliary dilatation Mild fatty diffuse infiltration of the liver Evidence of some mild medical renal parenchymal disease ORGAN MEASUREMENTS Liver Length: 17.0 cm Gallbladder Wall Thickness: 3.6 mm CBD; 9.1 mm Spleen: 11.7 x 4.6 x 4.4 cm Right kidney: Length: 11.0 centimeters Left kidney: Length: 12.1 cm The Ultrasound images were captured and stored. PROCEDURE INTERPRETED AT [facility] DEPARTMENT OF RADIOLOGY Final Report Signed by: Dr. Lolis Kennedy
--- NOTE | 2017-02-27 13:23 | Ultrasound Report ---
History: Abdominal pain. Acute renal failure Date: 02/27/2017 Study: Pelvic ultrasound complete Comparison exam: No previous similar Real-time ultrasound images are captured and archived. The moderately distended urinary bladder contains a volume of 221 mL. There is no obvious bladder mass. There is no no obvious pelvic mass. Impression: No abnormality seen PROCEDURE INTERPRETED AT [facility] DEPARTMENT OF RADIOLOGY Final Report Signed by: Dr. Lolis Kennedy
[2017-02-27] MEDS: METOPROLOL TARTRATE 25 MG TABLET PO SCH ×2 (13:32→20:08)
[2017-02-27 15:16] LABS: Apearance,Urine Slightly Hazy (Clear); Bilirubin,Urine Negative (Negative); Blood, Urine Negative (Negative); Glucose,Urine (UA) Negative (Negative); Ketones,Urine Negative (Negative); Mucus,Urine Occasional /LPF (Occasional); Nitrite,Urine Negative (Negative); Protein,Urine Negative; RBC,Urine 1 /HPF (0-4); Squamous Epithelial Cell,Urine Occasional /HPF (0-10); Urine Color Yellow (Yellow); Urine Specific Gravity 1.009 (1.001-1.035); Urine Urobilinogen < 2.0 EU/DL (0.2-1.0); WBC,Urine <1 /HPF (0-6)
--- NOTE | 2017-02-27 15:25 | Hospitalist Progress Note ---
Assessment and Plan (1) Acute on chronic diastolic CHF (congestive heart failure), NYHA class 3 Status: Acute Assessment and plan: Continue metoprolol and continue Lasix 40 mg IV twice a day. Current Visit: Yes (2) Acute on chronic renal insufficiency Status: Acute Assessment and plan: Baseline creatinine was 2.4 that patient had a heart cath on January 23, 2017 and now his creatinine is up to 5. Patient will have to receive IV Lasix due to his pulmonary edema we will continue to monitor his BMP daily. Dr. Corona consulting Current Visit: Yes (3) Anemia Status: Acute Assessment and plan: 2 units of PRBC on plavix and eliquis, Dr. Kennedy to see, 1+ occult blood in stool, cont protonix Current Visit: Yes (4) Chest pressure Status: Acute Assessment and plan: Serial troponins mildly elevated. Cardiology is seen him and does not think further interventions warranted. Lalitha he had a recent heart cath in January. Current Visit: Yes (5) Constipation Status: Acute Assessment and plan: Patient has had 2 bowel movements with the lactulose but I have asked nursing to continue to give that as he has significant amounts of stool. Current Visit: Yes Hospitalist: Subjective Interval history: Patient has very short of breath. Patient has had a recent cath and is on both Plavix and Eliquis. He will get 2 units of packed red blood cells today. I am concerned about him continuing on blood thinners without knowing the source of his bleeding. I will asked Dr. Kennedy to see him today. I recognize that they cannot do any procedures if patient is actively on these blood thinners. Dr. Yepez does not feel that his chest pain is cardiac. Patient is stable and belong on telemetry but they do not have beds Exam - Constitutional Vitals: Period Temp Pulse Resp BP Sys/Faulkner Pulse Ox Last 24 Hr 96.5 F-97.9 F 53-78 16-25 120-153/59-83 93-100 Exam: Heart Rate-[RRR] Lungs-[diminished ] GI-[+bs soft, NT] Ext-[2+ edema] Neuro [Motor 5/5], [alert and oriented times 3] psych [normal mood and affect] General [no acute distress] Results - Labs CBC & BMP: 02/27/17 09:33 09/13/17 00:27 Lab Results: I have reviewed the past 24 hour labs - Diagnostic Findings Procedure: Ultrasound: report reviewed by me, pending (Ultrasound of the pelvis showed only 221 mL's of urine. Mild gallbladder wall thickening without evidence of cholelithiasis. Diffuse fatty liver with medical renal disease.), X -ray: report reviewed by me (Moderate to large amount of stool in the distal colon and rectum)
[2017-02-27] MEDS ORDERED: FUROSEMIDE 40 MG/4 ML VIAL IV ONE (18:24)
[2017-02-27] MEDS: FAMOTIDINE 20 MG TABLET PO SCH ×2 (19:08→20:08)
[2017-02-27] MEDS: methylPREDNISolone SOD SUC 40 MG/1 ML VIAL IV SCH (19:08)
[2017-02-27] MEDS: ALBUTEROL/IPRATROPIUM 3 ML NEB RESP TX SCH ×2 (20:06→23:10)
[2017-02-27] MEDS: POLYETHYLENE GLYCOL POWDER 17 GM PACK PO SCH (20:09)
[2017-02-27] MEDS ORDERED: ROSUVASTATIN 20 MG TABLET PO SCH ×3 (21:00)
[2017-02-27] MEDS ORDERED: APIXABAN 2.5 MG TABLET PO SCH (21:00)
[2017-02-28] MEDS: INSULIN LISPRO 100 UNIT/ML SUBCUT SCH ×4 (00:41→17:35)
[2017-02-28] MEDS: ALBUTEROL/IPRATROPIUM 3 ML NEB RESP TX SCH ×6 (02:29→23:00)
[2017-02-28] MEDS: methylPREDNISolone SOD SUC 40 MG/1 ML VIAL IV SCH ×2 (03:45→15:50)
[2017-02-28 05:38] LABS: Basophils % 0.2 % (0.0-0.8); Hemoglobin 8.6 GM/DL (14.0-18.0); Immature Granulocytes % 0.6 %; Immature Granulocytes Absolute 0.04 #; Lymphocytes # 0.2 10*3/uL (1.4-4.0); Lymphocytes % 2.4 % (21.2-54.2); Mean Corpuscular HGB Conc 33.1 GM/DL (32-36); Mean Corpuscular Hemoglobin 27 PG (27-34); Mean Corpuscular Volume 81.5 FL (87-102); Mean Platelet Volume 11.8 FL (9.6-12.0); Monocytes # 0.2 10*3/uL (0.11-0.8); Monocytes % 3.6 % (1.7-12.7); Neutrophils # 5.8 10*3/uL (1.4-7.4); Neutrophils % 93.2 % (38.7-73.9); Platelet Count 146 T/CUMM (130-400); Red Blood Count 3.19 MC/CUMM (3.8-5.5); Red Cell Distribution Width 14.8 % (9.3-17.3); White Blood Count 6.2 T/CUMM (4-12)
[2017-02-28 06:02] LABS: Giant Platelets Few; Hypochromasia 1+; Lymphocytes 1 % (20-55); Ovalocytes Slight; Platelet Estimate Normal; Segmented Neutrophils 97 % (50-85); Total Cells Counted 100
[2017-02-28 06:14] LABS: Calcium 8.1 MG/DL (8.5-10.1); Magnesium 5.1 MG/DL (1.8-2.4); Osmolality,Calculated 316.8 MOS/KG (273-304); Potassium 4.3 MMOL/L (3.5-5.1)
[2017-02-28 09:25] LABS: Hemoglobin A1 (Alkaline) 97.7 % (96.5-98.5); Hemoglobin A2 (Alkaline) 2.3 % (1.5-3.5)
[2017-02-28] MEDS: ASPIRIN 325 MG TABLET PO SCH (09:36)
[2017-02-28] MEDS: METOPROLOL TARTRATE 25 MG TABLET PO SCH ×2 (09:37→21:06)
[2017-02-28] MEDS: PANTOPRAZOLE 40 MG TABLET PO SCH (09:37)
[2017-02-28] MEDS: INSULIN GLARGINE 100 UNIT/ML SUBCUT SCH (09:37)
[2017-02-28] MEDS: FAMOTIDINE 20 MG TABLET PO SCH ×2 (09:37→21:07)
[2017-02-28] MEDS: FUROSEMIDE 40 MG/4 ML VIAL IV SCH ×2 (09:38→15:50)
[2017-02-28] MEDS: POLYETHYLENE GLYCOL POWDER 17 GM PACK PO SCH ×3 (09:38→21:06)
--- NOTE | 2017-02-28 11:31 | Hospitalist Progress Note ---
Assessment and Plan (1) Acute on chronic diastolic CHF (congestive heart failure), NYHA class 3 Status: Acute Assessment and plan: Patient given extra doses of Lasix last night. His volume overload has improved. Current Visit: Yes (2) Acute on chronic renal insufficiency Status: Acute Assessment and plan: Normal improvement. Current Visit: Yes (3) Anemia Status: Acute Assessment and plan: Still losing blood continue Protonix, continue to recommend holding Plavix and Eliquis Current Visit: Yes (4) Chest pressure Status: Acute Assessment and plan: Serial troponins mildly elevated. No evidence of acute PA Current Visit: Yes (5) Constipation Status: Acute Assessment and plan: Resolved Current Visit: Yes Hospitalist: Subjective Interval history: Hemoglobin barely improved with 2 units of packed red blood cells. Patient continued to lose blood. I am not comfortable with him being on Plavix and Eliquis. I will give him an aspirin for his recent stents. Discussed with Gifty urena from cardiology. Patient reports he is breathing much easier today. His wheezing and tightness has resolved. His crackles are gone. Exam - Constitutional Vitals: Period Temp Pulse Resp BP Sys/Faulkner Pulse Ox Last 24 Hr 96.7 F-99.4 F 59-73 14-25 126-159/55-90 92-99 Exam: Heart Rate-[RRR] Lungs-[clear] GI-[+bs soft, NT] Ext-[1+ edema] Neuro [Motor 5/5], [alert and oriented times 3] psych [normal mood and affect] General [no acute distress] Results - Labs CBC & BMP: 02/28/17 04:32 02/28/17 04:32 Lab Results: I have reviewed the past 24 hour labs
[2017-02-28] MEDS ORDERED: FLUTICASONE 50 MCG NASAL SPRAY 16 GM BOTTLE BOTH NARES PRN (11:32)
--- NOTE | 2017-02-28 11:47 | Gastrointestinal Progress Note ---
Assessment and Plan (1) Anemia Status: Acute Assessment and plan: 02/28-no complaints of abdominal pain. H&H holding at present time. No overt bleeding noted. Stools 1+ for occult blood. Blood thinners held with last dose of Plavix on yesterday. Plan an addendum to follow Dr. Kennedy. 02/27-Admitted with abdominal pain and chest pain with findings of HH of 01/06 without overt bleeding. No known prior history of anemia in past. Being transfused 2 units PRBC today. Stools 1+ positive for occult blood. Prior colonoscopy in 2014 with only finding of internal hemorrhoids. Abdominal xray shows moderate to large amount of stool in distal colon and rectum. Continue to monitor at this time. Plan and addendum to follow by Dr Kennedy. Current Visit: Yes Gastroenterology - PN: Subj Interval history: CC: Anemia Patient is seen, awake and alert sitting up in bed. States he is feeling better today. He denies any abdominal pain, nausea or vomiting. He did have a good bowel movement on yesterday. Denies any overt bleeding. He was noted to be 1+ positive stools for occult blood. He is tolerating his diet well at this time. Abdomen is soft, nontender. His blood thinners are held at this time however he did receive a dose of Plavix on yesterday. H&H is stable at 02/09. He has received a total of 2 units of packed red blood cells with minimal increase in his H&H. ROS: Denies shortness of breath or chest pain Exam (Progress Note) - Constitutional Vitals: Period Temp Pulse Resp BP Sys/Faulkner Pulse Ox Last 24 Hr 96.7 F-99.4 F 59-73 14-25 116-159/55-90 92-99 - Other Additional findings: General appearance: normal weight, no acute distress - Head Head exam: Present: normal inspection, normocephalic - Eye Eye exam: Present: other (Lids and conjunctive are unremarkable). Absent: scleral icterus - ENT ENT exam: Present: normal exam, normal oropharynx - Neck Neck exam: Present: normal inspection - Respiratory Respiratory exam: Present: clear to auscultation bilaterally. Absent: rales, rhonchi, wheezes - Cardiovascular Cardiovascular exam: Present: regular rate and rhythm. Absent: diastolic murmur , JVD, systolic murmur - GI/Abdominal GI/Abdominal exam: Present: normal bowel sounds, soft. Absent: ascites, distended, mass, organomegaly, tenderness - Extremities Exam Extremities exam: Present: normal inspection, full ROM - Back Exam Back exam: Present: normal inspection - Neurological Exam Neurological exam: Present: alert, oriented X3 - Psychiatric Psychiatric exam: Present: normal affect, normal mood - Skin Skin exam: Present: normal color, warm, dry Results - Labs CBC & BMP: 02/28/17 04:32 02/28/17 04:32 Lab Results: I have reviewed the past 24 hour labs
[2017-02-28] MEDS ORDERED: ROSUVASTATIN 20 MG TABLET PO SCH (12:00)
--- NOTE | 2017-02-28 12:20 | Cardiology Progress Note ---
Assessment and Plan - Time spent with patient Time spent with patient: Greater than 30 minutes (1) Acute on chronic renal insufficiency Status: Acute Assessment and plan: SEE PLAN OF CARE LISTED BELOW Current Visit: Yes (2) Pulmonary hypertension Status: Chronic Assessment and plan: SEE PLAN OF CARE LISTED BELOW Current Visit: Yes (3) Acute on chronic diastolic CHF (congestive heart failure), NYHA class 3 Status: Acute Assessment and plan: SEE PLAN OF CARE LISTED BELOW Current Visit: Yes (4) Diabetes mellitus Status: Chronic Assessment and plan: SEE PLAN OF CARE LISTED BELOW Current Visit: No Qualifiers: (5) Dyslipidemia Status: Chronic Assessment and plan: SEE PLAN OF CARE LISTED BELOW Current Visit: No (6) Obesity Status: Chronic Assessment and plan: SEE PLAN OF CARE LISTED BELOW Current Visit: No Qualifiers: Body mass index: BMI 33.0-33.9 (7) Hypertension Status: Chronic Assessment and plan: SEE PLAN OF CARE LISTED BELOW Current Visit: No (8) Elevated troponin Status: Chronic Assessment and plan: SEE PLAN OF CARE LISTED BELOW Current Visit: No (9) GLORIA (obstructive sleep apnea) Status: Chronic Assessment and plan: SEE PLAN OF CARE LISTED BELOW Current Visit: No (10) Constipation Status: Acute Assessment and plan: SEE PLAN OF CARE LISTED BELOW Current Visit: Yes (11) CAD (coronary artery disease) Status: Chronic Assessment and plan: SEE PLAN OF CARE LISTED BELOW Current Visit: Yes (12) Anemia Status: Acute Assessment and plan: SEE PLAN OF CARE LISTED BELOW Current Visit: Yes Cardiology - PN: Subj Interval history: 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 OSPINA Patient is being seen in the CCU SUMMARY: Mr. Marquez, 66BM, routinely followed by Dr. Ospina. Risk factors include: Known CAD (S/P STEMI with PCI-right PDA January 23, 2017), hypertension, dyslipidemia, diabetes, sedentary lifestyle, obesity. History of atrial fibrillation (taking Eliquis 2.5 twice daily for stroke prevention). Of note, patient was hospitalized February 02, 2017 for atrial fibrillation with rapid ventricular response. After reviewing the record, I do not see where he was placed on Eliquis nor discharged on Eliquis however, according to clinic notes from February 15, [address] Ospina patient was taking 2.5 mg Eliquis twice daily, Plavix 75 mg orally daily and no Aspirin. Echocardiogram 01/23/2017: EF 60%, mild mitral regurgitation, PAP 62 mmHg. Admitted February 26, 2017 with complaints of abdominal pressure. Found to be significantly anemic while taking Plavix and (low-dose) Eliquis. Troponin mildly elevated however improved and is trending down from prior hospitalizations. EKG is stable. This is not acute [place]. Kidney function has worsened and nephrology is following. He is not taking nephrotoxic medications that we are aware of. 2016: Overnight, patient had worsening shortness of breath and was given additional Lasix. Diuresed well and is breathing better this morning. Unfortunately, patient may not stop Plavix given his recent stent placement. His Eliquis has been on hold since admission. Gastroenterology is seeing patient. I suspect he will require endoscopy but Plavix may NOT be held per Dr. Yepez. IMPRESSION/PLAN: 1. ABOMDINAL PAIN - gastroenterology has been consulted. KUB reveals constipation however he is extremely bloated. Has transaminitis. Holding any hepatotoxic medications such as lipid-lowering agent. 2. ELEVATED TROPONIN - this is not acute [place]. Troponin is actually lower than it has been on prior admissions. 3. KNOWN CAD WITH RECENT PCI - January 23, 2017 STEMI requiring PCI to the right PDA. Continue Plavix 4. HYPERTENSION - adequately controlled with addition of Metoprolol. Would adjust medications accordingly during hospital stay. 5. DYSLIPIDEMIA - will hold his lipid-lowering agent given his transaminitis 6. ANEMIA - minimal improvement only after transfusion yesterday. Eliquis is been discontinued but cannot stop Plavix. 7. ACUTE ON CHRONIC RENAL INSUFFICIENCY, STAGE III - he is on no nephrotoxic medications. Renal ultrasound is been ordered to rule out obstruction. Avoiding nephrotoxic meds such as ROBERT inhibitors. 8. ATRIAL FIBRILLATION - rate controlled. Has been taking low-dose Eliquis for stroke prevention however given his severe anemia. Eliquis has been held. Discontinue use of Sotalol given the patient's severe renal insufficiency 9. CONSTIPATION - laxatives as needed. Had a bowel movement last evening. 10. PULMONARY HYPERTENSION - this may be right-sided heart failure. PAP 62 mmHg on last echo approximately 6 weeks ago. Continue with diuretics as necessary. 11. ACUTE ON CHRONIC CHF - secondary to diastolic dysfunction, NYHA class III, EF 60%. Continue with beta blockade, diuretics. Cannot introduce an ROBERT inhibitor due to severe renal insufficiency 12. OBSTRUCTIVE SLEEP APNEA - will ask his to bring sleep device to use each evening Exam (Progress Note) - Constitutional Vitals: Period Temp Pulse Resp BP Sys/Faulkner Pulse Ox Last 24 Hr 96.7 F-99.4 F 59-73 14-25 116-159/55-90 92-99 Exam: General: [Appears well with no apparent distress.] [Pleasant and cooperative. ] [Appears comfortable.] HEENT: [PERRL, normocephalic, atraumatic. Mucous membranes moist. No jaundice noted. Conjunctiva moist and clear, sclerae anicteric] Neck: Unable to assess for JVD due to habitus. No thyromegaly or lymphadenopathy noted. No carotid bruit appreciated Cardiac: [Regular rate and rhythm.] [No murmur rub or gallop.] Lungs: [Clear to auscultation without accessory muscle use to assist the respiratory pattern.] Oxygen in use via nasal cannula intermittently Abdomen: Soft, less protuberant. Bowel sounds normoactive. Nontender and nondistended. No abdominal bruit or thrill noted. No masses noted. Musculoskeletal: No fluid collection. Decreased range of motion is noted. Extremities: No clubbing, cyanosis noted. [1+ bilateral lower extremity edema. ] Upper extremity pulses 2+. Lower extremity pulses 2+. Capillary refill less than 3 seconds. Skin: No unusual lesions or rashes. No skin breakdown appreciated. Neuro: Awake, alert and oriented 3. Moves all extremities well without hemiparesis or paralysis. No essential tremor is appreciated. Result/EKG - Labs CBC & BMP: 02/28/17 04:32 02/28/17 04:32 Lab Results: I have reviewed the past 24 hour labs Labs: Laboratory Results - last 24 hr 02/27/17 02/27/17 02/27/17 09:33 09:33 09:33 WBC RBC Hgb Hct MCV MCH MCHC RDW Plt Count MPV Neut % (Auto) Lymph % (Auto) [place] % (Auto) Eos % (Auto) Baso % (Auto) Neut # (Auto) Lymph # (Auto) [place] # (Auto) Eos # (Auto) Baso # (Auto) Total Counted Immature Gran % Nucleated RBC % Immature Gran # Segmented Neutrophils Lymphocytes Monocytes Nucleated RBCs # Anemia Panel Interp Platelet Estimate Giant Platelets Immature Plt Fraction Hypochromasia Ovalocytes Hemoglobin A1 97.7 Hemoglobin A2 2.3 Hgb ELP Interp Sodium Potassium Chloride Carbon Dioxide Anion Gap BUN Creatinine GFR Calculation BUN/Creatinine Ratio Glucose POC Glucose Calculated Osmolality Calcium Magnesium Urine Color Urine Appearance Urine pH Ur Specific [place] Urine Protein Urine Glucose (UA) Urine Ketones Urine Blood Urine Nitrate Urine Bilirubin Urine Urobilinogen Urine Leukocytes Urine RBC Urine WBC Ur Squamous Epith Cells Urine Mucus Ur Culture Indicated? Blood Type O POSITIVE Antibody Screen Negative Crossmatch See Detail 02/27/17 02/27/17 02/27/17 13:21 14:40 17:22 WBC RBC Hgb Hct MCV MCH MCHC RDW Plt Count MPV Neut % (Auto) Lymph % (Auto) [place] % (Auto) Eos % (Auto) Baso % (Auto) Neut # (Auto) Lymph # (Auto) [place] # (Auto) Eos # (Auto) Baso # (Auto) Total Counted Immature Gran % Nucleated RBC % Immature Gran # Segmented Neutrophils Lymphocytes Monocytes Nucleated RBCs # Anemia Panel Interp Platelet Estimate Giant Platelets Immature Plt Fraction Hypochromasia Ovalocytes Hemoglobin A1 Hemoglobin A2 Hgb ELP Interp Sodium Potassium Chloride Carbon Dioxide Anion Gap BUN Creatinine GFR Calculation BUN/Creatinine Ratio Glucose POC Glucose 87 143 H Calculated Osmolality Calcium Magnesium Urine Color Yellow Urine Appearance Slightly hazy Urine pH 5.0 Ur Specific [place] 1.009 Urine Protein Negative Urine Glucose (UA) Negative Urine Ketones Negative Urine Blood Negative Urine Nitrate Negative Urine Bilirubin Negative Urine Urobilinogen < 2.0 H Urine Leukocytes Negative Urine RBC 1 Urine WBC <1 Ur Squamous Epith Cells Occasional Urine Mucus Occasional Ur Culture Indicated? Not indicated Blood Type Antibody Screen Crossmatch 02/27/17 02/28/17 02/28/17 23:58 04:32 04:32 WBC 6.2 D RBC 3.19 L Hgb 8.6 L Hct 26.0 L MCV 81.5 L MCH 27 MCHC 33.1 RDW 14.8 Plt Count 146 MPV 11.8 Neut % (Auto) 93.2 H Lymph % (Auto) 2.4 L [place] % (Auto) 3.6 Eos % (Auto) 0.0 Baso % (Auto) 0.2 Neut # (Auto) 5.8 Lymph # (Auto) 0.2 L [place] # (Auto) 0.2 Eos # (Auto) 0.0 Baso # (Auto) 0.0 Total Counted 100 Immature Gran % 0.6 Nucleated RBC % 0.0 Immature Gran # 0.04 Segmented Neutrophils 97 H Lymphocytes 1 L Monocytes 2 Nucleated RBCs # 0.00 Anemia Panel Interp Platelet Estimate Normal Giant Platelets Few Immature Plt Fraction 0.0 Hypochromasia 1+ Ovalocytes Slight Hemoglobin A1 Hemoglobin A2 Hgb ELP Interp Sodium 137 Potassium 4.3 Chloride 99 Carbon Dioxide 26 Anion Gap 16.3 H BUN 117 H Creatinine 4.80 H GFR Calculation 18 BUN/Creatinine Ratio 24.00 H Glucose 230 H POC Glucose 191 H Calculated Osmolality 316.8 H Calcium 8.1 L Magnesium 5.1 H Urine Color Urine Appearance Urine pH Ur Specific [place] Urine Protein Urine Glucose (UA) Urine Ketones Urine Blood Urine Nitrate Urine Bilirubin Urine Urobilinogen Urine Leukocytes Urine RBC Urine WBC Ur Squamous Epith Cells Urine Mucus Ur Culture Indicated? Blood Type Antibody Screen Crossmatch 02/28/17 06:22 WBC RBC Hgb Hct MCV MCH MCHC RDW Plt Count MPV Neut % (Auto) Lymph % (Auto) [place] % (Auto) Eos % (Auto) Baso % (Auto) Neut # (Auto) Lymph # (Auto) [place] # (Auto) Eos # (Auto) Baso # (Auto) Total Counted Immature Gran % Nucleated RBC % Immature Gran # Segmented Neutrophils Lymphocytes Monocytes Nucleated RBCs # Anemia Panel Interp Platelet Estimate Giant Platelets Immature Plt Fraction Hypochromasia Ovalocytes Hemoglobin A1 Hemoglobin A2 Hgb ELP Interp Sodium Potassium Chloride Carbon Dioxide Anion Gap BUN Creatinine GFR Calculation BUN/Creatinine Ratio Glucose POC Glucose 271 H Calculated Osmolality Calcium Magnesium Urine Color Urine Appearance Urine pH Ur Specific [place] Urine Protein Urine Glucose (UA) Urine Ketones Urine Blood Urine Nitrate Urine Bilirubin Urine Urobilinogen Urine Leukocytes Urine RBC Urine WBC Ur Squamous Epith Cells Urine Mucus Ur Culture Indicated? Blood Type Antibody Screen Crossmatch - Diagnostic Findings Procedure: Chest x-ray: report reviewed by me - EKG EKG results: interpreted by me EKG shows: sinus rhythm
[2017-02-28] MEDS: BISACODYL 5 MG TABLET PO SCH (13:07)
[2017-02-28] MEDS: CLOPIDOGREL 75 MG TABLET PO SCH (13:07)
[2017-03-01] MEDS: INSULIN LISPRO 100 UNIT/ML SUBCUT SCH ×4 (00:11→17:30)
[2017-03-01] MEDS: ALBUTEROL/IPRATROPIUM 3 ML NEB RESP TX SCH ×6 (02:55→23:38)
[2017-03-01] MEDS: methylPREDNISolone SOD SUC 40 MG/1 ML VIAL IV SCH (03:29)
[2017-03-01 05:00] LABS: Hematocrit 26.8 VOL% (42.0-52.0); Hemoglobin 9.2 GM/DL (14.0-18.0); Immature Granulocytes % 0.3 %; Immature Granulocytes Absolute 0.02 #; Lymphocytes # 0.2 10*3/uL (1.4-4.0); Lymphocytes % 3.6 % (21.2-54.2); Mean Corpuscular HGB Conc 34.3 GM/DL (32-36); Mean Corpuscular Hemoglobin 28 PG (27-34); Mean Corpuscular Volume 80.7 FL (87-102); Monocytes # 0.3 10*3/uL (0.11-0.8); Monocytes % 5.6 % (1.7-12.7); Neutrophils # 5.3 10*3/uL (1.4-7.4); Neutrophils % 90.5 % (38.7-73.9); Platelet Count 155 T/CUMM (130-400); Red Blood Count 3.32 MC/CUMM (3.8-5.5); Red Cell Distribution Width 15.3 % (9.3-17.3); White Blood Count 5.9 T/CUMM (4-12)
[2017-03-01 05:24] LABS: Calcium 8.5 MG/DL (8.5-10.1); Osmolality,Calculated 319.4 MOS/KG (273-304); Potassium 4.2 MMOL/L (3.5-5.1)
[2017-03-01 05:30] LABS: Giant Platelets Few; Hypochromasia 1+; Lymphocytes 4 % (20-55); Ovalocytes Slight; Platelet Estimate Normal; Segmented Neutrophils 91 % (50-85); Total Cells Counted 100
[2017-03-01] MEDS ORDERED: APIXABAN 5 MG TABLET PO SCH (09:30)
[2017-03-01] MEDS: DOCUSATE SODIUM 100 MG CAPSULE PO PRN (09:46)
[2017-03-01] MEDS: CLOPIDOGREL 75 MG TABLET PO SCH (09:47)
[2017-03-01] MEDS: PANTOPRAZOLE 40 MG TABLET PO SCH (09:47)
[2017-03-01] MEDS: FAMOTIDINE 20 MG TABLET PO SCH ×2 (09:47→21:36)
[2017-03-01] MEDS: METOPROLOL TARTRATE 25 MG TABLET PO SCH (09:47)
[2017-03-01] MEDS: POLYETHYLENE GLYCOL POWDER 17 GM PACK PO SCH ×3 (09:48→21:33)
[2017-03-01] MEDS: FUROSEMIDE 40 MG/4 ML VIAL IV SCH ×2 (09:48→16:15)
[2017-03-01] MEDS: BISACODYL 5 MG TABLET PO SCH (10:04)
[2017-03-01] MEDS: INSULIN GLARGINE 100 UNIT/ML SUBCUT SCH (10:04)
[2017-03-01] MEDS: APIXABAN 2.5 MG TABLET PO SCH ×2 (10:10→21:34)
--- NOTE | 2017-03-01 10:48 | Gastrointestinal Progress Note ---
Assessment and Plan (1) Anemia Status: Acute Assessment and plan: 03/01-H&H is 03/12 without overt bleeding. No further bowel movement since yesterday. To have enema today. Plan an addendum to follow Dr. Kennedy. 02/28-no complaints of abdominal pain. H&H holding at present time. No overt bleeding noted. Stools 1+ for occult blood. Blood thinners held with last dose of Plavix on yesterday. Plan an addendum to follow Dr. Kennedy. 02/27-Admitted with abdominal pain and chest pain with findings of HH of 01/06 without overt bleeding. No known prior history of anemia in past. Being transfused 2 units PRBC today. Stools 1+ positive for occult blood. Prior colonoscopy in 2014 with only finding of internal hemorrhoids. Abdominal xray shows moderate to large amount of stool in distal colon and rectum. Continue to monitor at this time. Plan and addendum to follow by Dr Kennedy. Current Visit: Yes Gastroenterology - PN: Subj Interval history: CC: Anemia Patient is seen awake and alert, sitting up in bed. States he is feeling better at this time. He is having some continued abdominal distention and discomfort but states it is slightly improved. He is not passing any flatus but did have a bowel movement on yesterday. There is no reports of overt bleeding. He is to have an enema this morning to help facilitate more of a bowel movement. He is tolerating his diet well at this time. Abdomen is distended, tympanic with bowel sounds noted. ROS: Denies shortness of breath or chest pain Exam (Progress Note) - Constitutional Vitals: Period Temp Pulse Resp BP Sys/Faulkner Pulse Ox Last 24 Hr 97.2 F-98.6 F 59-71 14-25 114-156/59-81 92-100 - Other Additional findings: General appearance: normal weight, no acute distress - Head Head exam: Present: normal inspection, normocephalic - Eye Eye exam: Present: other (Lids and conjunctive are unremarkable). Absent: scleral icterus - ENT ENT exam: Present: normal exam, normal oropharynx - Neck Neck exam: Present: normal inspection - Respiratory Respiratory exam: Present: clear to auscultation bilaterally. Absent: rales, rhonchi, wheezes - Cardiovascular Cardiovascular exam: Present: regular rate and rhythm. Absent: diastolic murmur , JVD, systolic murmur - GI/Abdominal GI/Abdominal exam: Present: normal bowel sounds, soft, tympanic. Absent: ascites, distended, mass, organomegaly, tenderness - Extremities Exam Extremities exam: Present: normal inspection, full ROM - Back Exam Back exam: Present: normal inspection - Neurological Exam Neurological exam: Present: alert, oriented X3 - Psychiatric Psychiatric exam: Present: normal affect, normal mood - Skin Skin exam: Present: normal color, warm, dry Results - Labs CBC & BMP: 03/01/17 03:55 03/01/17 03:55 Lab Results: I have reviewed the past 24 hour labs
--- NOTE | 2017-03-01 11:46 | Cardiology Progress Note ---
Assessment and Plan (1) Acute on chronic renal insufficiency Status: Acute Assessment and plan: SEE PLAN OF CARE LISTED BELOW Current Visit: Yes (2) Pulmonary hypertension Status: Chronic Assessment and plan: SEE PLAN OF CARE LISTED BELOW Current Visit: Yes (3) Acute on chronic diastolic CHF (congestive heart failure), NYHA class 3 Status: Acute Assessment and plan: SEE PLAN OF CARE LISTED BELOW Current Visit: Yes (4) Diabetes mellitus Status: Chronic Assessment and plan: SEE PLAN OF CARE LISTED BELOW Current Visit: No Qualifiers: (5) Dyslipidemia Status: Chronic Assessment and plan: SEE PLAN OF CARE LISTED BELOW Current Visit: No (6) Obesity Status: Chronic Assessment and plan: SEE PLAN OF CARE LISTED BELOW Current Visit: No Qualifiers: Body mass index: BMI 33.0-33.9 (7) Hypertension Status: Chronic Assessment and plan: SEE PLAN OF CARE LISTED BELOW Current Visit: No (8) Elevated troponin Status: Chronic Assessment and plan: SEE PLAN OF CARE LISTED BELOW Current Visit: No (9) GLORIA (obstructive sleep apnea) Status: Chronic Assessment and plan: SEE PLAN OF CARE LISTED BELOW Current Visit: No (10) Constipation Status: Acute Assessment and plan: SEE PLAN OF CARE LISTED BELOW Current Visit: Yes (11) CAD (coronary artery disease) Status: Chronic Assessment and plan: SEE PLAN OF CARE LISTED BELOW Current Visit: Yes (12) Anemia Status: Acute Assessment and plan: SEE PLAN OF CARE LISTED BELOW Current Visit: Yes Cardiology - PN: Subj Interval history: 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 OSPINA Patient is being seen in the CCU SUMMARY: Mr. Marquez, 66BM, routinely followed by Dr. Ospina. Risk factors include: Known CAD (S/P STEMI with PCI-right PDA January 23, 2017), hypertension, dyslipidemia, diabetes, sedentary lifestyle, obesity. History of atrial fibrillation (taking Eliquis 2.5 twice daily for stroke prevention). Of note, patient was hospitalized February 02, 2017 for atrial fibrillation with rapid ventricular response. After reviewing the record, I do not see where he was placed on Eliquis nor discharged on Eliquis however, according to clinic notes from February 15, [address] Ospina patient was taking 2.5 mg Eliquis twice daily, Plavix 75 mg orally daily and no Aspirin. Echocardiogram 01/23/2017: EF 60%, mild mitral regurgitation, PAP 62 mmHg. Admitted February 26, 2017 with complaints of abdominal pressure. Found to be significantly anemic while taking Plavix and (low-dose) Eliquis. Troponin mildly elevated however improved and is trending down from prior hospitalizations. EKG is stable. This is not acute [place]. Kidney function has worsened and nephrology is following. He is not taking nephrotoxic medications that we are aware of. 2016: Overnight, patient had worsening shortness of breath and was given additional Lasix. Diuresed well and is breathing better this morning. Unfortunately, patient may not stop Plavix given his recent stent placement. His Eliquis has been on hold since admission. Gastroenterology is seeing patient. I suspect he will require endoscopy but Plavix may NOT be held per Dr. Yepez. 2016: Sitting up comfortably in the bed. Denies chest pain, heaviness or tightness. Breathing is nonlabored off oxygen. Abdomen is tight and he is awaiting an enema this morning. Anemia is stable overnight. Creatinine is basically unchanged at 4.6. No arrhythmias noted. At this time, Aspirin and Plavix continues (recent PCI with ANGELA). Aspirin and Plavix must be continued unless nonreversible, high bleeding risk etiology is discovered. Per Dr. Yepez, will hold anticoagulation (Eliquis) due to severe anemia. Statin is also being withheld at this time due to mildly elevated LFTs. Patient continues to have significant lower extremity edema. Today, increase Metoprolol and decrease Nifedipine in an effort to possibly wean off and hopefully improve his lower extremity swelling. Will further discuss with Dr. Yepez and await additional recommendations. IMPRESSION/PLAN: 1. ABOMDINAL PAIN - gastroenterology has been consulted. Remains distended with mild transaminitis. Holding any hepatotoxic medications such as lipid- lowering agent. 2. ELEVATED TROPONIN - this is not acute [place]. Troponin is actually lower than it has been on prior admissions. 3. KNOWN CAD WITH RECENT PCI - January 23, 2017 STEMI requiring PCI to the right PDA. Continue Plavix, Aspirin. 4. HYPERTENSION - increase Metoprolol tartrate and decrease Nifedipine. 5. DYSLIPIDEMIA - will hold his lipid-lowering agent given his transaminitis 6. ANEMIA - minimal improvement only after transfusion Saturday. Continue dual antiplatelet therapy. 7. ACUTE ON CHRONIC RENAL INSUFFICIENCY, STAGE III - he is on no nephrotoxic medications. Renal ultrasound revealed no obstruction. Avoiding nephrotoxic meds such as ROBERT inhibitors. 8. ATRIAL FIBRILLATION - rate controlled. Eliquis has been held. Discontinue use of Sotalol given the patient's severe renal insufficiency 9. CONSTIPATION - laxatives as needed. Enema this morning. 10. PULMONARY HYPERTENSION - this may be right-sided heart failure. PAP 62 mmHg on last echo approximately 6 weeks ago. Continue with diuretics as necessary. 11. ACUTE ON CHRONIC CHF - secondary to diastolic dysfunction, NYHA class III, EF 60%. Continue with beta blockade, diuretics. Cannot introduce an ROBERT inhibitor due to severe renal insufficiency 12. OBSTRUCTIVE SLEEP APNEA - continue to use each evening. 13. EDEMA - decreasing Nifidipine today, would like to wean off. Exam (Progress Note) - Constitutional Vitals: Period Temp Pulse Resp BP Sys/Faulkner Pulse Ox Last 24 Hr 97.2 F-98.6 F 59-71 14-25 114-156/59-81 92-100 Exam: General: [Appears well with no apparent distress.] [Pleasant and cooperative. ] [Appears comfortable.] HEENT: [PERRL, normocephalic, atraumatic. Mucous membranes moist. No jaundice noted. Conjunctiva moist and clear, sclerae anicteric] Neck: Unable to assess for JVD due to habitus. No thyromegaly or lymphadenopathy noted. No carotid bruit appreciated Cardiac: [Regular rate and rhythm.] [No murmur rub or gallop.] Lungs: [Clear to auscultation without accessory muscle use to assist the respiratory pattern.] Not using oxygen at this time Abdomen: Soft, less protuberant. Bowel sounds normoactive. Nontender and nondistended. No abdominal bruit or thrill noted. No masses noted. Musculoskeletal: No fluid collection. Decreased range of motion is noted. Extremities: No clubbing, cyanosis noted. [2+ bilateral lower extremity edema. ] Upper extremity pulses 2+. Lower extremity pulses 1+. Capillary refill less than 3 seconds. Skin: Several small open sores noted to bilateral lower extremities, worse on left lower extremity. No skin breakdown appreciated. Neuro: Awake, alert and oriented 3. Moves all extremities well without hemiparesis or paralysis. No essential tremor is appreciated. Result/EKG - Labs CBC & BMP: 03/01/17 03:55 03/01/17 03:55 Lab Results: I have reviewed the past 24 hour labs Labs: Laboratory Results - last 24 hr 02/28/17 02/28/17 03/01/17 12:43 17:33 00:08 WBC RBC Hgb Hct MCV MCH MCHC RDW Plt Count MPV Neut % (Auto) Lymph % (Auto) [place] % (Auto) Eos % (Auto) Baso % (Auto) Neut # (Auto) Lymph # (Auto) [place] # (Auto) Eos # (Auto) Baso # (Auto) Total Counted Immature Gran % Nucleated RBC % Immature Gran # Segmented Neutrophils Lymphocytes Monocytes Nucleated RBCs # Platelet Estimate Giant Platelets Immature Plt Fraction Hypochromasia Ovalocytes Sodium Potassium Chloride Carbon Dioxide Anion Gap BUN Creatinine GFR Calculation BUN/Creatinine Ratio Glucose POC Glucose 225 H 100 224 H Calculated Osmolality Calcium Magnesium 03/01/17 03/01/17 03/01/17 03:55 03:55 05:52 WBC 5.9 RBC 3.32 L Hgb 9.2 L Hct 26.8 L MCV 80.7 L MCH 28 MCHC 34.3 RDW 15.3 Plt Count 155 MPV 12.0 Neut % (Auto) 90.5 H Lymph % (Auto) 3.6 L [place] % (Auto) 5.6 Eos % (Auto) 0.0 Baso % (Auto) 0.0 Neut # (Auto) 5.3 Lymph # (Auto) 0.2 L [place] # (Auto) 0.3 Eos # (Auto) 0.0 Baso # (Auto) 0.0 Total Counted 100 Immature Gran % 0.3 Nucleated RBC % 0.0 Immature Gran # 0.02 Segmented Neutrophils 91 H Lymphocytes 4 L Monocytes 5 Nucleated RBCs # 0.00 Platelet Estimate Normal Giant Platelets Few Immature Plt Fraction 0.0 Hypochromasia 1+ Ovalocytes Slight Sodium 140 Potassium 4.2 Chloride 103 Carbon Dioxide 26 Anion Gap 15.2 H BUN 116 H Creatinine 4.60 H GFR Calculation 19 BUN/Creatinine Ratio 25.00 H Glucose 164 H POC Glucose 160 H Calculated Osmolality 319.4 H Calcium 8.5 Magnesium 5.0 H 03/01/17 07:47 WBC RBC Hgb Hct MCV MCH MCHC RDW Plt Count MPV Neut % (Auto) Lymph % (Auto) [place] % (Auto) Eos % (Auto) Baso % (Auto) Neut # (Auto) Lymph # (Auto) [place] # (Auto) Eos # (Auto) Baso # (Auto) Total Counted Immature Gran % Nucleated RBC % Immature Gran # Segmented Neutrophils Lymphocytes Monocytes Nucleated RBCs # Platelet Estimate Giant Platelets Immature Plt Fraction Hypochromasia Ovalocytes Sodium Potassium Chloride Carbon Dioxide Anion Gap BUN Creatinine GFR Calculation BUN/Creatinine Ratio Glucose POC Glucose 120 H Calculated Osmolality Calcium Magnesium - EKG EKG results: interpreted by me EKG shows: sinus rhythm
--- NOTE | 2017-03-01 13:34 | Ultrasound Report ---
Venous Doppler ultrasound bilateral lower extremities Indication: Edema Comparison: None available Findings: No evidence of echogenic, noncompressible thrombus seen in the visualized veins of the extremities. Color Doppler venous waveform pattern is within normal limits. Impression: No evidence of deep venous thrombosis. Ultrasound images stored and captured. PROCEDURE INTERPRETED AT [facility] DEPARTMENT OF RADIOLOGY Final Report Signed by: Dr. Tomás Vaz
--- NOTE | 2017-03-01 15:44 | Hospitalist Progress Note ---
Assessment and Plan (1) Acute on chronic diastolic CHF (congestive heart failure), NYHA class 3 Status: Acute Assessment and plan: Continue diuresis with Lasix Current Visit: Yes (2) Acute on chronic renal insufficiency Status: Acute Assessment and plan: Continue to have small improvement. Current Visit: Yes (3) Anemia Status: Acute Assessment and plan: Hemoglobin improved. Spoke with Dr. Kennedy does not plan to intervene. Will restart Eliquis and Plavix Current Visit: Yes (4) Chest pressure Status: Acute Assessment and plan: Serial troponins mildly elevated. No evidence of acute OK Current Visit: Yes (5) Constipation Status: Acute Assessment and plan: Continue MiraLAX, soapsuds enema, Dulcolax Current Visit: Yes (6) GLORIA (obstructive sleep apnea) Status: Acute Assessment and plan: cpap at bedtime Current Visit: Yes Hospitalist: Subjective Interval history: Continue attempts to wean off oxygen. We are still awaiting a monitored bed. Patient has for an enema today we will give him a soapsuds. He would like PT and OT to see him today. May need rehab. Will restart his Eliquis and Plavix today as his hemoglobin is stable and GI does not plan to intervene. Exam - Constitutional Vitals: Period Temp Pulse Resp BP Sys/Faulkner Pulse Ox Last 24 Hr 97.2 F-98.6 F 61-71 14-24 122-156/61-81 92-100 Exam: Heart Rate-[RRR] Lungs-[clear] GI-[+bs soft, NT] Ext-[1+ edema] Neuro [Motor 5/5], [alert and oriented times 3] psych [normal mood and affect] General [no acute distress] Results - Labs CBC & BMP: 03/01/17 03:55 03/01/17 03:55 Lab Results: I have reviewed the past 24 hour labs
--- NOTE | 2017-03-01 17:08 | Nephrology Progress Note ---
Nephrology - PN: Subj Interval history: This is a late entry note for 02/28/2017 He states his breathing is slightly better than yesterday. He denies chest pain. Exam (PN)-Nephrology - Vital Signs Vital signs: Period Temp Pulse Resp BP Sys/Falukner Pulse Ox Last 24 Hr 97.2 F-98.6 F 61-71 14-24 122-156/61-81 92-100 Exam: ENT: Normal Cardiovascular: Regular rate and rhythm. No murmur rub or gallop Lungs: Clear Extremities: 2 Plus edema - Lab 03/01/17 03:55 03/01/17 03:55 Most recent lab results Calcium 8.5 MG/DL (8.5-10.1) 03/01/17 03:55 Magnesium 5.0 MG/DL (1.8-2.4) H 03/01/17 03:55 Assessment and Plan (1) Acute on chronic renal insufficiency Status: Chronic Assessment and plan: 66-year-old man with: * CRF stage III. Creatinine 2.4 last month * Acute on chronic renal failure. No obstruction on ultrasound. Renal function stable from yesterday * Volume overload. He has borderline CHF but significant peripheral edema. Weight is 3 kg higher than 1 month ago. Recommend discontinuing minoxidil.. He is receiving Lasix IV * CAD. Cardiac cath with stents 01/23/2017 * Constipation * Anemia. He is to be transfused * Diabetes mellitus Current Visit: No (2) CAD (coronary artery disease) Status: Chronic Current Visit: Yes (3) Anemia Status: Acute Current Visit: Yes (4) Constipation Status: Acute Current Visit: Yes (5) Coronary artery disease Status: Chronic Current Visit: No (6) Diabetes mellitus Status: Chronic Current Visit: No Qualifiers: (7) Hypertension Status: Chronic Current Visit: No
--- NOTE | 2017-03-01 17:09 | Nephrology Progress Note ---
Nephrology - PN: Subj Interval history: He feels better overall today. Less S OB. Less abdominal discomfort Exam (PN)-Nephrology - Vital Signs Vital signs: Period Temp Pulse Resp BP Sys/Faulkner Pulse Ox Last 24 Hr 97.2 F-98.6 F 61-71 14-24 122-156/61-81 92-100 Exam: Gen.: Alert and oriented x3. ENT: Pupils equal round reactive to light. EOMs intact. Mucous membranes moist. Neck: Supple. No JVD or bruit. Cardiovascular: Regular rate and rhythm. No murmur rub or gallop Lungs: Clear Abdomen: Soft. Mildly distended y Extremities: 2+ edema - Lab 03/01/17 03:55 03/01/17 03:55 Most recent lab results Calcium 8.5 MG/DL (8.5-10.1) 03/01/17 03:55 Magnesium 5.0 MG/DL (1.8-2.4) H 03/01/17 03:55 Assessment and Plan (1) Acute on chronic renal insufficiency Status: Chronic Assessment and plan: 66-year-old man with: * CRF stage III. Creatinine 2.4 last month * Acute on chronic renal failure. No obstruction on ultrasound. Renal function slowly improving. Fluid balance negative * Volume overload. He has borderline CHF but significant peripheral edema. Weight is 3 kg higher than 1 month ago. Recommend discontinuing minoxidil.. He is receiving Lasix IV. Fluid balance negative * CAD. Cardiac cath with stents 01/23/2017 * Constipation * Anemia. He is to be transfused * Diabetes mellitus Current Visit: No (2) CAD (coronary artery disease) Status: Chronic Current Visit: Yes (3) Anemia Status: Acute Current Visit: Yes (4) Constipation Status: Acute Current Visit: Yes (5) Coronary artery disease Status: Chronic Current Visit: No (6) Diabetes mellitus Status: Chronic Current Visit: No Qualifiers: (7) Hypertension Status: Chronic Current Visit: No
[2017-03-01] MEDS: METOPROLOL TARTRATE 50 MG TABLET PO SCH (21:36)
[2017-03-02] MEDS: ALBUTEROL/IPRATROPIUM 3 ML NEB RESP TX SCH ×6 (03:07→23:48)
[2017-03-02] MEDS: INSULIN LISPRO 100 UNIT/ML SUBCUT SCH ×4 (05:13→17:32)
[2017-03-02] MEDS: ASPIRIN 325 MG TABLET PO SCH (07:00)
[2017-03-02 07:03] LABS: Basophils % 0.3 % (0.0-0.8); Eosinophils # 0.1 10*3/uL (0.0-0.87); Hematocrit 25.8 VOL% (42.0-52.0); Hemoglobin 8.6 GM/DL (14.0-18.0); Immature Granulocytes % 0.3 %; Immature Granulocytes Absolute 0.02 #; Lymphocytes # 0.4 10*3/uL (1.4-4.0); Lymphocytes % 7.3 % (21.2-54.2); Mean Corpuscular HGB Conc 33.3 GM/DL (32-36); Mean Corpuscular Hemoglobin 27 PG (27-34); Mean Corpuscular Volume 81.4 FL (87-102); Mean Platelet Volume 11.3 FL (9.6-12.0); Monocytes # 0.7 10*3/uL (0.11-0.8); Monocytes % 12.6 % (1.7-12.7); Neutrophils # 4.5 10*3/uL (1.4-7.4); Neutrophils % 77.5 % (38.7-73.9); Platelet Count 150 T/CUMM (130-400); Red Blood Count 3.17 MC/CUMM (3.8-5.5); Red Cell Distribution Width 15.4 % (9.3-17.3); White Blood Count 5.9 T/CUMM (4-12)
[2017-03-02 07:38] LABS: Calcium 8.5 MG/DL (8.5-10.1); Magnesium 4.4 MG/DL (1.8-2.4); Osmolality,Calculated 315.1 MOS/KG (273-304); Potassium 3.3 MMOL/L (3.5-5.1)
[2017-03-02 07:41] LABS: Albumin 3.3 G/DL (3.4-5.0); Bilirubin,Direct 0.24 MG/DL (0.0-0.20); Bilirubin,Indirect 0.8 MG/DL (0.0-1.0)
[2017-03-02] MEDS: BISACODYL 5 MG TABLET PO SCH (08:33)
[2017-03-02] MEDS: INSULIN GLARGINE 100 UNIT/ML SUBCUT SCH (08:33)
[2017-03-02] MEDS: APIXABAN 2.5 MG TABLET PO SCH ×2 (08:33→20:43)
[2017-03-02] MEDS: CLOPIDOGREL 75 MG TABLET PO SCH (08:33)
[2017-03-02] MEDS: PANTOPRAZOLE 40 MG TABLET PO SCH (08:33)
[2017-03-02] MEDS: POLYETHYLENE GLYCOL POWDER 17 GM PACK PO SCH ×3 (08:33→20:42)
[2017-03-02] MEDS: FAMOTIDINE 20 MG TABLET PO SCH ×2 (08:33→20:42)
[2017-03-02] MEDS: METOPROLOL TARTRATE 50 MG TABLET PO SCH ×2 (08:33→20:42)
[2017-03-02] MEDS: FUROSEMIDE 40 MG/4 ML VIAL IV SCH ×2 (09:01→16:35)
[2017-03-02] MEDS: methylPREDNISolone SOD SUC 40 MG/1 ML VIAL IV SCH (09:08)
--- NOTE | 2017-03-02 11:53 | Nephrology Progress Note ---
Nephrology - PN: Subj Interval history: Mr. Marquez is seen in follow-up of his acute on chronic renal failure. He is improved with his creatinine now down to 4.2 his legs remain edematous but he is not short of breath. His chest is clear. He remains on Lasix 40 mg twice daily. Exam (PN)-Nephrology - Vital Signs Vital signs: Period Temp Pulse Resp BP Sys/Faulkner Pulse Ox Last 24 Hr 97.0 F-98.4 F 58-73 16-24 124-154/67-78 92-99 - Lab 03/02/17 06:32 03/02/17 06:32 Most recent lab results Calcium 8.5 MG/DL (8.5-10.1) 03/02/17 06:32 Magnesium 4.4 MG/DL (1.8-2.4) H 03/02/17 06:32
--- NOTE | 2017-03-02 11:54 | Event Note ---
Pt is off the floor. 66-year-old black male, followed by Dr. Ospina. He was admitted with worsening shortness of breath, edema. Acute kidney injury, on chronic kidney disease. Recent PCI/01/2017. Worsening anemia. History of atrial fibrillation , for which he was anticoagulated with Eliquis. Currently, there is no ACS. Ejection fraction was preserved on recent evaluation. -CAD. There was no ACS. Cont aspirin, Plavix, for recent PCI. The dual antiplatelets can only be stopped, if non-reversible, high bleeding risk etiology is found. -1+ guaiac positive stool. EGD planned. No cardiac contrainditions. -Acute kidney injury, improving. Diuretics managed by renal. -Paroxysmal atrial fibrillation. I would hold off anticoagulation at this time given his comorbidities, and continue to use dual antiplatelets for recent PCI. -Hold statin, mildly elevated LFTs, improving.
--- NOTE | 2017-03-02 16:39 | Hospitalist Progress Note ---
Assessment and Plan (1) Acute on chronic systolic (congestive) heart failure Status: Acute Assessment and plan: Continue current management. Patient seem to be responding to treatment with reassess the patient in the morning Current Visit: Yes (2) Chronic anemia Status: Acute Current Visit: Yes (3) Acute on chronic renal insufficiency Status: Chronic Current Visit: No (4) GLORIA (obstructive sleep apnea) Status: Chronic Assessment and plan: Continue current management Current Visit: No Hospitalist: Subjective Interval history: Patient seen interviewed and examined and chart has been reviewed. The central brought to the floor from the intensive care unit medical problems including acute on chronic congestive heart failure acute on chronic renal insufficiency anemia chronic chest pressures constipation obstructive sleep apnea and obesity Exam - Constitutional Vitals: Period Temp Pulse Resp BP Sys/Faulkner Pulse Ox Last 24 Hr 97.0 F-98.4 F 58-73 16-20 124-154/67-76 92-99 General appearance: morbidly obese - Head Head exam: Present: normocephalic - Eye Eye exam: Present: EOMI Pupils: Present: LEON - Respiratory Respiratory exam: Present: clear to auscultation bilaterally - Cardiovascular Cardiovascular exam: Present: regular rate and rhythm - Extremities Exam Extremities exam: Present: full ROM, other - Neurological Exam Neurological exam: Present: alert, oriented X3, CN II-XII intact Results - Labs CBC & BMP: 03/02/17 06:32 03/02/17 06:32 Lab Results: I have reviewed the past 24 hour labs (They do modest hypokalemia that will be supplemented per protocol. Sugar was also low at 69 g percent with a)
[2017-03-03] MEDS: ALBUTEROL/IPRATROPIUM 3 ML NEB RESP TX SCH ×6 (03:41→23:49)
[2017-03-03] MEDS: INSULIN LISPRO 100 UNIT/ML SUBCUT SCH ×4 (04:04→17:23)
[2017-03-03 07:01] LABS: Basophils % 0.2 % (0.0-0.8); Eosinophils # 0.1 10*3/uL (0.0-0.87); Eosinophils % 1.6 % (0.00-10.9); Hematocrit 26.7 VOL% (42.0-52.0); Hemoglobin 8.9 GM/DL (14.0-18.0); Immature Granulocytes % 0.3 %; Immature Granulocytes Absolute 0.02 #; Lymphocytes # 0.4 10*3/uL (1.4-4.0); Lymphocytes % 6.3 % (21.2-54.2); Mean Corpuscular HGB Conc 33.3 GM/DL (32-36); Mean Corpuscular Hemoglobin 27 PG (27-34); Mean Corpuscular Volume 81.7 FL (87-102); Mean Platelet Volume 11.5 FL (9.6-12.0); Monocytes # 0.7 10*3/uL (0.11-0.8); Monocytes % 11.1 % (1.7-12.7); Neutrophils % 80.5 % (38.7-73.9); Platelet Count 158 T/CUMM (130-400); Red Blood Count 3.27 MC/CUMM (3.8-5.5); Red Cell Distribution Width 15.8 % (9.3-17.3); White Blood Count 6.2 T/CUMM (4-12)
[2017-03-03 07:32] LABS: Calcium 8.4 MG/DL (8.5-10.1); Magnesium 3.6 MG/DL (1.8-2.4); Osmolality,Calculated 317.3 MOS/KG (273-304); Potassium 3.4 MMOL/L (3.5-5.1)
[2017-03-03] MEDS: DOCUSATE SODIUM 100 MG CAPSULE PO PRN (09:12)
[2017-03-03] MEDS: METOPROLOL TARTRATE 50 MG TABLET PO SCH ×2 (09:12→20:37)
[2017-03-03] MEDS: APIXABAN 2.5 MG TABLET PO SCH (09:12)
[2017-03-03] MEDS: FAMOTIDINE 20 MG TABLET PO SCH ×2 (09:12→20:37)
[2017-03-03] MEDS: PANTOPRAZOLE 40 MG TABLET PO SCH (09:12)
[2017-03-03] MEDS: methylPREDNISolone SOD SUC 40 MG/1 ML VIAL IV SCH (09:13)
[2017-03-03] MEDS: FUROSEMIDE 40 MG/4 ML VIAL IV SCH ×2 (09:13→16:19)
[2017-03-03] MEDS: BISACODYL 5 MG TABLET PO SCH (09:13)
[2017-03-03] MEDS: CLOPIDOGREL 75 MG TABLET PO SCH (09:13)
[2017-03-03] MEDS: POLYETHYLENE GLYCOL POWDER 17 GM PACK PO SCH ×3 (09:13→20:36)
[2017-03-03] MEDS: INSULIN GLARGINE 100 UNIT/ML SUBCUT SCH (09:14)
--- NOTE | 2017-03-03 09:28 | Nephrology Progress Note ---
Nephrology - PN: Subj Interval history: Mr. Marquez is seen in follow-up of his acute renal impairment. He is improving with a falling creatinine now down to 3.7. He still has considerable lower extremity edema and is gaining weight. We will increase his Lasix from 40 mg IV q. 12-80 mg every 12. His chest is clear and he sitting in a chair in no distress Exam (PN)-Nephrology - Vital Signs Vital signs: Period Temp Pulse Resp BP Sys/Faulkner Pulse Ox Last 24 Hr 97.6 F-98.2 F 62-92 18-22 120-143/64-74 90-99 - Lab 03/03/17 06:40 03/03/17 06:40 Most recent lab results Calcium 8.4 MG/DL (8.5-10.1) L 03/03/17 06:40 Magnesium 3.6 MG/DL (1.8-2.4) H 03/03/17 06:40
--- NOTE | 2017-03-03 12:23 | Cardiology Progress Note ---
Assessment and Plan (1) Acute on chronic renal insufficiency Status: Chronic Assessment and plan: 66-year-old black male, followed by Dr. Ospina. He was admitted with worsening shortness of breath, edema. Acute kidney injury, on chronic kidney disease. Recent PCI/01/2017. Worsening anemia. History of AFL, for which he was anticoagulated with Eliquis. Currently, there is no ACS. Ejection fraction was preserved on recent evaluation. -CAD. There was no ACS. Cont aspirin, Plavix, for recent PCI. The dual antiplatelets can only be stopped, if non-reversible, high bleeding risk etiology is found. -Reviewed all available EKGs and telemetry tracings from [facility] and [facility]. 2 EKGs suspicious for flutter, with 2-1 conduction, or ST. No recent recurrence of atrial sustained tachyarrhythmia recently. I recommend dual antiplatelets at this point, and holding off Eliquis. There is also history atrial fibrillation , for which I did not find EKG documentation -Severe CKD limits antiarrhythmic options. I suggest not to resume sotalol. Continue beta-cesar and increase dose as tolerated. If the flutter recurs, ablation as an option -Minoxidil was stopped, as was thought to contribute to his lower extremity swelling -1+ guaiac positive stool. EGD planned. No cardiac contrainditions. -Acute kidney injury, improving. Diuretics managed by renal. -Hold statin, mildly elevated LFTs, improving. Current Visit: No Cardiology - PN: Subj Interval history: His breathing is better. Still, C3 4+ lower extremity edema, with shallow ulcers and oozing. Blood pressure, heart rate well controlled. Exam (Progress Note) - Constitutional Vitals: Period Temp Pulse Resp BP Sys/Faulkner Pulse Ox Last 24 Hr 97.6 F-98.2 F 62-92 18-22 120-143/64-73 90-99 General appearance: no acute distress, morbidly obese - Head Head exam: Present: normal inspection. Absent: contusion - Eye Eye exam: Absent: periorbital swelling, scleral icterus, laceration to eyelids Pupils: Absent: dilated - ENT ENT exam: Present: normal external ear exam - Neck Neck exam: Present: normal inspection, other (Thickness) - Respiratory Respiratory exam: Present: decreased breath sounds. Absent: accessory muscle use - Cardiovascular Cardiovascular exam: Present: JVD, regular rate and rhythm, systolic murmur, other (Unable to assess JVD) - GI/Abdominal GI/Abdominal exam: Present: normal bowel sounds. Absent: distended, firm - Extremities Exam Extremities exam: Present: normal capillary refill, edema (34+ edema, oozing, shallow ulcers) - Neurological Exam Neurological exam: Present: alert, oriented X3 - Psychiatric Psychiatric exam: Present: normal affect, normal mood - Skin Skin exam: Present: normal color, warm. Absent: cyanosis Result/EKG - Labs CBC & BMP: 03/03/17 06:40 03/03/17 06:40 Lab Results: I have reviewed the past 24 hour labs Labs: Laboratory Results - last 24 hr 03/02/17 03/02/17 03/02/17 07:42 10:50 17:23 WBC RBC Hgb Hct MCV MCH MCHC RDW Plt Count MPV Neut % (Auto) Lymph % (Auto) [place] % (Auto) Eos % (Auto) Baso % (Auto) Neut # (Auto) Lymph # (Auto) [place] # (Auto) Eos # (Auto) Baso # (Auto) Immature Gran % Nucleated RBC % Immature Gran # Nucleated RBCs # Immature Plt Fraction Sodium Potassium Chloride Carbon Dioxide Anion Gap BUN Creatinine GFR Calculation BUN/Creatinine Ratio Glucose POC Glucose 106 135 H 239 H Calculated Osmolality Calcium Magnesium 03/03/17 03/03/17 03/03/17 06:18 06:40 06:40 WBC 6.2 RBC 3.27 L Hgb 8.9 L Hct 26.7 L MCV 81.7 L MCH 27 MCHC 33.3 RDW 15.8 Plt Count 158 MPV 11.5 Neut % (Auto) 80.5 H Lymph % (Auto) 6.3 L [place] % (Auto) 11.1 Eos % (Auto) 1.6 Baso % (Auto) 0.2 Neut # (Auto) 5.0 Lymph # (Auto) 0.4 L [place] # (Auto) 0.7 Eos # (Auto) 0.1 Baso # (Auto) 0.0 Immature Gran % 0.3 Nucleated RBC % 0.0 Immature Gran # 0.02 Nucleated RBCs # 0.00 Immature Plt Fraction 0.0 Sodium 141 Potassium 3.4 L Chloride 104 Carbon Dioxide 27 Anion Gap 13.4 BUN 99 H Creatinine 3.70 H GFR Calculation 25 BUN/Creatinine Ratio 26.00 H Glucose 206 H POC Glucose 238 H Calculated Osmolality 317.3 H Calcium 8.4 L Magnesium 3.6 H - EKG EKG results: interpreted by me
--- NOTE | 2017-03-03 15:07 | Hospitalist Progress Note ---
Assessment and Plan (1) Acute on chronic systolic (congestive) heart failure Status: Acute Assessment and plan: Continue current management. Patient seem to be responding to treatment with reassess the patient in the morning. Lasix has been increased to 40 minute grams IV twice a day. My expectation is that he should respond better. Nephrology input appreciated Current Visit: Yes (2) Chronic anemia Status: Acute Assessment and plan: Secondary to renal failure, chronic blood loss cannot be ruled out. Hematocrit now stable. Current Visit: Yes (3) Acute on chronic renal insufficiency Status: Chronic Assessment and plan: Patient has azotemia continues to improve Current Visit: No (4) GLORIA (obstructive sleep apnea) Status: Chronic Assessment and plan: Continue current management Current Visit: No (5) Hypokalemia Status: Acute Assessment and plan: Supplement per protocol. Magnesium was active on the high side at this point. Repeat BMP and magnesium in the morning Current Visit: Yes (6) A-fib Status: Acute Assessment and plan: Patient is back on Eliquis. Check H&H in the morning Current Visit: Yes Hospitalist: Subjective Interval history: Patient has been seen interviewed and examined and chart has been reviewed. In general he seems to be doing better in regard to the issues of acute pulmonary edema and respiratory problems. He still has a profound leg edema is seen at the attention paid to this issue of edema by nephrology. Dose of Lasix has now been increased to 40 mg IV twice a day. Hopefully this will not cause worsening azotemia. BUN at this point is 99 with a creatinine down to 3.7. His sugar is relatively elevated 206 today. Point of care checks was 238 at bedtime. Exam - Constitutional Vitals: Period Temp Pulse Resp BP Sys/Faulkner Pulse Ox Last 24 Hr 97.6 F-99.8 F 62-92 18-22 120-145/64-81 90-99 General appearance: morbidly obese - Head Head exam: Present: normocephalic, atraumatic - Eye Eye exam: Present: EOMI Pupils: Present: LEON - ENT ENT exam: Present: normal exam - Neck Neck exam: Present: normal inspection - Respiratory Respiratory exam: Present: clear to auscultation bilaterally (Bibasilar rales not no wheeze or crackles and no rhonchi) - Cardiovascular Cardiovascular exam: Present: regular rate and rhythm (The patient was noted to have 4 beats of V. tach at one point is were recorded. Again his electrolytes are of concern to make sure that potassium was supplemented. Check magnesium 2) Results - Labs CBC & BMP: 03/03/17 06:40 03/03/17 06:40 Lab Results: I have reviewed the past 24 hour labs
[2017-03-03] MEDS: POTASSIUM CHLORIDE 20 MEQ TABLET PO PRN (16:19)
[2017-03-03] MEDS: ASPIRIN EC 81 MG TABLET PO SCH (16:19)
[2017-03-04] MEDS: INSULIN LISPRO 100 UNIT/ML SUBCUT SCH ×4 (00:34→17:38)
[2017-03-04] MEDS: ALBUTEROL/IPRATROPIUM 3 ML NEB RESP TX SCH ×6 (04:10→23:40)
[2017-03-04 07:21] LABS: Eosinophils # 0.2 10*3/uL (0.0-0.87); Eosinophils % 4.4 % (0.00-10.9); Hematocrit 25.4 VOL% (42.0-52.0); Hematocrit 25.7 VOL% (42.0-52.0); Hemoglobin 8.4 GM/DL (14.0-18.0); Hemoglobin 8.6 GM/DL (14.0-18.0); Immature Granulocytes % 0.4 %; Immature Granulocytes Absolute 0.02 #; Lymphocytes # 0.3 10*3/uL (1.4-4.0); Lymphocytes % 5.7 % (21.2-54.2); Mean Corpuscular HGB Conc 33.9 GM/DL (32-36); Mean Corpuscular Hemoglobin 28 PG (27-34); Mean Corpuscular Volume 82.2 FL (87-102); Mean Platelet Volume 11.1 FL (9.6-12.0); Monocytes # 0.5 10*3/uL (0.11-0.8); Monocytes % 8.5 % (1.7-12.7); Neutrophils # 4.4 10*3/uL (1.4-7.4); Platelet Count 157 T/CUMM (130-400); Red Blood Count 3.09 MC/CUMM (3.8-5.5); Red Cell Distribution Width 15.7 % (9.3-17.3); White Blood Count 5.4 T/CUMM (4-12)
[2017-03-04 07:42] LABS: Calcium 8.5 MG/DL (8.5-10.1); Magnesium 3.1 MG/DL (1.8-2.4); Osmolality,Calculated 315.7 MOS/KG (273-304); Potassium 3.5 MMOL/L (3.5-5.1)
--- NOTE | 2017-03-04 08:45 | Gastrointestinal Progress Note ---
<MattVera Moi - Last Filed: 03/04/17 08:42> Assessment and Plan (1) Anemia Status: Acute Assessment and plan: 03/04-H&H stable 02/08. Stools are negative for occult blood. Denies abdominal pain. Having bowel movements now. Tolerating diet. Continue to monitor at this time. Plan an addendum to followed by Dr. Kennedy. 03/01-H&H is 03/12 without overt bleeding. No further bowel movement since yesterday. To have enema today. Plan an addendum to follow Dr. Kennedy. 02/28-no complaints of abdominal pain. H&H holding at present time. No overt bleeding noted. Stools 1+ for occult blood. Blood thinners held with last dose of Plavix on yesterday. Plan an addendum to follow Dr. Kennedy. 02/27-Admitted with abdominal pain and chest pain with findings of HH of 01/06 without overt bleeding. No known prior history of anemia in past. Being transfused 2 units PRBC today. Stools 1+ positive for occult blood. Prior colonoscopy in 2014 with only finding of internal hemorrhoids. Abdominal xray shows moderate to large amount of stool in distal colon and rectum. Continue to monitor at this time. Plan and addendum to follow by Dr Kennedy. Current Visit: Yes Gastroenterology - PN: Subj Interval history: CC: Anemia Patient seen awake alert ambulating in room. States that he is feeling some better today. He states he is having bowel movements at this time and his abdominal pain is improved as well. He denies any overt bleeding. He is noted to have negative stools for occult blood. H&H is holding at 02/08. He says his appetite is improving as well and denies any nausea vomiting. Abdomen is soft, nontender. Patient is noted to have a very large fluid-filled blister to his right inner thigh. He states that this occurred overnight. Spoke with Dr. Dietrich regarding this and he will address this. ROS: Denies shortness of breath or chest pain Exam (Progress Note) - Constitutional Vitals: Period Temp Pulse Resp BP Sys/Faulkner Pulse Ox Last 24 Hr 98.1 F-99.8 F 64-84 17-20 124-155/58-85 91-99 General appearance: normal weight, no acute distress - Head Head exam: Present: normal inspection, normocephalic - Eye Eye exam: Present: other (Lids and conjunctivae are unremarkable). Absent: scleral icterus - ENT ENT exam: Present: normal exam, normal oropharynx - Neck Neck exam: Present: normal inspection - Respiratory Respiratory exam: Present: clear to auscultation bilaterally. Absent: rales, rhonchi, wheezes - Cardiovascular Cardiovascular exam: Present: regular rate and rhythm. Absent: diastolic murmur , JVD, systolic murmur - GI/Abdominal GI/Abdominal exam: Present: normal bowel sounds, soft. Absent: ascites, distended, mass, organomegaly, tenderness - Extremities Exam Extremities exam: Present: normal inspection, full ROM - Back Exam Back exam: Present: normal inspection - Neurological Exam Neurological exam: Present: alert, oriented X3 - Psychiatric Psychiatric exam: Present: normal affect, normal mood - Skin Skin exam: Present: normal color, warm, dry Results - Labs CBC & BMP: 03/04/17 07:05 03/04/17 07:05 Lab Results: I have reviewed the past 24 hour labs <Nickolas Kennedy - Last Filed: 03/04/17 13:39> Exam (Progress Note) - Constitutional Vitals: Period Temp Pulse Resp BP Sys/Faulkner Pulse Ox Last 24 Hr 97.7 F-98.9 F 59-84 16-20 124-155/58-85 90-99 Results - Labs CBC & BMP: 03/04/17 07:05 03/04/17 07:05
[2017-03-04] MEDS: FUROSEMIDE 40 MG/4 ML VIAL IV SCH ×2 (10:19→15:51)
[2017-03-04] MEDS: methylPREDNISolone SOD SUC 40 MG/1 ML VIAL IV SCH (10:19)
[2017-03-04] MEDS: ASPIRIN EC 81 MG TABLET PO SCH (10:20)
[2017-03-04] MEDS: BISACODYL 5 MG TABLET PO SCH (10:20)
[2017-03-04] MEDS: CLOPIDOGREL 75 MG TABLET PO SCH (10:20)
[2017-03-04] MEDS: METOPROLOL TARTRATE 50 MG TABLET PO SCH ×2 (10:21→21:00)
[2017-03-04] MEDS: POLYETHYLENE GLYCOL POWDER 17 GM PACK PO SCH (10:21)
[2017-03-04] MEDS: PANTOPRAZOLE 40 MG TABLET PO SCH (10:21)
[2017-03-04] MEDS: FAMOTIDINE 20 MG TABLET PO SCH ×2 (10:21→21:00)
[2017-03-04] MEDS: INSULIN GLARGINE 100 UNIT/ML SUBCUT SCH (10:22)
--- NOTE | 2017-03-04 12:48 | Cardiology Progress Note ---
Assessment and Plan - Time spent with patient Time spent with patient: Greater than 30 minutes (1) Acute on chronic renal insufficiency Status: Acute Assessment and plan: Creatinine is improving. This morning noted to be 3.4. Nephrology is following. We are avoiding ROBERT inhibitors for fear of worsening his renal insufficiency. Continue to monitor his labs daily Current Visit: Yes (2) Pulmonary hypertension Status: Chronic Assessment and plan: PAP 62 mmHg. This may be contributing to right-sided heart failure. Continue with current plan of care. Current Visit: Yes (3) Acute on chronic diastolic CHF (congestive heart failure), NYHA class 3 Status: Acute Assessment and plan: Acute on chronic CHF secondary to diastolic dysfunction, [place] Heart Association Classification III. Continue with beta-blockers. Avoiding ROBERT inhibitors for fear of worsening renal insufficiency. He is taking Hydralazine , adding isosorbide mononitrate today. Continue strict I&O and daily weights. Current Visit: Yes (4) Diabetes mellitus Status: Chronic Assessment and plan: Blood glucose levels are now better controlled over the weekend. Continue use of sliding scale insulin adjusting to continue with good control. Current Visit: No Qualifiers: (5) Dyslipidemia Status: Chronic Assessment and plan: Holding patient's lipid-lowering agent due to elevated LFTs. Hopefully, once this has improved, we can reintroduce a statin drug. Current Visit: No (6) Obesity Status: Chronic Assessment and plan: He has received dietary counseling for his morbid obesity. Current Visit: No Qualifiers: Body mass index: BMI 33.0-33.9 (7) Hypertension Status: Chronic Assessment and plan: Over the weekend, blood pressures appear to be well controlled. This morning, systolic blood pressures in the 150s. Will continue to monitor this and we may be required to adjust his medications for better blood pressure control. Recently, Nifedipine dose was decreased to monitor its effect on edema of his lower extremities. There is been little improvement in lower extremity edema, therefore I will increase Nifedipine to original dose of 90mg daily. Current Visit: No (8) Elevated troponin Status: Chronic Assessment and plan: This is not acute MO. Patient has elevated troponin however, the troponin is lower than it has been on prior admissions. Current Visit: No (9) GLORIA (obstructive sleep apnea) Status: Chronic Assessment and plan: Patient does have sleep apnea and uses device at home. He has been using this during the hospital stay as well. Current Visit: No (10) Constipation Status: Acute Assessment and plan: This seems to be improving though he is still significantly distended. Recent KUB continue to reveal moderate amount of stool. MiraLAX continues. Current Visit: Yes (11) CAD (coronary artery disease) Status: Chronic Assessment and plan: See recent heart catheterization report. Continue aspirin, Plavix and beta cesar. Holding statins due to transaminitis. Holding ROBERT inhibitor due to fear of worsening renal insufficiency. Current Visit: Yes (12) Anemia Status: Acute Assessment and plan: Eliquis has been discontinued. He did require transfusion since he has been hospitalized this admission. Needs for GI workup and will undergo EGD soon. Current Visit: Yes (13) Abdominal pain Status: Acute Assessment and plan: Pain has improved though he remains distended. It is noted that Dr. Kennedy would like to proceed with EGD soon. Unfortunately, cannot stop Plavix for possible biopsies. Will further discuss with Dr. Ken regarding timing of EGD. Current Visit: Yes (14) A-fib Status: Chronic Assessment and plan: Patient was previously taking sotalol. However, given his severe renal insufficiency his sotalol has been discontinued. Eliquis has been discontinued due to his severe anemia. Current Visit: Yes Cardiology - PN: Subj Interval history: WEATHERIZATION OPERATIONS MANAGER: DR. OSPINA SUMMARY: Mr. Marquez, 66BM, routinely followed by Dr. Ospina. Risk factors include: Known CAD (S/P STEMI with PCI-right PDA January 23, 2017), hypertension, dyslipidemia, diabetes, sedentary lifestyle, obesity. History of atrial fibrillation(on admission patient was taking Eliquis 2.5 twice daily for stroke prevention). Echocardiogram 01/23/2017: EF 60%, mild mitral regurgitation , PAP 62 mmHg. Admitted February 26, 2017 with complaints of abdominal pressure. Cardiology was consulted as it was reported that the patient was having chest pressure. In retrospect, patient was having significant complaints of abdominal pressure. Troponin was mildly elevated on admission however, troponin was actually lower this admission than on prior admissions. This is not acute MO. Patient was found to be significantly anemic while taking Plavix and (low-dose) Eliquis. Eliquis was discontinued given his heme positive stools. 2016: Over the weekend, patient has had numerous bowel movements and his previously positive heme stools are now negative. Dr. Kennedy would like to proceed with EGD when cardiology believes it is stable to proceed with such. Unfortunately, we will be unable to hold his Plavix for this procedure. Abdomen, though distended, is less distended on this morning's exam. Lipid- lowering agent being held due to mildly elevated LFTs. Creatinine continues to improve and is decreasing at 3.4 today. Exam (Progress Note) - Constitutional Vitals: Period Temp Pulse Resp BP Sys/Faulkner Pulse Ox Last 24 Hr 98.1 F-98.9 F 59-84 16-20 124-155/58-85 90-99 Result/EKG - Labs CBC & BMP: 03/04/17 07:05 03/04/17 07:05 Labs: Laboratory Results - last 24 hr 03/03/17 03/03/17 03/03/17 11:18 16:18 17:12 WBC RBC Hgb Hct MCV MCH MCHC RDW Plt Count MPV Neut % (Auto) Lymph % (Auto) [place] % (Auto) Eos % (Auto) Baso % (Auto) Neut # (Auto) Lymph # (Auto) [place] # (Auto) Eos # (Auto) Baso # (Auto) Immature Gran % Nucleated RBC % Immature Gran # Nucleated RBCs # Immature Plt Fraction Sodium Potassium Chloride Carbon Dioxide Anion Gap BUN Creatinine GFR Calculation BUN/Creatinine Ratio Glucose POC Glucose 197 H 325 H 346 H Calculated Osmolality Calcium Magnesium 03/04/17 03/04/17 03/04/17 05:47 06:02 07:05 WBC 5.4 RBC 3.09 L Hgb 8.6 L Hct 25.4 L MCV 82.2 L MCH 28 MCHC 33.9 RDW 15.7 Plt Count 157 MPV 11.1 Neut % (Auto) 81.0 H Lymph % (Auto) 5.7 L [place] % (Auto) 8.5 Eos % (Auto) 4.4 Baso % (Auto) 0.0 Neut # (Auto) 4.4 Lymph # (Auto) 0.3 L [place] # (Auto) 0.5 Eos # (Auto) 0.2 Baso # (Auto) 0.0 Immature Gran % 0.4 Nucleated RBC % 0.0 Immature Gran # 0.02 Nucleated RBCs # 0.00 Immature Plt Fraction 0.0 Sodium Potassium Chloride Carbon Dioxide Anion Gap BUN Creatinine GFR Calculation BUN/Creatinine Ratio Glucose POC Glucose 342 H 163 H Calculated Osmolality Calcium Magnesium 03/04/17 03/04/17 03/04/17 07:05 07:05 12:20 WBC RBC Hgb 8.4 L Hct 25.7 L MCV MCH MCHC RDW Plt Count MPV Neut % (Auto) Lymph % (Auto) [place] % (Auto) Eos % (Auto) Baso % (Auto) Neut # (Auto) Lymph # (Auto) [place] # (Auto) Eos # (Auto) Baso # (Auto) Immature Gran % Nucleated RBC % Immature Gran # Nucleated RBCs # Immature Plt Fraction Sodium 145 Potassium 3.5 Chloride 109 H Carbon Dioxide 28 Anion Gap 11.5 BUN 85 H Creatinine 3.40 H GFR Calculation 28 BUN/Creatinine Ratio 25.00 H Glucose 135 H POC Glucose 273 H Calculated Osmolality 315.7 H Calcium 8.5 Magnesium 3.1 H
[2017-03-04] MEDS: ISOSORBIDE MONONITRATE 30 MG TABLET PO SCH (12:59)
--- NOTE | 2017-03-04 13:01 | Event Note ---
I came to see the patient he was not in his room. I reviewed his event monitors and his notes from Dr. Yepez. He had a very brief run of wide-complex tachycardia with change in the axis last night the rate was not very fast. I will try to see later today.
--- NOTE | 2017-03-04 13:29 | Nephrology Progress Note ---
Nephrology - PN: Subj Interval history: He is up in the chair today. He denies shortness of breath at rest. Exam (PN)-Nephrology - Vital Signs Vital signs: Period Temp Pulse Resp BP Sys/Faulkner Pulse Ox Last 24 Hr 97.7 F-98.9 F 59-84 16-20 124-155/58-85 90-99 Exam: Gen.: Alert and oriented x3. ENT: Pupils equal round reactive to light. EOMs intact. Mucous membranes moist. Neck: Supple. No JVD or bruit. Cardiovascular: Regular rate and rhythm. No murmur rub or gallop Lungs: Clear Abdomen: Soft. Nontender. Positive bowel sounds. No organomegaly Extremities: 2+ edema - Lab 03/04/17 07:05 03/04/17 07:05 Most recent lab results Calcium 8.5 MG/DL (8.5-10.1) 03/04/17 07:05 Magnesium 3.1 MG/DL (1.8-2.4) H 03/04/17 07:05 Assessment and Plan (1) Acute on chronic renal insufficiency Status: Chronic Assessment and plan: 66-year-old man with: * CRF stage III. Creatinine 2.4 last month * Acute on chronic renal failure. Renal function is improving. Fluid balance remains negative * Volume overload. He has borderline CHF but significant peripheral edema. Weight is 3 kg higher than 1 month ago. Recommend discontinuing minoxidil.. He is receiving Lasix IV. Fluid balance negative * CAD. Cardiac cath with stents 01/23/2017 * Constipation * Anemia. Posttransfusion * Diabetes mellitus Current Visit: No (2) CAD (coronary artery disease) Status: Chronic Current Visit: Yes (3) Anemia Status: Acute Current Visit: Yes (4) Constipation Status: Acute Current Visit: Yes (5) Coronary artery disease Status: Chronic Current Visit: No (6) Diabetes mellitus Status: Chronic Current Visit: No Qualifiers: (7) Hypertension Status: Chronic Current Visit: No
--- NOTE | 2017-03-04 16:17 | Hospitalist Progress Note ---
Assessment and Plan (1) Acute on chronic systolic (congestive) heart failure Status: Acute Assessment and plan: Continue current management. Patient seem to be responding to treatment with reassess the patient in the morning. Lasix has been increased to 40 minute grams IV twice a day. My expectation is that he should respond better. Nephrology input appreciated Current Visit: Yes (2) Chronic anemia Status: Acute Assessment and plan: Secondary to renal failure, chronic blood loss cannot be ruled out. Hematocrit now stable. Current Visit: Yes (3) Acute on chronic renal insufficiency Status: Chronic Assessment and plan: Patient has azotemia continues to improve Current Visit: No (4) GLORIA (obstructive sleep apnea) Status: Chronic Assessment and plan: Continue current management Current Visit: No (5) Hypokalemia Status: Acute Assessment and plan: Supplement per protocol. Magnesium was active on the high side at this point. Repeat BMP and magnesium in the morning Current Visit: Yes (6) A-fib Status: Chronic Assessment and plan: Patient is back on Eliquis. Check H&H in the morning Current Visit: Yes (7) Venous stasis ulcer Status: Acute Assessment and plan: Sorting wound care for further recommendations and treatment Current Visit: Yes Hospitalist: Subjective Interval history: Patient has been seen interviewed and examined chart has been reviewed in the hospital with a decompensated systolic congestive heart failure significant leg edema and acute renal injury. To be recovering from this. Respiratory failure is also recovered. Managed now with severe leg swelling with wounds i.e. stasis ulcers and he developed another blister in the back of the right thigh. He will need wound care to see him again. Gastroenterology cardiology nephrology around the case. Refer to the notes and recommendation Exam - Constitutional Vitals: Period Temp Pulse Resp BP Sys/Faulkner Pulse Ox Last 24 Hr 97.7 F-98.9 F 59-84 16-20 124-155/58-85 90-99 General appearance: morbidly obese - Head Head exam: Present: normocephalic, atraumatic - Eye Eye exam: Present: EOMI Pupils: Present: LEON - ENT ENT exam: Present: normal exam - Neck Neck exam: Present: normal inspection - Respiratory Respiratory exam: Present: clear to auscultation bilaterally - Cardiovascular Cardiovascular exam: Present: regular rate and rhythm - GI/Abdominal GI/Abdominal exam: Present: normal bowel sounds - Extremities Exam Extremities exam: Present: full ROM, other (Severe bilateral leg edema. Patient has stasis ulcers on the legs.) - Neurological Exam Neurological exam: Present: alert, oriented X3, CN II-XII intact - Psychiatric Psychiatric exam: Present: normal affect, normal mood - Skin Skin exam: Present: other (Edema of the lower extremities with stasis ulceration ) Results - Labs CBC & BMP: 03/04/17 07:05 03/04/17 07:05 Lab Results: I have reviewed the past 24 hour labs
[2017-03-05] MEDS: INSULIN LISPRO 100 UNIT/ML SUBCUT SCH ×4 (01:44→17:09)
[2017-03-05] MEDS: ALBUTEROL/IPRATROPIUM 3 ML NEB RESP TX SCH ×6 (03:01→23:13)
[2017-03-05 05:36] LABS: Eosinophils # 0.1 10*3/uL (0.0-0.87); Eosinophils % 2.8 % (0.00-10.9); Hematocrit 25.3 VOL% (42.0-52.0); Hemoglobin 8.3 GM/DL (14.0-18.0); Immature Granulocytes % 0.4 %; Immature Granulocytes Absolute 0.02 #; Lymphocytes # 0.5 10*3/uL (1.4-4.0); Lymphocytes % 10.5 % (21.2-54.2); Mean Corpuscular HGB Conc 32.8 GM/DL (32-36); Mean Corpuscular Hemoglobin 27 PG (27-34); Mean Corpuscular Volume 82.7 FL (87-102); Mean Platelet Volume 11.6 FL (9.6-12.0); Monocytes # 0.6 10*3/uL (0.11-0.8); Monocytes % 12.7 % (1.7-12.7); Neutrophils # 3.4 10*3/uL (1.4-7.4); Neutrophils % 73.6 % (38.7-73.9); Platelet Count 151 T/CUMM (130-400); Red Blood Count 3.06 MC/CUMM (3.8-5.5); Red Cell Distribution Width 15.8 % (9.3-17.3); White Blood Count 4.7 T/CUMM (4-12)
[2017-03-05 06:05] LABS: Calcium 8.7 MG/DL (8.5-10.1); Magnesium 2.7 MG/DL (1.8-2.4); Osmolality,Calculated 308.6 MOS/KG (273-304); Potassium 3.2 MMOL/L (3.5-5.1)
[2017-03-05] MEDS: CLOPIDOGREL 75 MG TABLET PO SCH (08:49)
[2017-03-05] MEDS: FAMOTIDINE 20 MG TABLET PO SCH ×2 (08:49→21:08)
[2017-03-05] MEDS: ISOSORBIDE MONONITRATE 30 MG TABLET PO SCH (08:49)
[2017-03-05] MEDS: INSULIN GLARGINE 100 UNIT/ML SUBCUT SCH (08:49)
[2017-03-05] MEDS: PANTOPRAZOLE 40 MG TABLET PO SCH (08:49)
[2017-03-05] MEDS: BISACODYL 5 MG TABLET PO SCH (08:49)
[2017-03-05] MEDS: ASPIRIN EC 81 MG TABLET PO SCH (08:49)
[2017-03-05] MEDS: POTASSIUM CHLORIDE 20 MEQ TABLET PO PRN ×2 (08:50→10:47)
[2017-03-05] MEDS: METOPROLOL TARTRATE 50 MG TABLET PO SCH ×2 (08:50→21:06)
[2017-03-05] MEDS: POLYETHYLENE GLYCOL POWDER 17 GM PACK PO SCH (08:51)
--- NOTE | 2017-03-05 08:51 | Gastrointestinal Progress Note ---
<MtatVera Moi - Last Filed: 03/05/17 08:49> Assessment and Plan (1) Anemia Status: Acute Assessment and plan: 03/05-H&H stable at 02/08. No overt bleeding. Good appetite, having bowel movements. Continue to monitor him for tentative EGD possibly tomorrow to further evaluate source of anemia plan an addendum to followed by Dr. Kennedy. 03/04-H&H stable 02/08. Stools are negative for occult blood. Denies abdominal pain. Having bowel movements now. Tolerating diet. Continue to monitor at this time. Plan an addendum to followed by Dr. Kennedy. 03/01-H&H is 03/12 without overt bleeding. No further bowel movement since yesterday. To have enema today. Plan an addendum to follow Dr. Kennedy. 02/28-no complaints of abdominal pain. H&H holding at present time. No overt bleeding noted. Stools 1+ for occult blood. Blood thinners held with last dose of Plavix on yesterday. Plan an addendum to follow Dr. Kennedy. 02/27-Admitted with abdominal pain and chest pain with findings of HH of 01/06 without overt bleeding. No known prior history of anemia in past. Being transfused 2 units PRBC today. Stools 1+ positive for occult blood. Prior colonoscopy in 2014 with only finding of internal hemorrhoids. Abdominal xray shows moderate to large amount of stool in distal colon and rectum. Continue to monitor at this time. Plan and addendum to follow by Dr Kennedy. Current Visit: Yes Gastroenterology - PN: Subj Interval history: CC: Anemia Patient is seen awake and alert sitting up in chair. States he has had an uneventful night and he rested well. He denies any abdominal pain, nausea or vomiting. He is tolerating his diet well at this time. Abdomen soft, nontender. He states he is having bowel movements and he denies any overt bleeding with this. H&H is stable at 02/08. Creatinine is down slightly 3.0. Wound care is following him at this time for his stasis ulcers. ROS: Denies shortness of breath or chest pain Exam (Progress Note) - Constitutional Vitals: Period Temp Pulse Resp BP Sys/Faulkner Pulse Ox Last 24 Hr 97.0 F-98.5 F 59-98 16-20 109-141/56-74 90-99 - Other Additional findings: General appearance: normal weight, no acute distress - Head Head exam: Present: normal inspection, normocephalic - Eye Eye exam: Present: other (Lids and conjunctivae are unremarkable). Absent: scleral icterus - ENT ENT exam: Present: normal exam, normal oropharynx - Neck Neck exam: Present: normal inspection - Respiratory Respiratory exam: Present: clear to auscultation bilaterally. Absent: rales, rhonchi, wheezes - Cardiovascular Cardiovascular exam: Present: regular rate and rhythm. Absent: diastolic murmur , JVD, systolic murmur - GI/Abdominal GI/Abdominal exam: Present: normal bowel sounds, soft. Absent: ascites, distended, mass, organomegaly, tenderness - Extremities Exam Extremities exam: Present: normal inspection, full ROM - Back Exam Back exam: Present: normal inspection - Neurological Exam Neurological exam: Present: alert, oriented X3 - Psychiatric Psychiatric exam: Present: normal affect, normal mood - Skin Skin exam: Present: normal color, warm, dry Results - Labs CBC & BMP: 03/05/17 04:35 03/05/17 04:35 Lab Results: I have reviewed the past 24 hour labs <Nickolas Kennedy - Last Filed: 03/05/17 13:57> Exam (Progress Note) - Constitutional Vitals: Period Temp Pulse Resp BP Sys/Faulkner Pulse Ox Last 24 Hr 96.8 F-98.5 F 55-98 16-20 109-144/30-80 90-99 Results - Labs CBC & BMP: 03/05/17 04:35 03/05/17 04:35
[2017-03-05] MEDS: methylPREDNISolone SOD SUC 40 MG/1 ML VIAL IV SCH (08:53)
[2017-03-05] MEDS: FUROSEMIDE 40 MG/4 ML VIAL IV SCH ×2 (09:01→15:20)
--- NOTE | 2017-03-05 10:21 | Hospitalist Progress Note ---
Assessment and Plan (1) GI bleed Status: Acute Current Visit: Yes (2) Diabetes mellitus Status: Chronic Current Visit: No Qualifiers: (3) Acute on chronic renal insufficiency Status: Chronic Current Visit: No (4) GLORIA (obstructive sleep apnea) Status: Chronic Current Visit: No (5) Anemia Status: Acute Current Visit: Yes (6) Acute on chronic diastolic CHF (congestive heart failure), NYHA class 3 Status: Acute Current Visit: Yes (7) Venous stasis ulcer Status: Acute Current Visit: Yes Hospitalist: Subjective Interval history: Patient has been hospitalized with acute on chronic systolic congestive heart failure. He is being treated with intravenous furosemide and appears to be improving. He is being followed by gastroenterology for anemia and Hemoccult positive stools. He is being followed by nephrology for acute on chronic renal failure. Is a previously known history of chronic kidney disease stage III. He is being followed by cardiology for management of his congestive heart failure. Exam - Constitutional Vitals: Period Temp Pulse Resp BP Sys/Faulkner Pulse Ox Last 24 Hr 97.0 F-98.5 F 59-98 16-20 109-141/56-74 90-99 General appearance: no acute distress - Head Head exam: Present: normal inspection - Neck Neck exam: Present: normal inspection - Respiratory Respiratory exam: Present: clear to auscultation bilaterally - Cardiovascular Cardiovascular exam: Present: regular rate and rhythm - GI/Abdominal GI/Abdominal exam: Present: normal bowel sounds, soft, other (Nontender with no palpable masses or hepatosplenomegaly.) - Extremities Exam Extremities exam: Present: normal inspection - Skin Skin exam: Present: normal color, warm, dry Results - Labs CBC & BMP: 03/05/17 04:35 03/05/17 04:35
--- NOTE | 2017-03-05 11:52 | Cardiology Progress Note ---
Assessment and Plan - Time spent with patient Time spent with patient: Less than 30 minutes (1) Coronary artery disease Status: Chronic Current Visit: No Qualifiers: [place] vs. transplanted heart: [place] heart Associated angina: without angina (2) Diabetes mellitus Status: Chronic Current Visit: No Qualifiers: Diabetes mellitus type: type 2 (3) Dyslipidemia Status: Chronic Current Visit: No (4) Obesity Status: Chronic Current Visit: No Qualifiers: Body mass index: BMI 33.0-33.9 (5) Acute on chronic renal insufficiency Status: Chronic Current Visit: No (6) Pulmonary fibrosis Status: Chronic Current Visit: No (7) Hypertension Status: Chronic Current Visit: No (8) GLORIA (obstructive sleep apnea) Status: Chronic Current Visit: No (9) Pulmonary hypertension Status: Chronic Current Visit: Yes (10) Acute on chronic diastolic CHF (congestive heart failure), NYHA class 3 Status: Acute Current Visit: Yes (11) GLORIA (obstructive sleep apnea) Status: Chronic Current Visit: Yes (12) Paroxysmal atrial fibrillation with rapid ventricular response Status: Chronic Current Visit: Yes Cardiology - PN: Subj Interval history: Mr. Marquez has no new complaints today his vital signs are good his heart rate is good no chest pain no shortness of breath. His legs are getting dressed at the time I saw him. He has no palpitations but had a brief run of SVT last night and certainly may be atrial fibrillation. We will continue to follow. The patient has no cardiopulmonary complaints. Exam (Progress Note) - Constitutional Vitals: Period Temp Pulse Resp BP Sys/Faulkner Pulse Ox Last 24 Hr 96.8 F-98.5 F 55-98 16-20 109-144/30-74 90-99 General appearance: morbidly obese - Head Head exam: Present: normal inspection - Eye Eye exam: Present: EOMI Pupils: Present: LEON - Neck Neck exam: Present: normal inspection - Respiratory Respiratory exam: Present: clear to auscultation bilaterally - Cardiovascular Cardiovascular exam: Present: regular rate and rhythm (Heart rates about 50) - GI/Abdominal GI/Abdominal exam: Present: normal bowel sounds - Extremities Exam Extremities exam: Present: other (Significant edema bilaterally his lower extremities and blisters or excoriations particularly most prominent behind his right mid thigh) - Neurological Exam Neurological exam: Present: alert, oriented X3 - Psychiatric Psychiatric exam: Present: depressed, flat affect - Skin Skin exam: Present: other (Open blisters on lower extremity) Result/EKG - Labs CBC & BMP: 03/05/17 04:35 03/05/17 04:35 Labs: Laboratory Results - last 24 hr 03/04/17 03/04/17 03/05/17 12:20 15:04 00:08 WBC RBC Hgb Hct MCV MCH MCHC RDW Plt Count MPV Neut % (Auto) Lymph % (Auto) [place] % (Auto) Eos % (Auto) Baso % (Auto) Neut # (Auto) Lymph # (Auto) [place] # (Auto) Eos # (Auto) Baso # (Auto) Immature Gran % Nucleated RBC % Immature Gran # Nucleated RBCs # Immature Plt Fraction Sodium Potassium Chloride Carbon Dioxide Anion Gap BUN Creatinine GFR Calculation BUN/Creatinine Ratio Glucose POC Glucose 273 H 244 H 259 H Calculated Osmolality Calcium Magnesium 03/05/17 03/05/17 03/05/17 04:35 04:35 05:51 WBC 4.7 RBC 3.06 L Hgb 8.3 L Hct 25.3 L MCV 82.7 L MCH 27 MCHC 32.8 RDW 15.8 Plt Count 151 MPV 11.6 Neut % (Auto) 73.6 Lymph % (Auto) 10.5 L [place] % (Auto) 12.7 Eos % (Auto) 2.8 Baso % (Auto) 0.0 Neut # (Auto) 3.4 Lymph # (Auto) 0.5 L [place] # (Auto) 0.6 Eos # (Auto) 0.1 Baso # (Auto) 0.0 Immature Gran % 0.4 Nucleated RBC % 0.0 Immature Gran # 0.02 Nucleated RBCs # 0.00 Immature Plt Fraction 0.0 Sodium 146 H Potassium 3.2 L Chloride 108 H Carbon Dioxide 29 Anion Gap 12.2 BUN 71 H D Creatinine 3.00 H GFR Calculation 32 BUN/Creatinine Ratio 23.00 H Glucose 70 L POC Glucose 46 L* Calculated Osmolality 308.6 H Calcium 8.7 Magnesium 2.7 H 03/05/17 03/05/17 03/05/17 05:53 06:30 07:42 WBC RBC Hgb Hct MCV MCH MCHC RDW Plt Count MPV Neut % (Auto) Lymph % (Auto) [place] % (Auto) Eos % (Auto) Baso % (Auto) Neut # (Auto) Lymph # (Auto) [place] # (Auto) Eos # (Auto) Baso # (Auto) Immature Gran % Nucleated RBC % Immature Gran # Nucleated RBCs # Immature Plt Fraction Sodium Potassium Chloride Carbon Dioxide Anion Gap BUN Creatinine GFR Calculation BUN/Creatinine Ratio Glucose POC Glucose 47 L* 128 H 248 H Calculated Osmolality Calcium Magnesium
--- NOTE | 2017-03-05 13:54 | Nephrology Progress Note ---
Nephrology - PN: Subj Interval history: He denies shortness of breath. He is up in the chair. Exam (PN)-Nephrology - Vital Signs Vital signs: Period Temp Pulse Resp BP Sys/Faulkner Pulse Ox Last 24 Hr 96.8 F-98.5 F 55-98 16-20 109-144/30-80 90-99 Exam: Gen.: Alert and oriented x3. ENT: Pupils equal round reactive to light. EOMs intact. Mucous membranes moist. Neck: Supple. No JVD or bruit. Cardiovascular: Regular rate and rhythm. No murmur rub or gallop Lungs: Clear Abdomen: Soft. Nontender. Positive bowel sounds. No organomegaly Extremities: 2+ edema - Lab 03/05/17 04:35 03/05/17 04:35 Most recent lab results Calcium 8.7 MG/DL (8.5-10.1) 03/05/17 04:35 Magnesium 2.7 MG/DL (1.8-2.4) H 03/05/17 04:35 Assessment and Plan (1) Acute on chronic renal insufficiency Status: Chronic Assessment and plan: 66-year-old man with: * CRF stage III. Creatinine 2.4 last month * Acute on chronic renal failure. Renal function is improving. Fluid balance remains negative * CAD. Cardiac cath with stents 01/23/2017 * Constipation * Anemia. Posttransfusion * Diabetes mellitus Current Visit: No (2) CAD (coronary artery disease) Status: Chronic Current Visit: Yes (3) Anemia Status: Acute Current Visit: Yes (4) Constipation Status: Acute Current Visit: Yes (5) Coronary artery disease Status: Chronic Current Visit: No Qualifiers: [place] vs. transplanted heart: [place] heart Associated angina: without angina (6) Diabetes mellitus Status: Chronic Current Visit: No Qualifiers: Diabetes mellitus type: type 2 (7) Hypertension Status: Chronic Current Visit: No
[2017-03-06] MEDS: INSULIN LISPRO 100 UNIT/ML SUBCUT SCH ×5 (01:25→23:35)
[2017-03-06] MEDS: ALBUTEROL/IPRATROPIUM 3 ML NEB RESP TX SCH ×6 (02:51→23:53)
[2017-03-06 07:38] LABS: Basophils % 0.2 % (0.0-0.8); Eosinophils # 0.2 10*3/uL (0.0-0.87); Eosinophils % 3.6 % (0.00-10.9); Hematocrit 27.1 VOL% (42.0-52.0); Immature Granulocytes % 0.3 %; Immature Granulocytes Absolute 0.02 #; Lymphocytes # 0.7 10*3/uL (1.4-4.0); Lymphocytes % 11.1 % (21.2-54.2); Mean Corpuscular HGB Conc 33.2 GM/DL (32-36); Mean Corpuscular Hemoglobin 28 PG (27-34); Mean Corpuscular Volume 83.4 FL (87-102); Monocytes # 0.6 10*3/uL (0.11-0.8); Monocytes % 10.1 % (1.7-12.7); Neutrophils # 4.4 10*3/uL (1.4-7.4); Neutrophils % 74.7 % (38.7-73.9); Platelet Count 159 T/CUMM (130-400); Red Blood Count 3.25 MC/CUMM (3.8-5.5); Red Cell Distribution Width 16.1 % (9.3-17.3); White Blood Count 5.9 T/CUMM (4-12)
[2017-03-06 08:11] LABS: Calcium 8.6 MG/DL (8.5-10.1); Magnesium 2.7 MG/DL (1.8-2.4); Osmolality,Calculated 306.7 MOS/KG (273-304); Potassium 3.8 MMOL/L (3.5-5.1)
[2017-03-06] MEDS: FUROSEMIDE 40 MG/4 ML VIAL IV SCH (09:59)
[2017-03-06] MEDS: methylPREDNISolone SOD SUC 40 MG/1 ML VIAL IV SCH (09:59)
--- NOTE | 2017-03-06 12:44 | Nephrology Progress Note ---
Nephrology - PN: Subj Interval history: He denies shortness of breath. No GI symptoms Exam (PN)-Nephrology - Vital Signs Vital signs: Period Temp Pulse Resp BP Sys/Faulkner Pulse Ox Last 24 Hr 97.0 F-98.6 F 57-80 16-20 127-153/66-077 93-98 Exam: Gen.: Alert and oriented x3. ENT: Pupils equal round reactive to light. EOMs intact. Mucous membranes moist. Neck: Supple. No JVD or bruit. Cardiovascular: Regular rate and rhythm. No murmur rub or gallop Lungs: Clear Abdomen: Soft. Nontender. Positive bowel sounds. No organomegaly Extremities: 2+ edema - Lab 03/06/17 06:28 03/06/17 06:28 Most recent lab results Calcium 8.6 MG/DL (8.5-10.1) 03/06/17 06:28 Magnesium 2.7 MG/DL (1.8-2.4) H 03/06/17 06:28 Assessment and Plan (1) Acute on chronic renal insufficiency Status: Chronic Assessment and plan: 66-year-old man with: * CRF stage III. Creatinine 2.4 last month * Acute on chronic renal failure. Renal function is improving. * CAD. Cardiac cath with stents 01/23/2017 * Constipation * Anemia. Posttransfusion * Diabetes mellitus Current Visit: No (2) CAD (coronary artery disease) Status: Chronic Current Visit: Yes (3) Anemia Status: Acute Current Visit: Yes (4) Constipation Status: Acute Current Visit: Yes (5) Coronary artery disease Status: Chronic Current Visit: No Qualifiers: [place] vs. transplanted heart: [place] heart Associated angina: without angina (6) Diabetes mellitus Status: Chronic Current Visit: No Qualifiers: Diabetes mellitus type: type 2 (7) Hypertension Status: Chronic Current Visit: No
[2017-03-06] MEDS ORDERED: PROPOFOL 200 MG/20 ML VIAL IV ONE (12:55)
[2017-03-06] MEDS ORDERED: LIDOCAINE 2% 5 ML VIAL ONE (12:55)
--- NOTE | 2017-03-06 13:01 | History and Physical Update ---
History and Physical Update - History and Physical H&P was reviewed, the patient examined and there: are no changes in the patients condition since last H&P was completed. - Physical Exam Mental Status: alert and oriented Heart: regular rate and rhythm Lung: clear to auscultation Abdomen: within normal limits Vitals: within normal limits
--- NOTE | 2017-03-06 13:09 | Operative Note ---
Date of procedure: 03/06/17 Pre-op diagnosis: Anemia, occult blood in stool Procedure: Procedure: Esophagogastroduodenoscopy Brief clinical abstract: 66-year-old male is admitted with recent heart failure symptoms. He has had anemia and found to have occult blood in stool. No gross GI bleeding has been noted. Patient had last colonoscopy in 2014. Indication for procedure: Occult blood in stool, anemia. Endoscopic findings:[After informed consent was obtained, the patient was placed in the left lateral decubitus position. The gastroscope was inserted in the upper esophagus under direct vision with no resistance encountered. Esophageal mucosa appeared normal with squamocolumnar junction sharply demarcated above a small hiatal hernia. The endoscope was advanced in the stomach which was carefully examined including retroflexed view of the cardia and fundus with no abnormality seen. The pyloric channel, duodenal bulb, second and third portion of duodenum appeared normal. The endoscope was removed and patient appeared to tolerate the procedure well. Impression: Small hiatal hernia-otherwise normal EGD Recommendations: Would not evaluate heme positive stool further for now. Repeating colonoscopy would be consideration if developed iron deficiency or overt lower GI bleeding. I will sign off for now. Please call if needed. Anesthesia: GETA (tiva) Surgeon / Physician: Nickolas Kennedy Estimated blood loss: none Specimens: none sent Condition: stable Disposition: post procedure unit Results - Labs CBC & BMP: 03/06/17 06:28 03/06/17 06:28 Discharge Plan - Discharge Medications No Action Ascorbic Acid Tab [Vitamin C Tab] 500 mg PO DAILY Nitroglycerin Sl Tab [Nitrostat] 0.4 mg SL Q5M PRN #1 bottle PRN Reason: Chest Pain hydrALAZINE TAB [Apresoline Tab] 100 mg PO TID #90 tablet Insulin Aspart [NovoLOG] 17 units SUBCUT TIDAC Fluticasone Propionate [Fluticasone 50 mcg Nasal [place]] 1 spray BOTH NARES DAILY PRN PRN Reason: Allergy Symptoms guaiFENesin [Guaifenesin] 400 mg PO BID raNITIdine HCl [Ranitidine HCl] 150 mg PO BID Rosuvastatin [Crestor] 40 mg PO DAILY Insulin Degludec [Tresiba Flextouch U-200] 50 units SUBCUT QAM Clopidogrel [Plavix] 75 mg PO DAILY #30 tablet NIFEdipine XL TAB [Procardia Xl] 90 mg PO DAILY #30 tablet Loratadine [Claritin] 10 mg PO DAILY #15 tablet Apixaban [Eliquis] 2.5 mg PO BID #60 tablet - Follow Up or Referral - Forms/Instructions
--- NOTE | 2017-03-06 13:23 | Anesthesia Post-Op ---
Anesthesia Post OP - Post Ansesthetic Evaluation Patient seen in post op: Yes Resp: other (cont O2) CV: within normal limits Mental: within normal limits Temp: within normal limits [id number]: within normal limits Nausea and Vomiting: within normal limits Pain: within normal limits
[2017-03-06] MEDS: INSULIN GLARGINE 100 UNIT/ML SUBCUT SCH (14:21)
--- NOTE | 2017-03-06 14:23 | Cardiology Progress Note ---
Assessment and Plan - Time spent with patient Time spent with patient: Greater than 30 minutes (1) Acute on chronic renal insufficiency Status: Acute Assessment and plan: Creatinine is improving. This morning noted to be 2.6. Nephrology is following. We are avoiding ROBERT inhibitors for fear of worsening his renal insufficiency. Continue to monitor his labs daily. Current Visit: Yes (2) Pulmonary hypertension Status: Chronic Assessment and plan: PAP 62 mmHg. Continue with current plan of treatment. SOB improving daily. Current Visit: Yes (3) Acute on chronic diastolic CHF (congestive heart failure), NYHA class 3 Status: Acute Assessment and plan: Acute on chronic CHF secondary to diastolic dysfunction, [place] Heart Association Classification II. Increase betablocker today. Avoiding ROBERT inhibitors for fear of worsening renal insufficiency. He is taking Hydralazine , adding isosorbide mononitrate today. Continue strict I&O and daily weights. Current Visit: Yes (4) Diabetes mellitus Status: Chronic Assessment and plan: Blood glucose levels are now better controlled with adjustments in medication. Continue use of sliding scale insulin adjusting to continue with good control. Current Visit: No Qualifiers: Diabetes mellitus type: type 2 (5) Dyslipidemia Status: Chronic Assessment and plan: Holding patient's lipid-lowering agent due to elevated LFTs. LFT in am. Current Visit: No (6) Obesity Status: Chronic Assessment and plan: He has received dietary counseling for his morbid obesity. Current Visit: No Qualifiers: Body mass index: BMI 33.0-33.9 (7) Hypertension Status: Chronic Assessment and plan: Over the weekend, blood pressures appear to better controlled. Increasing betablocker, given his SVT occurring during sleep hours. Hoepfully, this will suppress his runs SVT. . Current Visit: No (8) Elevated troponin Status: Chronic Assessment and plan: This is not acute [place]. Patient has elevated troponin however, the troponin is lower than it has been on prior admissions. Current Visit: No (9) GLORIA (obstructive sleep apnea) Status: Chronic Assessment and plan: Patient does have sleep apnea and uses device at home. He has not been using device during the hospital stay as previously thought. Current Visit: No (10) Constipation Status: Resolved Assessment and plan: This seems to have resolved. MiraLAX continues. Current Visit: Yes (11) CAD (coronary artery disease) Status: Chronic Assessment and plan: See recent heart catheterization report. Continue aspirin, Plavix and beta cesar. Holding statins due to transaminitis. Holding ROBERT inhibitor due to fear of worsening renal insufficiency. No complaints of angina. Current Visit: Yes (12) Anemia Status: Acute Assessment and plan: Eliquis has been discontinued. He did require transfusion since he has been hospitalized this admission. EGD was nonrevealing. Per Dr. Kennedy's report, would not require colonoscopy at this point. Current Visit: Yes (13) Abdominal pain Status: Resolved Assessment and plan: Pain has resolved at this point. Current Visit: Yes (14) A-fib Status: Chronic Assessment and plan: Patient was previously taking Sotalol. However, given his severe renal insufficiency his Sotalol has been discontinued. Eliquis has been discontinued due to his severe anemia. Current Visit: Yes Cardiology - PN: Subj Interval history: [employer]: DR. OSPINA SUMMARY: Mr. Marquez, 66BM, routinely followed by Dr. Ospina. Risk factors include: Known CAD (S/P STEMI with PCI-right PDA January 23, 2017), hypertension, dyslipidemia, diabetes, sedentary lifestyle, obesity. History of atrial fibrillation(on admission patient was taking Eliquis 2.5 twice daily for stroke prevention). Echocardiogram 01/23/2017: EF 60%, mild mitral regurgitation , PAP 62 mmHg. Admitted February 26, 2017 with complaints of abdominal pressure. Cardiology was consulted as it was reported that the patient was having chest pressure. In retrospect, patient was having significant complaints of abdominal pressure. Troponin was mildly elevated on admission however, troponin was actually lower this admission than on prior admissions. This is not acute [place]. Patient was found to be significantly anemic while taking Plavix and (low-dose) Eliquis. Eliquis was discontinued given his heme positive stools. After holding Eliquis, repeat stool for occult blood was negative. Eliquis continues to be held. Continue to hold lipid-lowering agent due to mildly elevated LFTs. Creatinine is improving daily. Avoiding ROBERT inhibitors for fear of worsening renal insufficiency. 2016: Patient underwent EGD this morning. No obvious source of bleeding, small hiatal hernia noted. He appears to be very comfortable. Denies shortness of breath or chest discomfort. Vital signs are stable. This morning around 0600 he had an episode of SVT. The episodes of SVT he has had have been during sleep hours. He is not using his sleep device during this hospital stay. Will increase his metoprolol to a higher dose starting this evening. Hopefully, patient will be eligible for discharge home soon. Will further discuss with Dr. Choudhary and await additional recommendations. Exam (Progress Note) - Constitutional Vitals: Period Temp Pulse Resp BP Sys/Faulkner Pulse Ox Last 24 Hr 97.0 F-98.6 F 57-80 16-20 127-153/66-077 93-100 Exam: General: [Appears well with no apparent distress.] [Pleasant and cooperative. ] [Appears comfortable.] HEENT: [PERRL, normocephalic, atraumatic. Mucous membranes moist. No jaundice noted. Conjunctiva moist and clear, sclerae anicteric] Neck: Unable to assess for JVD due to habitus. No thyromegaly or lymphadenopathy noted. No carotid bruit appreciated Cardiac: [Regular rate and rhythm.] [No murmur rub or gallop.] Lungs: [Clear to auscultation without accessory muscle use to assist the respiratory pattern.] Not using oxygen at this time Abdomen: Soft, less protuberant. Bowel sounds normoactive. Nontender and nondistended. No abdominal bruit or thrill noted. No masses noted. Musculoskeletal: No fluid collection. Decreased range of motion is noted. Extremities: Both lower extremities are wrapped. Upper extremity pulses 2+. Lower extremity pulses 1+. Capillary refill less than 3 seconds. Skin: No skin breakdown appreciated. SKin turgur brisk. Neuro: Awake, alert and oriented 3. Moves all extremities well without hemiparesis or paralysis. No essential tremor is appreciated. Result/EKG - Labs CBC & BMP: 03/06/17 06:28 03/06/17 06:28 Lab Results: I have reviewed the past 24 hour labs Labs: Laboratory Results - last 24 hr 03/05/17 03/05/17 03/06/17 16:50 17:23 00:06 WBC RBC Hgb Hct MCV MCH MCHC RDW Plt Count MPV Neut % (Auto) Lymph % (Auto) [place] % (Auto) Eos % (Auto) Baso % (Auto) Neut # (Auto) Lymph # (Auto) [place] # (Auto) Eos # (Auto) Baso # (Auto) Immature Gran % Nucleated RBC % Immature Gran # Nucleated RBCs # Immature Plt Fraction Sodium Potassium 4.3 Chloride Carbon Dioxide Anion Gap BUN Creatinine GFR Calculation BUN/Creatinine Ratio Glucose POC Glucose 272 H 259 H Calculated Osmolality Calcium Magnesium 03/06/17 03/06/17 03/06/17 05:47 06:28 06:28 WBC 5.9 RBC 3.25 L Hgb 9.0 L Hct 27.1 L MCV 83.4 L MCH 28 MCHC 33.2 RDW 16.1 Plt Count 159 MPV 11.0 Neut % (Auto) 74.7 H Lymph % (Auto) 11.1 L [place] % (Auto) 10.1 Eos % (Auto) 3.6 Baso % (Auto) 0.2 Neut # (Auto) 4.4 Lymph # (Auto) 0.7 L [place] # (Auto) 0.6 Eos # (Auto) 0.2 Baso # (Auto) 0.0 Immature Gran % 0.3 Nucleated RBC % 0.0 Immature Gran # 0.02 Nucleated RBCs # 0.00 Immature Plt Fraction 0.0 Sodium 145 Potassium 3.8 Chloride 109 H Carbon Dioxide 29 Anion Gap 10.8 BUN 60 H Creatinine 2.60 H GFR Calculation 38 BUN/Creatinine Ratio 23.00 H Glucose 134 H POC Glucose 175 H Calculated Osmolality 306.7 H Calcium 8.6 Magnesium 2.7 H 03/06/17 03/06/17 03/06/17 07:51 09:32 11:29 WBC RBC Hgb Hct MCV MCH MCHC RDW Plt Count MPV Neut % (Auto) Lymph % (Auto) [place] % (Auto) Eos % (Auto) Baso % (Auto) Neut # (Auto) Lymph # (Auto) [place] # (Auto) Eos # (Auto) Baso # (Auto) Immature Gran % Nucleated RBC % Immature Gran # Nucleated RBCs # Immature Plt Fraction Sodium Potassium Chloride Carbon Dioxide Anion Gap BUN Creatinine GFR Calculation BUN/Creatinine Ratio Glucose POC Glucose 127 H 101 99 Calculated Osmolality Calcium Magnesium - EKG EKG results: interpreted by me EKG shows: sinus rhythm
[2017-03-06] MEDS: FAMOTIDINE 20 MG TABLET PO SCH ×2 (14:53→20:22)
[2017-03-06] MEDS: PANTOPRAZOLE 40 MG TABLET PO SCH (14:54)
[2017-03-06] MEDS: ASPIRIN EC 81 MG TABLET PO SCH (14:54)
[2017-03-06] MEDS: ISOSORBIDE MONONITRATE 30 MG TABLET PO SCH (14:54)
[2017-03-06] MEDS: POLYETHYLENE GLYCOL POWDER 17 GM PACK PO SCH (14:54)
[2017-03-06] MEDS: BISACODYL 5 MG TABLET PO SCH (14:54)
[2017-03-06] MEDS: CLOPIDOGREL 75 MG TABLET PO SCH (14:54)
[2017-03-06] MEDS ORDERED: ACETAMINOPHEN 325 MG TABLET PO PRN (15:49)
[2017-03-06] MEDS: FUROSEMIDE 80 MG TABLET PO SCH (16:05)
[2017-03-06] MEDS: LIDOCAINE 5% PATCH TRANSDERM SCH (16:05)
--- NOTE | 2017-03-06 16:15 | Hospitalist Progress Note ---
Assessment and Plan (1) GI bleed Status: Acute Assessment and plan: Patient underwent an EGD today with no discernible cause of bleeding found. Current Visit: Yes (2) Diabetes mellitus Status: Chronic Assessment and plan: His glucose this morning was 127. Current Visit: No Qualifiers: Diabetes mellitus type: type 2 (3) Acute on chronic renal insufficiency Status: Chronic Assessment and plan: His BUN and creatinine today are 60 and 2.6. Current Visit: No (4) GLORIA (obstructive sleep apnea) Status: Chronic Current Visit: No (5) Anemia Status: Acute Assessment and plan: His hematocrit and hemoglobin today are 27.1 and 9.0. Current Visit: Yes (6) Acute on chronic diastolic CHF (congestive heart failure), NYHA class 3 Status: Acute Assessment and plan: He appears improved today with no evidence of active congestive heart failure. Current Visit: Yes (7) Venous stasis ulcer Status: Acute Current Visit: Yes Hospitalist: Subjective Interval history: Patient underwent an EGD today demonstrating a hiatus hernia but no source of bleeding. He is generally doing well with no specific new complaints. Exam - Constitutional Vitals: Period Temp Pulse Resp BP Sys/Faulkner Pulse Ox Last 24 Hr 96.8 F-98.6 F 57-80 16-20 127-153/69-077 93-100 General appearance: no acute distress - Head Head exam: Present: normal inspection - Neck Neck exam: Present: normal inspection - Respiratory Respiratory exam: Present: clear to auscultation bilaterally - Cardiovascular Cardiovascular exam: Present: regular rate and rhythm - GI/Abdominal GI/Abdominal exam: Present: normal bowel sounds, soft, other (Nontender with no palpable masses or hepatosplenomegaly.) - Extremities Exam Extremities exam: Present: normal inspection - Skin Skin exam: Present: normal color, warm, intact Results - Labs CBC & BMP: 03/06/17 06:28 03/06/17 06:28
[2017-03-06] MEDS: METOPROLOL TARTRATE 100 MG TABLET PO SCH (20:22)
[2017-03-07] MEDS: ALBUTEROL/IPRATROPIUM 3 ML NEB RESP TX SCH ×5 (03:03→19:03)
[2017-03-07] MEDS: INSULIN LISPRO 100 UNIT/ML SUBCUT SCH ×5 (05:49→23:42)
[2017-03-07 06:54] LABS: Basophils % 0.2 % (0.0-0.8); Eosinophils # 0.1 10*3/uL (0.0-0.87); Eosinophils % 2.2 % (0.00-10.9); Hematocrit 26.8 VOL% (42.0-52.0); Hemoglobin 8.9 GM/DL (14.0-18.0); Immature Granulocytes % 0.3 %; Immature Granulocytes Absolute 0.02 #; Lymphocytes # 0.5 10*3/uL (1.4-4.0); Lymphocytes % 7.9 % (21.2-54.2); Mean Corpuscular HGB Conc 33.2 GM/DL (32-36); Mean Corpuscular Hemoglobin 28 PG (27-34); Mean Corpuscular Volume 83.5 FL (87-102); Mean Platelet Volume 10.8 FL (9.6-12.0); Monocytes # 0.7 10*3/uL (0.11-0.8); Neutrophils # 4.6 10*3/uL (1.4-7.4); Neutrophils % 78.4 % (38.7-73.9); Platelet Count 162 T/CUMM (130-400); Red Blood Count 3.21 MC/CUMM (3.8-5.5); Red Cell Distribution Width 16.2 % (9.3-17.3); White Blood Count 5.9 T/CUMM (4-12)
[2017-03-07 07:32] LABS: Calcium 8.4 MG/DL (8.5-10.1); Magnesium 2.1 MG/DL (1.8-2.4); Osmolality,Calculated 298.8 MOS/KG (273-304); Potassium 3.3 MMOL/L (3.5-5.1)
[2017-03-07 07:44] LABS: Albumin 3.1 G/DL (3.4-5.0); Bilirubin,Direct 0.19 MG/DL (0.0-0.20); Bilirubin,Indirect 0.3 MG/DL (0.0-1.0); Bilirubin,Total 0.5 MG/DL (0.2-1.0); Total Protein 5.8 G/DL (6.4-8.3)
[2017-03-07] MEDS: CLOPIDOGREL 75 MG TABLET PO SCH (08:40)
[2017-03-07] MEDS: INSULIN GLARGINE 100 UNIT/ML SUBCUT SCH (08:40)
[2017-03-07] MEDS: ASPIRIN EC 81 MG TABLET PO SCH (08:40)
[2017-03-07] MEDS: FUROSEMIDE 80 MG TABLET PO SCH ×2 (08:40→16:52)
[2017-03-07] MEDS: methylPREDNISolone SOD SUC 40 MG/1 ML VIAL IV SCH (08:40)
[2017-03-07] MEDS: FAMOTIDINE 20 MG TABLET PO SCH ×2 (08:40→21:27)
[2017-03-07] MEDS: BISACODYL 5 MG TABLET PO SCH (08:41)
[2017-03-07] MEDS: ISOSORBIDE MONONITRATE 30 MG TABLET PO SCH (08:41)
[2017-03-07] MEDS: METOPROLOL TARTRATE 100 MG TABLET PO SCH ×2 (08:41→21:27)
[2017-03-07] MEDS: PANTOPRAZOLE 40 MG TABLET PO SCH (08:41)
[2017-03-07] MEDS: POTASSIUM CHLORIDE 20 MEQ TABLET PO PRN (08:41)
[2017-03-07] MEDS: POLYETHYLENE GLYCOL POWDER 17 GM PACK PO SCH (08:42)
[2017-03-07] MEDS: LIDOCAINE 5% PATCH TRANSDERM SCH (08:42)
--- NOTE | 2017-03-07 10:35 | Cardiology Progress Note ---
Assessment and Plan - Time spent with patient Time spent with patient: Greater than 30 minutes (1) Acute on chronic renal insufficiency Status: Acute Assessment and plan: Creatinine continues to improve. Creatinine is 2.5 today. We will continue to avoid using ROBERT inhibitors at this time Current Visit: Yes (2) Pulmonary hypertension Status: Chronic Assessment and plan: PAP 62 mmHg. Continue with current plan of treatment. He is not requiring oxygen at this time. Ambulating without shortness of breath. Today he is probably getting ready for discharge home soon Current Visit: Yes (3) Acute on chronic diastolic CHF (congestive heart failure), NYHA class 3 Status: Acute Assessment and plan: Acute on chronic CHF secondary to diastolic dysfunction, [place] Heart Association Classification II. Increased beta-cesar yesterday. Avoiding ROBERT inhibitors for fear of worsening renal insufficiency. He is taking Hydralazine , Isosorbide mononitrate. Continue strict I&O and daily weights. Current Visit: Yes (4) Diabetes mellitus Status: Chronic Assessment and plan: Blood glucose levels are now better controlled with adjustments in medication. Continue use of sliding scale insulin adjusting to continue with good control. Current Visit: No Qualifiers: Diabetes mellitus type: type 2 (5) Dyslipidemia Status: Chronic Assessment and plan: Holding patient's lipid-lowering agent due to elevated LFTs. LFTs continue to improve but will continue to hold his lipid-lowering agent and this can be rechallenged outpatient Current Visit: No (6) Obesity Status: Chronic Assessment and plan: He has received dietary counseling for his morbid obesity. Current Visit: No Qualifiers: Body mass index: BMI 33.0-33.9 (7) Hypertension Status: Chronic Assessment and plan: Increase beta-cesar yesterday. No additional runs of SVT overnight. Blood pressure is better controlled as well. Current Visit: No (8) Elevated troponin Status: Chronic Assessment and plan: This is not acute DC. Patient has elevated troponin however, the troponin is lower than it has been on prior admissions. Continue Aspirin and Plavix. Current Visit: No (9) GLORIA (obstructive sleep apnea) Status: Chronic Assessment and plan: Patient does have sleep apnea and uses device at home. He has not been using device during the hospital stay as previously thought. Current Visit: No (10) Constipation Status: Resolved Assessment and plan: This seems to have resolved. MiraLAX continues. Current Visit: Yes (11) CAD (coronary artery disease) Status: Chronic Assessment and plan: See recent heart catheterization report. Continue Aspirin, Plavix and beta cesar. Holding statins due to transaminitis. Although improved, may consider rechallange outpatient. Holding ROBERT inhibitor due to fear of worsening renal insufficiency. No complaints of angina with exertion. Current Visit: Yes (12) Anemia Status: Acute Assessment and plan: Eliquis has been discontinued. He did require transfusion since he has been hospitalized this admission. EGD was nonrevealing. Per Dr. Kennedy's report, would not require colonoscopy at this point. We will not resume Eliquis as he MUST continue DAPT for one year. Current Visit: Yes (13) Abdominal pain Status: Resolved Assessment and plan: Pain has resolved at this point. Current Visit: Yes (14) A-fib Status: Chronic Assessment and plan: Patient was previously taking Sotalol. This was discontinued due to severe renal insiffuciency which is improving. He remains at risk for stroke (CHADS VASC SCORE 4) but not a candidate for formal anticoagulation or NOACs at this time. Current Visit: Yes Qualifiers: Atrial fibrillation type: paroxysmal Qualified Code(s): I48.0 - Paroxysmal atrial fibrillation Cardiology - PN: Subj Interval history: SENIOR TALENT MANAGEMENT CONSULTANT: DR. OSPINA SUMMARY: Mr. Marquez, 66BM, routinely followed by Dr. Ospina. Risk factors include: Known CAD (S/P STEMI with PCI-right PDA January 23, 2017), hypertension, dyslipidemia, diabetes, sedentary lifestyle, obesity. History of atrial fibrillation(on admission patient was taking Eliquis 2.5 twice daily for stroke prevention). Echocardiogram 01/23/2017: EF 60%, mild mitral regurgitation , PAP 62 mmHg. Admitted February 26, 2017 with complaints of abdominal pressure. Cardiology was consulted as it was reported that the patient was having chest pressure. In retrospect, patient was having significant complaints of abdominal pressure. Troponin was mildly elevated on admission however, troponin was actually lower this admission than on prior admissions. This is not acute DC. Patient was found to be significantly anemic while taking Plavix and (low-dose) Eliquis. Eliquis was discontinued given his heme positive stools. After holding Eliquis, repeat stool for occult blood was negative. Eliquis continues to be held. Continue to hold lipid-lowering agent due to mildly elevated LFTs. Creatinine is improving daily. Avoiding ROBERT inhibitors for fear of worsening renal insufficiency. 2016: Patient underwent EGD this morning. No obvious source of bleeding, small hiatal hernia noted. He appears to be very comfortable. Denies shortness of breath or chest discomfort. Vital signs are stable. This morning around 0600 he had an episode of SVT. The episodes of SVT he has had have been during sleep hours. He is not using his sleep device during this hospital stay. Will increase his metoprolol to a higher dose starting this evening. Hopefully, patient will be eligible for discharge home soon. Will further discuss with Dr. Choudhary and await additional recommendations. 2016: Mr. Marquez is been ambulating in the room without shortness of breath. Denies chest pain, heaviness or tightness. Yesterday, beta-cesar was increased and through the night his blood pressure and heart rate improved. Transitioned IV Lasix to oral Lasix yesterday. According to daily weights, he is down 5 kg overnight. At this point, we will continue to hold his Eliquis given his heme positive stools while taking Eliquis, anemia. I will further discuss with Dr. Choudhary and await additional recommendations. Exam (Progress Note) - Constitutional Vitals: Period Temp Pulse Resp BP Sys/Faulkner Pulse Ox Last 24 Hr 96.8 F-98.8 F 60-102 16-20 121-185/66-077 91-100 Exam: General: [Appears well with no apparent distress.] [Pleasant and cooperative. ] [Appears comfortable.] HEENT: [PERRL, normocephalic, atraumatic. Poor dentition noted. Mucous membranes moist. No jaundice noted. Conjunctiva moist and clear, sclerae anicteric] Neck: Unable to assess for JVD due to habitus. No thyromegaly or lymphadenopathy noted. No carotid bruit appreciated Cardiac: [Regular rate and rhythm.] [No murmur rub or gallop.] Lungs: [Clear to auscultation without accessory muscle use to assist the respiratory pattern.] Not using oxygen at this time Abdomen: Soft, less protuberant. Bowel sounds hyperactive. Nontender, large. No abdominal bruit or thrill noted. No masses noted. Musculoskeletal: No fluid collection. Decreased range of motion is noted. Extremities: Both lower extremities are wrapped. Upper extremity pulses 2+. Lower extremity pulses 1+. Capillary refill less than 3 seconds. Skin: No skin breakdown appreciated. Skin turgur brisk. Neuro: Awake, alert and oriented 3. Moves all extremities well without hemiparesis or paralysis. No essential tremor is appreciated. Result/EKG - Labs CBC & BMP: 03/07/17 06:42 03/07/17 06:42 Lab Results: I have reviewed the past 24 hour labs Labs: Laboratory Results - last 24 hr 03/06/17 03/06/17 03/06/17 11:29 17:10 22:56 WBC RBC Hgb Hct MCV MCH MCHC RDW Plt Count MPV Neut % (Auto) Lymph % (Auto) [place] % (Auto) Eos % (Auto) Baso % (Auto) Neut # (Auto) Lymph # (Auto) [place] # (Auto) Eos # (Auto) Baso # (Auto) Immature Gran % Nucleated RBC % Immature Gran # Nucleated RBCs # Immature Plt Fraction Sodium Potassium Chloride Carbon Dioxide Anion Gap BUN Creatinine GFR Calculation BUN/Creatinine Ratio Glucose POC Glucose 99 391 H 355 H Calculated Osmolality Calcium Magnesium Total Bilirubin Direct Bilirubin Indirect Bilirubin AST ALT Alkaline Phosphatase Total Protein Albumin 03/07/17 03/07/17 03/07/17 05:14 05:17 05:46 WBC RBC Hgb Hct MCV MCH MCHC RDW Plt Count MPV Neut % (Auto) Lymph % (Auto) [place] % (Auto) Eos % (Auto) Baso % (Auto) Neut # (Auto) Lymph # (Auto) [place] # (Auto) Eos # (Auto) Baso # (Auto) Immature Gran % Nucleated RBC % Immature Gran # Nucleated RBCs # Immature Plt Fraction Sodium Potassium Chloride Carbon Dioxide Anion Gap BUN Creatinine GFR Calculation BUN/Creatinine Ratio Glucose POC Glucose 42 L* 47 L* 85 Calculated Osmolality Calcium Magnesium Total Bilirubin Direct Bilirubin Indirect Bilirubin AST ALT Alkaline Phosphatase Total Protein Albumin 03/07/17 03/07/17 03/07/17 06:42 06:42 06:42 WBC 5.9 RBC 3.21 L Hgb 8.9 L Hct 26.8 L MCV 83.5 L MCH 28 MCHC 33.2 RDW 16.2 Plt Count 162 MPV 10.8 Neut % (Auto) 78.4 H Lymph % (Auto) 7.9 L [place] % (Auto) 11.0 Eos % (Auto) 2.2 Baso % (Auto) 0.2 Neut # (Auto) 4.6 Lymph # (Auto) 0.5 L [place] # (Auto) 0.7 Eos # (Auto) 0.1 Baso # (Auto) 0.0 Immature Gran % 0.3 Nucleated RBC % 0.0 Immature Gran # 0.02 Nucleated RBCs # 0.00 Immature Plt Fraction 0.0 Sodium 144 Potassium 3.3 L Chloride 108 H Carbon Dioxide 29 Anion Gap 10.3 BUN 49 H Creatinine 2.50 H GFR Calculation 39 BUN/Creatinine Ratio 19.00 Glucose 99 POC Glucose Calculated Osmolality 298.8 Calcium 8.4 L Magnesium 2.1 Total Bilirubin 0.50 Direct Bilirubin 0.190 Indirect Bilirubin 0.3 AST 23 ALT 80 H Alkaline Phosphatase 143 H Total Protein 5.8 L Albumin 3.1 L - EKG EKG results: interpreted by me EKG shows: sinus rhythm
[2017-03-07] MEDS: POTASSIUM CHLORIDE 20 MEQ TABLET PO SCH (11:45)
--- NOTE | 2017-03-07 15:31 | Nephrology Progress Note ---
Nephrology - PN: Subj Interval history: He is ambulating in the mancera. He denies shortness of breath or nausea Exam (PN)-Nephrology - Vital Signs Vital signs: Period Temp Pulse Resp BP Sys/Faulkner Pulse Ox Last 24 Hr 97.8 F-98.8 F 60-102 16-20 121-185/66-91 91-99 Exam: ENT: Normal Cardiovascular: Regular rate and rhythm. No murmur rub or gallop Lungs: Clear Extremities: 2+ edema - Lab 03/07/17 06:42 03/07/17 06:42 Most recent lab results Calcium 8.4 MG/DL (8.5-10.1) L 03/07/17 06:42 Magnesium 2.1 MG/DL (1.8-2.4) 03/07/17 06:42 Assessment and Plan (1) Acute on chronic renal insufficiency Status: Chronic Assessment and plan: 66-year-old man with: * CRF stage III. Creatinine 2.4 last month * Acute on chronic renal failure. Renal function is now near baseline * CAD. Cardiac cath with stents 01/23/2017 * Constipation. Improved * Anemia. Posttransfusion * Diabetes mellitus Current Visit: No (2) CAD (coronary artery disease) Status: Chronic Current Visit: Yes (3) Anemia Status: Acute Current Visit: Yes (4) Constipation Status: Resolved Current Visit: Yes (5) Coronary artery disease Status: Chronic Current Visit: No Qualifiers: [place] vs. transplanted heart: [place] heart Associated angina: without angina (6) Diabetes mellitus Status: Chronic Current Visit: No Qualifiers: Diabetes mellitus type: type 2 (7) Hypertension Status: Chronic Current Visit: No
--- NOTE | 2017-03-07 17:55 | Hospitalist Progress Note ---
Assessment and Plan (1) Acute on chronic diastolic CHF (congestive heart failure), NYHA class 3 Status: Acute Assessment and plan: He still has significant edema including pitting of his calves and including his thighs at 2-3+. He also has moderate to significant JVD. He is on Lasix 80 p.o. twice daily. We will go back to IV furosemide at 100 mg twice daily and add metolazone. See if we can pull off a little more fluid before he goes home. Current Visit: Yes (2) Cardiorenal syndrome Status: Acute Assessment and plan: Creatinine has improved. He still has significant edema. This was obviously cardiorenal syndrome as his creatinine improved with diuresis. Continue to watch. Current Visit: Yes (3) Diabetes mellitus Status: Chronic Assessment and plan: Fasting glucose this morning was 47 at 5 AM. Low a.m. blood glucose usually indicates to high basal insulin i.e. Lantus dose. Will adjust. Cut Lantus from 60 units to 40 units. Glucoses were high due to steroids. Taper Solu- Medrol 60 mg to prednisone 20 mg in office soon. His prior to admission to receive a dose was 50 units every morning. Current Visit: No Qualifiers: Diabetes mellitus type: type 2 (4) CAD (coronary artery disease) Status: Chronic Current Visit: Yes (5) A-fib Status: Chronic Current Visit: Yes Qualifiers: Atrial fibrillation type: paroxysmal Qualified Code(s): I48.0 - Paroxysmal atrial fibrillation Hospitalist: Subjective Interval history: Pt has no complalints. He denies significant shortness of breath. He still has significant lower extremity swelling. Exam - Constitutional Vitals: Period Temp Pulse Resp BP Sys/Faulkner Pulse Ox Last 24 Hr 97.8 F-98.8 F 60-102 16-20 121-185/66-91 91-99 - Respiratory Respiratory exam: Present: clear to auscultation bilaterally - Cardiovascular Cardiovascular exam: Present: JVD (Moderate to significant JVD), regular rate and rhythm - Extremities Exam Extremities exam: Present: edema (3+ or more lower extremity edema with 2-3+ pitting edema even in his dependent thigh.) - Neurological Exam Neurological exam: Present: alert, oriented X3 Results - Labs CBC & BMP: 03/07/17 06:42 03/07/17 06:42
[2017-03-07] MEDS: metOLazone 5 MG TABLET PO SCH (18:10)
[2017-03-07] MEDS: FUROSEMIDE 100 MG/10 ML VIAL IV SCH (18:43)
--- NOTE | 2017-03-07 18:51 | XRay Report ---
2 view chest. Indication: Congestive heart failure. Comparison: February 26, 2017. The heart is enlarged. The pulmonary vasculature is prominent. There is patchy right perihilar infiltrate and a right-sided pleural effusion. There is atelectasis at the right lung base. Osseous structures are stable. Impression: Cardiomegaly. Right perihilar infiltrate basilar atelectasis and pleural effusion. PROCEDURE INTERPRETED AT [facility] DEPARTMENT OF RADIOLOGY Final Report Signed by: Dr. Yelitza Lobato
[2017-03-08] MEDS: ALBUTEROL/IPRATROPIUM 3 ML NEB RESP TX SCH ×6 (00:48→20:01)
[2017-03-08 05:45] LABS: Eosinophils # 0.1 10*3/uL (0.0-0.87); Hematocrit 27.2 VOL% (42.0-52.0); Immature Granulocytes % 0.4 %; Immature Granulocytes Absolute 0.02 #; Lymphocytes # 0.7 10*3/uL (1.4-4.0); Lymphocytes % 14.3 % (21.2-54.2); Mean Corpuscular HGB Conc 33.1 GM/DL (32-36); Mean Corpuscular Hemoglobin 28 PG (27-34); Mean Corpuscular Volume 83.4 FL (87-102); Mean Platelet Volume 10.9 FL (9.6-12.0); Monocytes # 0.6 10*3/uL (0.11-0.8); Monocytes % 13.7 % (1.7-12.7); Neutrophils # 3.2 10*3/uL (1.4-7.4); Neutrophils % 69.6 % (38.7-73.9); Platelet Count 185 T/CUMM (130-400); Red Blood Count 3.26 MC/CUMM (3.8-5.5); Red Cell Distribution Width 16.1 % (9.3-17.3); White Blood Count 4.6 T/CUMM (4-12)
[2017-03-08] MEDS: INSULIN LISPRO 100 UNIT/ML SUBCUT SCH ×6 (05:47→18:17)
[2017-03-08 06:22] LABS: Calcium 8.8 MG/DL (8.5-10.1); Magnesium 1.9 MG/DL (1.8-2.4); Potassium 3.4 MMOL/L (3.5-5.1)
[2017-03-08] MEDS: METOPROLOL TARTRATE 50 MG TABLET PO SCH (07:58)
[2017-03-08] MEDS: ASPIRIN EC 81 MG TABLET PO SCH (08:00)
[2017-03-08] MEDS: BISACODYL 5 MG TABLET PO SCH (08:00)
[2017-03-08] MEDS: FUROSEMIDE 100 MG/10 ML VIAL IV SCH (08:00)
[2017-03-08] MEDS: predniSONE 20 MG TABLET PO SCH (08:00)
[2017-03-08] MEDS: INSULIN GLARGINE 100 UNIT/ML SUBCUT SCH (08:00)
[2017-03-08] MEDS: METOPROLOL TARTRATE 100 MG TABLET PO SCH ×2 (08:00→21:33)
[2017-03-08] MEDS: PANTOPRAZOLE 40 MG TABLET PO SCH (08:01)
[2017-03-08] MEDS: metOLazone 5 MG TABLET PO SCH (08:01)
[2017-03-08] MEDS: POTASSIUM CHLORIDE 20 MEQ TABLET PO SCH (08:01)
[2017-03-08] MEDS: ISOSORBIDE MONONITRATE 30 MG TABLET PO SCH (08:01)
[2017-03-08] MEDS: POLYETHYLENE GLYCOL POWDER 17 GM PACK PO SCH (08:01)
[2017-03-08] MEDS: CLOPIDOGREL 75 MG TABLET PO SCH (08:01)
[2017-03-08] MEDS: FAMOTIDINE 20 MG TABLET PO SCH ×2 (08:01→21:33)
[2017-03-08] MEDS: LIDOCAINE 5% PATCH TRANSDERM SCH (08:01)
--- NOTE | 2017-03-08 10:18 | Hospitalist Progress Note ---
Assessment and Plan - Time spent with patient Time spent with patient: Greater than 30 minutes (1) Diabetes mellitus Status: Chronic Current Visit: No Qualifiers: Diabetes mellitus type: type 2 (2) Dyslipidemia Status: Chronic Current Visit: No (3) Obesity Status: Chronic Current Visit: No Qualifiers: Body mass index: BMI 33.0-33.9 (4) Acute on chronic renal insufficiency Status: Chronic Current Visit: No (5) Dyspnea Status: Resolved Current Visit: No Qualifiers: (6) Hypertension Status: Chronic Current Visit: No (7) GLORIA (obstructive sleep apnea) Status: Chronic Current Visit: No (8) Acute on chronic diastolic CHF (congestive heart failure), NYHA class 3 Status: Acute Current Visit: Yes (9) Chronic anemia Status: Acute Assessment and plan: Continue IV diuresis with Lasix 100 mg twice daily, monitor input and output. Monitor electrolytes and renal function while on IV Lasix. Decrease insulin dose to avoid repeat hypoglycemic episodes, change to Lantus 40 mg daily and pre-meal insulin 10 units 3 times daily before meals. Nephrology follow-up Not on anticoagulation because of chronic anemia and occult GI bleed. H&H is stable. Continue dual antiplatelet therapy per cardiology Current Visit: Yes Hospitalist: Subjective Interval history: 66-year-old man who is being managed for decompensated diastolic CHF with secondary cardiorenal syndrome. Seemed to have been improving and was switched to oral Lasix, however review of records show that she was he was beginning to reaccumulate fluid and was started back on IV Lasix as 100 mg twice daily. He has 800 cc negative fluid balance over the last 24 hours. Renal function remains stable today. Hematocrit is stable, repeat stool occult blood was negative. He is of anticoagulation. He has no new complaints Hypoglycemic episode noted at about 5 AM this morning, will need to cut down his insulin. Exam - Constitutional Vitals: Period Temp Pulse Resp BP Sys/Faulkner Pulse Ox Last 24 Hr 97.2 F-98.5 F 62-88 16-20 131-143/67-76 91-99 Exam: Exam: General: [Appears well with no apparent distress.] [Pleasant and cooperative. ] [Appears comfortable.] HEENT: [PERRL, normocephalic, atraumatic. Poor dentition . Mucous membranes moist. No jaundice noted. Conjunctiva moist and clear, sclerae anicteric] Neck: Unable to assess for JVD due to habitus. No thyromegaly or lymphadenopathy noted. No carotid bruit appreciated Cardiac: [Regular rate and rhythm.] [No murmur rub or gallop.] Lungs: [Clear to auscultation without accessory muscle use to assist the respiratory pattern.] Not using oxygen at this time Abdomen: Soft, less protuberant. Bowel sounds hyperactive. Nontender, large. No abdominal bruit or thrill noted. No masses noted. Musculoskeletal: No fluid collection. Decreased range of motion is noted. Extremities: Both lower extremities are wrapped. Upper extremity pulses 2+. Skin: No skin breakdown appreciated. Skin turgur brisk. Neuro: Awake, alert and oriented 3. Moves all extremities well without hemiparesis or paralysis. No essential tremor is appreciated. Results - Labs CBC & BMP: 03/08/17 05:04 03/08/17 05:04 Lab Results: I have reviewed the past 24 hour labs
--- NOTE | 2017-03-08 13:28 | Nephrology Progress Note ---
Nephrology - PN: Subj Interval history: He denies shortness of breath at rest or when walking in mancera. No chest pain Exam (PN)-Nephrology - Vital Signs Vital signs: Period Temp Pulse Resp BP Sys/Faulkner Pulse Ox Last 24 Hr 97.2 F-98.5 F 61-88 18-20 125-143/64-76 91-99 Exam: Gen.: Alert and oriented x3. ENT: Pupils equal round reactive to light. EOMs intact. Mucous membranes moist. Neck: Supple. No JVD or bruit. Cardiovascular: Regular rate and rhythm. No murmur rub or gallop Lungs: Clear Abdomen: Soft. Nontender. Positive bowel sounds. No organomegaly Extremities: 1-2+ edema - Lab 03/08/17 05:04 03/08/17 05:04 Most recent lab results Calcium 8.8 MG/DL (8.5-10.1) 03/08/17 05:04 Magnesium 1.9 MG/DL (1.8-2.4) 03/08/17 05:04 Assessment and Plan (1) Acute on chronic renal insufficiency Status: Chronic Assessment and plan: 66-year-old man with: * CRF stage III. Creatinine 2.4 last month * Acute on chronic renal failure. Creatinine slightly higher than yesterday. I believe his weight 2 days ago was erroneous. His weight has decreased significantly over the past several days. IV Lasix will be changed to p.o. Zaroxolyn was added 2 days ago and will be continued * CAD. Cardiac cath with stents 01/23/2017 * Constipation. Improved * Anemia. Posttransfusion * Diabetes mellitus Current Visit: No (2) CAD (coronary artery disease) Status: Chronic Current Visit: Yes (3) Anemia Status: Acute Current Visit: Yes (4) Constipation Status: Resolved Current Visit: Yes (5) Coronary artery disease Status: Chronic Current Visit: No Qualifiers: [place] vs. transplanted heart: [place] heart Associated angina: without angina (6) Diabetes mellitus Status: Chronic Current Visit: No Qualifiers: Diabetes mellitus type: type 2 (7) Hypertension Status: Chronic Current Visit: No
[2017-03-08] MEDS: FUROSEMIDE 80 MG TABLET PO SCH (16:14)
[2017-03-09] MEDS: ALBUTEROL/IPRATROPIUM 3 ML NEB RESP TX SCH ×6 (00:34→19:14)
[2017-03-09] MEDS: INSULIN LISPRO 100 UNIT/ML SUBCUT SCH ×7 (00:55→16:59)
[2017-03-09] MEDS: POTASSIUM CHLORIDE 20 MEQ TABLET PO SCH (08:14)
[2017-03-09] MEDS: INSULIN GLARGINE 100 UNIT/ML SUBCUT SCH (08:14)
[2017-03-09] MEDS: FUROSEMIDE 80 MG TABLET PO SCH ×2 (08:14→16:46)
[2017-03-09] MEDS: ISOSORBIDE MONONITRATE 30 MG TABLET PO SCH (08:14)
[2017-03-09] MEDS: CLOPIDOGREL 75 MG TABLET PO SCH (08:14)
[2017-03-09] MEDS: PANTOPRAZOLE 40 MG TABLET PO SCH (08:14)
[2017-03-09] MEDS: metOLazone 5 MG TABLET PO SCH (08:15)
[2017-03-09] MEDS: LIDOCAINE 5% PATCH TRANSDERM SCH (08:15)
[2017-03-09] MEDS: METOPROLOL TARTRATE 100 MG TABLET PO SCH ×2 (08:15→20:34)
[2017-03-09] MEDS: ASPIRIN EC 81 MG TABLET PO SCH (08:15)
[2017-03-09] MEDS: FAMOTIDINE 20 MG TABLET PO SCH ×2 (08:15→20:34)
[2017-03-09] MEDS: POLYETHYLENE GLYCOL POWDER 17 GM PACK PO SCH (08:15)
[2017-03-09] MEDS: predniSONE 20 MG TABLET PO SCH (08:15)
[2017-03-09] MEDS: BISACODYL 5 MG TABLET PO SCH (08:20)
--- NOTE | 2017-03-09 08:21 | Nephrology Progress Note ---
Nephrology - PN: Subj Interval history: Patient denies shortness of breath. Review of systems GI denies nausea vomiting Physical exam general patient is in no acute distress, patient has no thigh edema he does have some gauze wrapping over his lower legs Assessment/plan 1. Acute renal failure on chronic renal failure-patient's creatinine was 2.6 mg/dL yesterday today's value is pending his creatinine has been stable the past few days 2. Diabetes mellitus 3. Hypertension 4. Anemia-patient's hematocrit stable around 27% Exam (PN)-Nephrology - Vital Signs Vital signs: Period Temp Pulse Resp BP Sys/Faulkner Pulse Ox Last 24 Hr 97.6 F-99.5 F 61-77 18-20 119-166/60-90 93-99 - Lab 03/08/17 05:04 03/08/17 05:04 Most recent lab results Calcium 8.8 MG/DL (8.5-10.1) 03/08/17 05:04 Magnesium 1.9 MG/DL (1.8-2.4) 03/08/17 05:04
--- NOTE | 2017-03-09 12:22 | Hospitalist Progress Note ---
Assessment and Plan - Time spent with patient Time spent with patient: Greater than 30 minutes (1) Diabetes mellitus Status: Chronic Current Visit: No Qualifiers: Diabetes mellitus type: type 2 (2) Dyslipidemia Status: Chronic Current Visit: No (3) Obesity Status: Chronic Current Visit: No Qualifiers: Body mass index: BMI 33.0-33.9 (4) Acute on chronic renal insufficiency Status: Chronic Current Visit: No (5) Hypertension Status: Chronic Current Visit: No (6) GLORIA (obstructive sleep apnea) Status: Chronic Current Visit: No (7) Acute on chronic diastolic CHF (congestive heart failure), NYHA class 3 Status: Acute Current Visit: Yes (8) Chronic anemia Status: Acute Assessment and plan: Lasix has been changed to oral, monitor input and output. Monitor electrolytes and renal function while Lasix. Lantus 40 mg daily and pre-meal insulin 10 units 3 times daily before meals. Nephrology follow-up Not on anticoagulation because of chronic anemia and occult GI bleed. H&H is stable. Continue dual antiplatelet therapy per cardiology Possible discharge tomorrow Current Visit: Yes Hospitalist: Subjective Interval history: Responded to diuresis, bilateral lower extremity swelling has improved significantly. Change IV Lasix to oral, already done by nephrology. No repeat hypoglycemic episodes recorded He has no new complaint Exam - Constitutional Vitals: Period Temp Pulse Resp BP Sys/Faulkner Pulse Ox Last 24 Hr 97.6 F-99.5 F 62-77 16-20 119-166/60-90 92-99 Exam: Exam: General: [Appears well with no apparent distress.] [Pleasant and cooperative. ] [Appears comfortable.] HEENT: [PERRL, normocephalic, atraumatic. Poor dentition . Mucous membranes moist. No jaundice noted. Conjunctiva moist and clear, sclerae anicteric] Neck: Unable to assess for JVD due to habitus. No thyromegaly or lymphadenopathy noted. No carotid bruit appreciated Cardiac: [Regular rate and rhythm.] [No murmur rub or gallop.] Lungs: [Clear to auscultation without accessory muscle use to assist the respiratory pattern.] Not using oxygen at this time Abdomen: Soft, less protuberant. Bowel sounds hyperactive. Nontender, large. No abdominal bruit or thrill noted. No masses noted. Musculoskeletal: No fluid collection. Decreased range of motion is noted. Extremities: Both lower extremities are wrapped but edema has improved significantly. Upper extremity pulses 2+. Skin: No skin breakdown appreciated. Skin turgur brisk. Neuro: Awake, alert and oriented 3. Moves all extremities well without hemiparesis or paralysis. No essential tremor is appreciated. Results - Labs CBC & BMP: 03/08/17 05:04 03/08/17 05:04 Lab Results: I have reviewed the past 24 hour labs
[2017-03-10] MEDS: ALBUTEROL/IPRATROPIUM 3 ML NEB RESP TX SCH ×5 (00:19→14:25)
[2017-03-10] MEDS: INSULIN LISPRO 100 UNIT/ML SUBCUT SCH ×7 (01:20→17:21)
--- NOTE | 2017-03-10 08:00 | Nephrology Progress Note ---
Nephrology - PN: Subj Interval history: Patient is without complaints Physical exam general the patient in no acute distress Assessment/plan 1. Acute renal failure on chronic renal failure 2. Diabetes mellitus 3. Hypertension 4. Anemia Exam (PN)-Nephrology - Vital Signs Vital signs: Period Temp Pulse Resp BP Sys/Faulkner Pulse Ox Last 24 Hr 97.7 F-98.6 F 62-76 16-20 105-140/57-72 94-99 - Lab 03/08/17 05:04 03/08/17 05:04 Most recent lab results Calcium 8.8 MG/DL (8.5-10.1) 03/08/17 05:04 Magnesium 1.9 MG/DL (1.8-2.4) 03/08/17 05:04
[2017-03-10] MEDS: PANTOPRAZOLE 40 MG TABLET PO SCH (08:16)
[2017-03-10] MEDS: CLOPIDOGREL 75 MG TABLET PO SCH (08:16)
[2017-03-10] MEDS: INSULIN GLARGINE 100 UNIT/ML SUBCUT SCH (08:16)
[2017-03-10] MEDS: FAMOTIDINE 20 MG TABLET PO SCH (08:16)
[2017-03-10] MEDS: POTASSIUM CHLORIDE 20 MEQ TABLET PO SCH (08:16)
[2017-03-10] MEDS: ASPIRIN EC 81 MG TABLET PO SCH (08:16)
[2017-03-10] MEDS: predniSONE 20 MG TABLET PO SCH (08:16)
[2017-03-10] MEDS: FUROSEMIDE 80 MG TABLET PO SCH ×2 (08:16→16:12)
[2017-03-10] MEDS: BISACODYL 5 MG TABLET PO SCH (08:16)
[2017-03-10] MEDS: metOLazone 5 MG TABLET PO SCH (08:16)
[2017-03-10] MEDS: METOPROLOL TARTRATE 100 MG TABLET PO SCH (08:16)
[2017-03-10] MEDS: ISOSORBIDE MONONITRATE 30 MG TABLET PO SCH (08:16)
[2017-03-10] MEDS: POLYETHYLENE GLYCOL POWDER 17 GM PACK PO SCH (08:20)
[2017-03-10] MEDS: LIDOCAINE 5% PATCH TRANSDERM SCH (08:20)
[2017-03-10 12:07] VITALS: BP 110/62
--- NOTE | 2017-03-10 12:10 | Discharge Summary ---
Hospital Course - Hospital Course Hospital Course: 66-year-old man who presented with abdominal pain, chest pain and shortness of breath at Dr. Ospina's office where he was presenting for recheck of his serum creatinine levels. His pain had become on the day of admission after eating, he had tried home therapy with magnesium citrate with no improvement. At that point he had denied any associated shortness of breath, coughing or fever. He had just recently been taken off Lasix because of concern for excessive diuresis. Because he had had a previous myocardial infarction, he was admitted to CCU to rule out acute coronary syndrome with serial troponins and EKG. Acute coronary was ruled out and he was transferred to the floor. Nephrology was asked to see him for his acute kidney injury, his medication and diuresis were adjusted and he started to show improvement. After a few days in the hospital, he began noticing mild shortness of breath with bilateral lower extremity swelling worsening, he had to be switched back to IV Lasix and then transitioned back to oral just prior to discharge. In the last couple of days before discharge, he has remained stable, responded well to diuresis and was stable enough for discharge to outpatient follow-up. He was noted to have worsening anemia with occult blood in stool, gastroenterology saw him, he had an endoscopy done which only showed a small hiatal hernia. He is oral anticoagulation was discontinued as it was suspected to be because of his bleeding, he was started on dual antiplatelet therapy alone was cleared for discharge by gastroenterology. Rest of his hospital stay was uneventful and he reached maximum benefit of in- hospital care. - Time spent with patient Time with patient DS: Greater than 30 minutes (Time taken in coordination of posthospitalization documentation) Diagnosis - Discharge Diagnosis (1) Diabetes mellitus Status: Chronic (2) Dyslipidemia Status: Chronic (3) Obesity Status: Chronic (4) Acute on chronic renal insufficiency Status: Chronic (5) Hypertension Status: Chronic (6) GLORIA (obstructive sleep apnea) Status: Chronic (7) Acute on chronic diastolic CHF (congestive heart failure), NYHA class 3 Status: Acute (8) Chronic anemia Status: Acute Discharge Plan - Discharge Data Disposition: Disch To Home/Self Care Condition at Discharge: Stable Discharge Diet: low salt diet Activity: resume usual activities as tolerated - Discharge Medications New Aspirin EC Tab 81 mg PO DAILY #30 tablet Furosemide Tab [Lasix Tab] 80 mg PO BID DIURETIC #60 tablet HYDROcodone/ACETAMIN 5-325 [[place] 5-325] 1 tablet PO Q6H PRN #20 tablet PRN Reason: Pain Moderate (4-7) Insulin Aspart [NovoLOG FlexPen] 10 unit SUBCUT TID W/MEALS 30 Days Isosorbide Mononitrate [Imdur] 30 mg PO DAILY #30 tablet metOLazone [Zaroxolyn] 5 mg PO DAILY #30 tablet hydrALAZINE TAB [Apresoline Tab] 100 mg PO TID #120 tablet Metoprolol Tartrate Tab [Lopressor Tab] 100 mg PO BID #30 tablet Continue Ascorbic Acid Tab [Vitamin C Tab] 500 mg PO DAILY Nitroglycerin Sl Tab [Nitrostat] 0.4 mg SL Q5M PRN #1 bottle PRN Reason: Chest Pain hydrALAZINE TAB [Apresoline Tab] 100 mg PO TID #90 tablet Insulin Aspart [NovoLOG] 17 units SUBCUT TIDAC Fluticasone Propionate [Fluticasone 50 mcg Nasal [place]] 1 spray BOTH NARES DAILY PRN PRN Reason: Allergy Symptoms raNITIdine HCl [Ranitidine HCl] 150 mg PO BID Rosuvastatin [Crestor] 40 mg PO DAILY Insulin Degludec [Tresiba Flextouch U-200] 50 units SUBCUT QAM Clopidogrel [Plavix] 75 mg PO DAILY #30 tablet NIFEdipine XL TAB [Procardia Xl] 90 mg PO DAILY #30 tablet Loratadine [Claritin] 10 mg PO DAILY #15 tablet Discontinued guaiFENesin [Guaifenesin] 400 mg PO BID Apixaban [Eliquis] 2.5 mg PO BID #60 tablet - Follow Up or Referral - Forms/Instructions Additional Discharge Instructions: Follow-up with nephrology as outpatient. Cardiology follow-up as outpatient. PCP in 1-2 weeks Exam - Constitutional Vitals: Period Temp Pulse Resp BP Sys/Faulkner Pulse Ox Last 24 Hr 97.7 F-98.6 F 63-76 16-20 105-140/57-72 94-99 Discharge Results Procedures and tests throughout hospitalization: Pending Orders 02/26/17 11:10 Occult Blood, Stool Routine 03/02/17 20:00 Occult Blood, Stool Routine Labs on day of discharge: Labs from last 24 hours 03/10/17 03/09/17 03/09/17 05:46 15:40 12:12 POC Glucose 141 H 286 H 154 H DS: Provider Date of admission: 02/26/17 19:30 Primary care physician: . No PCP Attending physician on admission: Francisco Gloria MD Consults: 02/26/17 21:27 Consult to Physician [CONS] Routine Comment: CHF Consulting Provider: Vinicius Yepez Person Notified: Yelitza Borden NP Date Notified: 02/27/17 Time Notified: 07:50 Consult to Physician [CONS] Routine Comment: elevated creatinine Consulting Provider: Jacob Corona Person Notified: Amy Date Notified: 02/27/17 Time Notified: 08:40 02/27/17 09:19 Consult to Physician [CONS] Routine Comment: anemia Consulting Provider: Nickolas Kennedy Person Notified: terence Date Notified: 02/27/17 03/01/17 10:53 PT [Consult to Physical Therapy] [CONS] Routine Reason for Physical Therapy: Ambulation Start Therapy: Today Consult Comment: JAMILA 03/01/17 15:43 Consult to Case Mgmt/Social Srvs [CONS] Routine Reason for Case Mgmt/Social Srvs: Rehab Consult to Occupational Therapy [CONS] Routine Reason for Occupational Therapy: Evaluate and Treat Discharging clinician: Marcelo Doherty MD
== END 2017-03-10 18:09 | disposition home or self-care (01) | DRG 291 ==
LOC: N.ED 17:18 → SUATTDRO 19:30 → N.EDINP 19:30 → N.CC 19:46 → N.5E 03-01 23:56
PROVIDERS: ADMIT Internal Medicine; ATTEND Internal Medicine

== ENCOUNTER 2017-12-27 23:08 | Inpatient (IN) ==
[2017-12-29 07:41] VITALS: BP 134/78
== END 2017-12-29 11:15 | disposition home or self-care (01) | DRG 101 ==
LOC: N.ED 23:08 → N.EDINP 12-28 02:07 → N.5E 12-28 02:48
PROVIDERS: ADMIT Hospitalist; ATTEND Hospitalist